=== PATIENT | male | born 1925 | race Caucasian/White ===

== ENCOUNTER 2016-11-27 06:23 | Inpatient (IN) | payer MEDICARE, BC ==
[2016-11-27] MEDS ORDERED: Metoprolol Tartrate 5 MG/5 ML SDV IVPUSH ONE (06:35)
[2016-11-27] MEDS ORDERED: Aspirin 81 MG Tab.Chew CHEW ONE (06:35)
[2016-11-27] MEDS ORDERED: Famotidine 20 MG/2 ML SDV IVPUSH ONE (06:35)
[2016-11-27] MEDS ORDERED: Ticagrelor 90 MG Tab PO ONE (06:35)
[2016-11-27] MEDS ORDERED: Nitroglycerin 0.4 MG Tab.SL SL STA ×2 (06:41→07:02)
[2016-11-27] MEDS: Sodium Chloride 0.9% 10 ML Syringe FLUSH PRN ×2 (06:50→08:20)
--- NOTE | 2016-11-27 06:56 | EDM.PDOC ---
ED HPI GENERAL MEDICAL PROBLEM - General Chief Complaint: Cardiovascular Problem Stated Complaint: chest pain Time Seen by Provider: 11/27/16 06:25 Source of Information: Reports: Patient, Custodial Records (Limited records from [facility]), Old Records ([facility] EMR. No paper hospital chart available.) History Limitations: Reports: No Limitations - History of Present Illness INITIAL COMMENTS - FREE TEXT/NARRATIVE: The patient was brought to the emergency room via transport vehicle from [facility] for evaluation of nonspecific 5/10 bilateral sharp chest pain/pressure with radiation to the right shoulder, right arm, and back region with symptoms starting at about 04:00 A.m. this morning. He was apparently given Tylenol at the [facility] with no other treatment prior to arrival. Note that the symptoms did awaken him from sleep. The patient denies any heart flutter, dizziness, orthostasis, orthopnea, diaphoresis, paresthesias , recent decreased exercise tolerance, or any other anginal-type symptoms, although his overall activity level is low. No recent history of abdominal pain , heartburn, nausea, diarrhea, melena, gross hematochezia, or any food intolerance, including fatty foods, etc.. The patient also denies any recent fever, cough, wheezing, dyspnea, etc.. No history of recent visual changes, diplopia, change in mental status, or other change in neurological status. Also note that the patient's blood pressure was elevated at the [facility] with a reading of 201/109 with mild headache and nonspecific "dopiness" at that time. Onset: Today, Sudden Onset Date: 11/27/16 Onset Time: 04:00 Duration: Improving Location: Reports: Chest, Back, Upper Extremity, Right, Radiates to (As above). Denies: Head, Face, Neck, Abdomen, Pelvis, Upper Extremity, Left Quality: Reports: Ache, Pressure (Tightness), Sharp Severity: Moderate Improves with: Reports: None Worsens with: Reports: None Context: Reports: Other (As above) Associated Symptoms: Reports: Cough. Denies: Confusion, Chest Pain, Diaphoresis , Fever/Chills, Headaches, Loss of Appetite, Malaise, Nausea/Vomiting, Seizure, Shortness of Breath, Syncope, Weakness Treatments DESCRIPTIVE CATALOG LIBRARIAN: Reports: Acetaminophen Bilateral Middle Chest Pain Score (Numeric/FACES): 5 - Related Data Allergies Allergy/AdvReac Type Severity Reaction Status Date / Time No Known Allergies Allergy Verified 11/27/16 06:38 Home Meds: Home Meds Acetaminophen with Codeine [Tylenol with Codeine #3 Tablet] 1 tab PO Q3HR PRN [History] Aspirin [Halfprin] 81 mg PO DAILY 03/14/15 [History] Furosemide [Lasix] 60 mg PO DAILY 03/14/15 [History] Ketotifen [Ketotifen 0.025% Ophth Soln] 2 drop .XX ASDIRECTED PRN 03/14/15 [ History] Loperamide HCl [Imodium A-D] 2 mg PO ONETIME PRN 03/14/15 [History] Metoprolol Tartrate 50 mg PO BID 03/14/15 [History] Miconazole Nitrate [Anti-Fungal Cream] 1 ml TP ASDIRECTED PRN 03/14/15 [History] Multivitamin [Multi-Vitamin Daily] 1 tab PO DAILY 03/14/15 [History] Naproxen Sodium 220 mg PO BID 03/14/15 [History] Naproxen Sodium 220 mg PO DAILY PRN 03/14/15 [History] Potassium Chloride [Klor-Con M20] 20 meq PO DAILY 03/14/15 [History] Simvastatin [Zocor] 40 mg PO BEDTIME 03/14/15 [History] Triamcinolone Acetonide [Triamcinolone Acetonide 0.5%] 1 ml TOP ASDIRECTED PRN 03/14/15 [History] predniSONE [Prednisone] 5 mg PO DAILY 03/14/15 [History] Albuterol/Ipratropium [DuoNeb 3.0-0.5 MG/3 ML] 3 ml NEB Q4HRRT PRN #90 neb 03/20 [Rx] Acetaminophen [Tylenol Arthritis Pain] 650 mg PO BID 11/27/16 [History] Acetaminophen [Tylenol Extra Strength] 500 mg PO BID PRN 11/27/16 [History] Albuterol/Ipratropium [DuoNeb 3.0-0.5 MG/3 ML] 3 ml NEB BID 11/27/16 [History] Capsaicin 1 applic TOP QID PRN 11/27/16 [History] Dextran 70/Hypromellose [Artificial Tears] 1 drop EYEBOTH ASDIRECTED PRN [History] Gabapentin [Neurontin] 300 mg PO BEDTIME 11/27/16 [History] Hydrocortisone [Hydrocortisone 1% Crm] 1 applic TOP QID PRN 11/27/16 [History] Past Medical History HEENT History: Reports: Allergic Rhinitis, Cataract, Hard of Hearing, Impaired Vision, Other (See Below). 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 Denies: Afib, Aneurysm, Arrhythmia, Blood Clots/VTE/DVT, Heart Murmur, Pacemaker, Syncope Other Cardiovascular History: History of OH at age 88 requiring CABG as below, bilateral carotid occlusive disease with surgeries as below Respiratory History: Reports: Bronchitis, Recurrent, COPD, Intubation, Previous. Denies: Asthma, Intubation, Difficult, PE, Pneumothorax, Sleep Apnea Gastrointestinal History: Reports: Chronic Constipation, Chronic Diarrhea, Diverticulosis, GERD, GI Bleed, PUD, Other (See Below). Denies: Bowel Obstruction, Celiac Disease, Cholelithiasis, Colon Polyp, Fecal Incontinence, Gastritis, Hepatitis, Inflammatory Bowel Disease, Irritable Bowel Syndrome, Pancreatitis Other Gastrointestinal History: Upper GI bleed secondary to peptic ulcer disease in the 1980s requiring surgery as below, Mild dysphagia Genitourinary History: Reports: BPH, Retention, Urinary, Urinary Incontinence. Denies: Acute Renal Failure, Chronic Renal Insuffiency, Dialysis, Renal Calculus , STD, UTI, Recurrent Musculoskeletal History: Reports: Arthritis, Back Pain, Chronic, Neck Pain, Chronic, Osteoarthritis, Osteoporosis, RA, Other (See Below). 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 Denies: Alzheimers Disease, Brain Injury, Cerebral Aneurysms, CVA, Headaches, Chronic, Head Trauma, Migraines, MS, Parkinson's, Seizure, TIA Other Neuro History: Possible head concussion in his 30s Psychiatric History: Reports: Anxiety, Depression. Denies: Abuse, Victim of, ADD, ADHD, Addiction, Alzheimers Disease, Dementia, Psych Hospitalization(s), PTSD, Suicide Attempt Endocrine/Metabolic History: Reports: Diabetes, Type II, Multinodular Thyroid, Osteoporosis, Other (See Below). Denies: Hyperthyroidism, Hypothyroidism, IDDM Other Endocrine/Metabolic History: AODM currently treated with diet Hematologic History: Reports: Blood Transfusion(s), Other (See Below). Denies: Anemia, B12 Deficiency, Iron Deficiency Other Hematologic History: Blood transfusion of 2 units packed red blood cells in secondary to peptic ulcer disease as above Immunologic History: Reports: None. Denies: AIDS, HIV, SLE Oncologic (Cancer) History: Reports: Prostate, Other (See Below). Denies: Basal Cell Carcinoma, Hodgkin's Lymphoma, Leukemia, Lymphoma, Malignant Melanoma , Metastatic, Non-Hodgkin's Lymphoma, Squamous Cell Carcinoma, Thyroid Other Oncologic History: Prostate cancer with history of cryotherapy in his late 70s Dermatologic History: Reports: Cellulitis, Chronic Cellulitis, Decubitus Ulcer, Other (See Below). Denies: Eczema, Psoriasis, Venous Stasis Dermatitis Other Dermatologic History: Cutaneous Candidiasis, recurrent diabetic ulcers, recurrent cellulitis - Infectious Disease History Infectious Disease History: Reports: Chicken Pox, Measles, MRSA (Right ankle), Mumps. Denies: C-Difficile, Meningitis, Mononucleosis, Pertussis (Whooping Cough), Rheumatic Fever, Rubella, Scarlet Fever, Shingles, VRE - Past Surgical History Head Surgeries/Procedures: Reports: None HEENT Surgical History: Reports: Cataract Surgery, Eye Surgery, Oral Surgery, Other (See Below). Denies: Adenoidectomy, Laser Surgery, LASIK, Myringotomy w Tube(s), Naso-Sinus Surgery, Tonsillectomy Other HEENT Surgeries/Procedures: bilateral cataract surgery in about 2013, multiple teeth extractions Cardiovascular Surgical History: Reports: Carotid Endarterectomy, Coronary Artery Bypass, Vascular Surgery, Other (See Below). Denies: AAA Repair, Aneurysm, Cardiac Ablation, Coronary Artery Stent, Pacer, Percutaneous Transluminal Angioplasty, Varicose Other Cardiovascular Surgeries/Procedures: Bilateral carotid endarterectomy in about 2010, four-vessel CABG at age 88, right femoral artery bypass/stent placement in about 2010 Respiratory Surgical History: Reports: None. Denies: Lung Biopsies, Thoracentesis GI Surgical History: Reports: Appendectomy, Colonoscopy, Hernia, Inguinal, Other (See Below). Denies: Cholecystectomy, EGD, Hernia Repair/Other, Polypectomy Other GI Surgeries/Procedures: Right inguinal hernia repair in about 2001, appendectomy at about age 17, possible distant colonoscopy Male Surgical History: Reports: Circumcision, Prostate Biopsy, Other (See Below). Denies: Vasectomy Other Male Surgeries/Procedures: Circumcision as an , cryotherapy of prostate cancer as below Endocrine Surgical History: Reports: None. Denies: Thyroid Biopsy Neurological Surgical History: Denies: C-Spine, Discectomy, Laminectomy, Lumbar Spine, Sacral Spine, Vertebroplasty Musculoskeletal Surgical History: Reports: Joint Replacement, Knee Replacement, Shoulder Replacement, Shoulder Surgery, Other (See Below). Denies: Amputation, Arthroscopic Knee, Arthroscopic Procedure, Carpal Tunnel, Ganglion Cyst, Hip Replacement, ORIF Other Musculoskeletal Surgeries/Procedures:: bilateral total knee arthroplasty with right TKA in about 2011 with left TKA in about 2012, right shoulder replacement in 2013 Oncologic Surgical History: Reports: None Dermatological Surgical History: Reports: None - Past Imaging History Past Imaging History: Reports: Angiography (Heart catheterization at age 88), Carotid US (Last carotid artery Doppler studies on 10/17/14), CAT Scan (CT of the abdomen and pelvis on 03/15/15), Swallow Study (03/16/15), Ultrasound (Last ultrasound of thyroid gland on 10/30/16 with previous evaluations on 08/23/15 and 10/13/13) Social & Family History - Family History HEENT: Reports: None. Denies: Glaucoma, Macular Degeneration, Retinal Detachment Cardiac: Reports: CAD, Heart Failure, Other (See Below). Denies: Afib, Aneurysm , Arrhythmia, Blood Clots/VTE/DVT, High Cholesterol, Hypertension, OH, PVD/COD, Syncope Other Cardiac Family History: Father with fatal CHF at age 75, brother with history of 5 vessel CABG at age 75, brother with CABG 2 at an unknown age Respiratory: Reports: None. Denies: Asthma, COPD, PE, Pneumothorax, Sleep Apnea GI: Reports: Cholelithiasis, Other (See Below). Denies: Celiac Disease, GERD, GI bleed, Inflammatory Bowel Disease, Irritable Bowel Syndrome, PUD Other GI Family History: Mother with cholelithiasis : Reports: None. Denies: Dialysis, Renal Calculus, Renal Disease/ Insufficiency OBGYN: Reports: None. Denies: Endometriosis, Recurrent Spontaneous Musculoskeletal: Reports: None. Denies: Gout, RA, SLE Neurological: Reports: CVA, Parkinson's, Other (See Below). Denies: Alzheimers Disease, Cerebral Aneurysms, Dementia, Migraines, MS, Seizure, TIA Other Neurological Family History: Mother with Parkinson's disease, father with CVA in his 70s Psychiatric: Reports: None. Denies: Abuse, Victim of, ADD, ADHD, Anxiety, Depression, Psych Hospitalization(s), PTSD, Suicide Attempt Endocrine/Metabolic: Reports: None. Denies: Diabetes, Type I, Diabetes, type II , Hypothyroidism, IDDM Hematologic: Reports: None. Denies: Anemia Immunologic: Reports: None. Denies: AIDS, HIV, SLE Dermatologic: Reports: None. Denies: Eczema, Psoriasis Oncologic: Reports: None. Denies: Colon, Hodgkin's Lymphoma, Leukemia, Lymphoma - Tobacco Use Smoking Status *Q: Former Smoker Tobacco Use Within Last Twelve Months: No Years of Tobacco use: 37 Packs/Tins Daily: 1 (Smoked between ages 20 and 57 with additional cigar use) Used Tobacco, but Quit: Yes Month Tobacco Last Used: 1984 Smoking Cessation Information Provided To Patient: No Second Hand Smoke Exposure: No Second Hand Smoke Education Provided: No - Caffeine Use Caffeine Use: Reports: Coffee (One cup per day). Denies: Energy Drinks, Soda, Tea - Alcohol Use Alcohol Use History: Yes Days Per Week of Alcohol Use: 0 (No previous DWIs, problems with alcohol abuse, etc.) Number of Drinks Per Day: 0 (No alcohol use since age 89) Total Drinks Per Week: 0 Alcohol Use in Last Twelve Months: No - Recreational Drug Use Recreational Drug Use: No Drug Use in Last 12 Months: No Recreational Drug Type: Denies: Amphetamines (Speed), Ativan, Cocaine, Heroin, Inhalants (Glues, Solvents, Aerosols), LSD (Acid), Marijuana/Hashish, Methamphetamine, Morphine - Living Situation & Occupation Living situation: Reports: Extended Care Facility ([facility] in [place], basic side admitted 09/10/14) 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 Denies: Fever, Chills, Malaise, Weakness , Fatigue, Night Sweats, Diaphoresis, Decreased Appetite, Weight Loss, Weight Gain HEENT: Reports: Glasses, Hearing Loss (Stable chronic). Denies: Dental Pain, Ear Discharge, Ear Pain, Eye Pain, Rhinitis, Sinus Problem, Throat Pain, Throat Swelling, Vertigo Respiratory: Reports: No Symptoms. Denies: Shortness of Breath, Wheezing, Pleuritic Chest Pain, Cough, Sputum Cardiovascular: Reports: Chest Pain, Blood Pressure Problem, Edema (Dependent). Denies: Claudication, Dyspnea on Exertion, Lightheadedness, Orthopnea, Palpitations, PND, Syncope Endocrine: Reports: No Symptoms. Denies: Fatigue GI/Abdominal: Denies: Abdominal Pain, Anorexia, Black Stool, Bloody Stool, Constipation, Diarrhea, Decreased Appetite, Difficulty Swallowing, Distension, Flatus, Hematemesis, Hematochezia, Melena, Mucous in Stool, Nausea, Stool Incontinence, Vomiting : Reports: Incontinence (Stable). Denies: Discharge, Dysuria, Flank Pain, Frequency, Hematuria, Pain, Urgency, Urinary Retention Musculoskeletal: Reports: Shoulder Pain (Right), Arm Pain (Right). Denies: Neck Pain, Back Pain Skin: Reports: Erythema, Wound (Right lateral malleolus). Denies: Diaphoresis, Bruising, Pruritis Neurological: Reports: Headache, Difficulty Walking (Uses cane). Denies: Confusion, Dizziness, Numbness, Paresthesia, Seizure, Syncope, Tingling, Trouble Speaking, Weakness, Change in Speech Psychiatric: Reports: No Symptoms. Denies: Agitation, Anxiety, Confusion, Depression, Hallucinations, Homicidal Ideation, Suicidal Ideation Hematologic/Lymphatic: Reports: No Symptoms Immunologic: Reports: No Symptoms ED EXAM, GENERAL - Physical Exam Exam: See Below Exam Limited By: No Limitations General Appearance: Alert, WD/WN, No Apparent Distress Eye Exam: Bilateral Eye: EOMI, Normal Inspection (No nystagmus), Periorbital Changes Ears: Normal External Exam, Normal Canal, Normal TMs, Hearing Loss (Moderate bilateral presbycusis with patient only wearing his right hearing aid) Nose: Normal Inspection, Normal Mucosa, No Blood Throat/Mouth: Normal Lips, Normal Teeth (Complete upper dentures and partial lowers), Normal Gums, Normal Oropharynx, Normal Voice, No Airway Compromise. No : Dysphagia, Perioral Cyanosis Head: Atraumatic, Normocephalic. No: Facial Swelling, Facial Tenderness, Sinus Tenderness Neck: Supple, Non-Tender, Full Range of Motion, Carotid Bruit (Mild bilateral carotid bruits versus transmitted heart sounds). No: Lymphadenopathy (L), Thyromegaly (Despite history as above) Respiratory/Chest: No Respiratory Distress, No Accessory Muscle Use, Chest Non- Tender, Rales (Mild bilateral basilar rales). No: Rhonchi, Wheezing, Pleural Rub, Retractions Cardiovascular: Normal Peripheral Pulses, Regular Rate, Rhythm, No Gallop, No JVD, No Murmur, No Rub, Systolic Murmur (Mild 1/6 CAPO of the aortic valve). No : No Edema (Dependent edema as below), Diastolic Murmur, Gallop/S3, Gallop/S4, Extra Beats (No extrasystoles at time of exam), Friction Rub Peripheral Pulses: 2+: Radial (L), Radial (R), Dorsalis Pedis (L), Dorsalis Pedis (R) GI/Abdominal: Normal Bowel Sounds, Soft, Non-Tender, No Organomegaly, No Distention, No Abnormal Bruit, No Mass, Pelvis Stable. No: Guarding (Male) Exam: Deferred Rectal (Males) Exam: Deferred Back Exam: Normal Inspection, Full Range of Motion. No: CVA Tenderness (L), CVA Tenderness (R), Muscle Spasm Extremities: Non-Tender, Normal Capillary Refill, Pedal Edema (+1 bilateral pedal/pretibial edema), Limited Range of Motion (Right shoulder secondary to previous surgery), Redness (As below), Other (1 cm grade 2 diabetic/pressure ulcer with eschar noted over the right lateral malleolus, dressing in place with no discharge, 4 cm area surrounding +1 erythema with no lymphangitis). No : Monet's Sign Neurological: Alert, Oriented, CN II-XII Intact, Normal Cognition, Normal Gait, Normal Reflexes (Negative Babinski's), No Motor/Sensory Deficits Psychiatric: Normal Affect, Normal Mood Skin Exam: Erythema (As above), Wound/Incision (As above). No: Diaphoretic, Ecchymosis Lymphatic: No Adenopathy EKG INTERPRETATION EKG Date: 11/27/16 Time: 06:20 Rhythm: NSR Rate (Beats/Min): 71 [place]: Normal (Left cardiac) P-Wave: Present (Mild diffuse biphasic P waves with extreme poor R-wave progression in the anterior leads) QRS: Normal (QRS interval of 0.09 seconds) ST-T: Normal QT: Normal IL/PQ Interval: 0.22 seconds representing a first degree AV block Comparison: NA - No Prior EKG EKG Interpretation Comments: 1. No acute ischemic changes 2. First-degree AV block Course - Vital Signs Last Recorded V/S: Last Vital Signs Temp 36.5 C 11/27/16 06:32 Pulse 66 11/27/16 08:26 Resp 19 11/27/16 08:26 BP 107/60 11/27/16 08:26 Pulse Ox 100 11/27/16 08:26 Vital Signs - 24 hr 11/27/16 11/27/16 11/27/16 06:29 06:32 06:35 Temperature [ 36.5 C Temporal] Pulse, Peripheral Pulse, 70 Peripheral [ Right Pulse Oximetry] Respiratory 17 Rate Blood Pressure Blood Pressure 219/101 H [Right Upper Arm] O2 Sat by Pulse 100 Oximetry O2 Sat by Pulse 100 100 Oximetry [ Nasal Cannula] 11/27/16 11/27/16 11/27/16 06:37 06:48 06:49 Temperature [ Temporal] Pulse, 74 Peripheral Pulse, 74 Peripheral [ Right Pulse Oximetry] Respiratory 18 Rate Blood Pressure 215/93 H 215/93 H Blood Pressure 215/93 H [Right Upper Arm] O2 Sat by Pulse 99 Oximetry O2 Sat by Pulse Oximetry [ Nasal Cannula] 11/27/16 11/27/16 11/27/16 06:55 07:02 07:03 Temperature [ Temporal] Pulse, Peripheral Pulse, 71 73 Peripheral [ Right Pulse Oximetry] Respiratory 20 Rate Blood Pressure 205/109 H Blood Pressure 205/109 H 205/109 H [Right Upper Arm] O2 Sat by Pulse 100 Oximetry O2 Sat by Pulse Oximetry [ Nasal Cannula] 11/27/16 11/27/16 11/27/16 07:10 07:20 07:22 Temperature [ Temporal] Pulse, Peripheral Pulse, 73 72 71 Peripheral [ Right Pulse Oximetry] Respiratory 21 H 20 20 Rate Blood Pressure Blood Pressure 168/101 H 168/101 H 123/75 [Right Upper Arm] O2 Sat by Pulse 100 100 99 Oximetry O2 Sat by Pulse Oximetry [ Nasal Cannula] 11/27/16 11/27/16 11/27/16 07:40 07:55 08:15 Temperature [ Temporal] Pulse, Peripheral Pulse, 67 71 70 Peripheral [ Right Pulse Oximetry] Respiratory 15 15 18 Rate Blood Pressure 192/86 H Blood Pressure 148/85 H 185/97 H 192/86 H [Right Upper Arm] O2 Sat by Pulse 94 L 100 100 Oximetry O2 Sat by Pulse Oximetry [ Nasal Cannula] 11/27/16 08:26 Temperature [ Temporal] Pulse, Peripheral Pulse, 66 Peripheral [ Right Pulse Oximetry] Respiratory 19 Rate Blood Pressure Blood Pressure 107/60 [Right Upper Arm] O2 Sat by Pulse 100 Oximetry O2 Sat by Pulse Oximetry [ Nasal Cannula] - Orders/Labs/Meds Orders: Active Orders 24 hr Category Date Time Status Cardiac Monitoring [RC] . DIRECTED Care 11/27/16 06:35 Active EKG Documentation Completion [RC] ASDIRECTED Care 11/27/16 06:35 Active Oxygen Therapy, ED [RC] CONTINUOUS Care 11/27/16 06:35 Active Peripheral IV Care [RC] . DIRECTED Care 11/27/16 06:35 Active Pulse Oximetry [RC] CONTINUOUS Care 11/27/16 06:35 Active Up With Assistance [RC] PFP Care 11/27/16 06:35 Active Vital Signs [RC] PFP Care 11/27/16 06:35 Active Nothing per Oral Now Diet [DIET] Diet 11/27/16 Breakfast Active Chest 1V Frontal [CR] Stat Exams 11/27/16 06:35 Ordered CULTURE WOUND + SMEAR [RM] Stat Lab 11/27/16 07:19 Uncollected Nitroglycerin [Nitrostat] Med 11/27/16 06:41 Stat 0.4 mg SL ONETIME STA Nitroglycerin [Nitrostat] Med 11/27/16 07:02 Stat 0.4 mg SL ONETIME STA Sodium Chloride 0.9% [Saline Flush] Med 11/27/16 06:35 Active 10 ml FLUSH ASDIRECTED PRN Obtain Past Medical Record [OM.PC] Urgent Oth 11/27/16 06:35 Active Peripheral IV Insertion Adult [OM.PC] Stat Oth 11/27/16 06:35 Ordered Resuscitation Status Stat Resus Stat 11/27/16 06:35 Ordered EKG 12 Lead [EK] Stat Ther 11/27/16 06:20 Ordered Medication Orders Isosorbide Mononitrate (Imdur) 30 mg PO DAILY SINA Last Admin: 11/27/16 08:15 Dose: 30 mg Nitroglycerin (Nitrostat) 0.4 mg SL ONETIME STA Stop: 11/28/16 06:42 Last Admin: 11/27/16 06:49 Dose: 0.4 mg Nitroglycerin (Nitrostat) 0.4 mg SL ONETIME STA Stop: 11/28/16 07:03 Last Admin: 11/27/16 07:03 Dose: 0.4 mg Sodium Chloride (Saline Flush) 10 ml FLUSH ASDIRECTED PRN PRN Reason: Keep Vein Open Last Admin: 11/27/16 06:50 Dose: 10 ml Labs: Laboratory Tests 11/27/16 11/27/16 11/27/16 Range/Units 06:30 06:30 06:30 WBC 7.0 (4.0-10.2) K/uL RBC 4.68 (4.33-5.41) M/uL Hgb 14.4 (13.1-16.8) g/dL Hct 43.6 (39.0-49.0) % MCV 93.2 (84.0-98.0) fL MCH 30.8 (28.2-33.3) pg MCHC 33.0 (31.7-36.0) g/dL RDW 12.5 (11.2-14.1) % Plt Count 187 (150-350) K/uL Neut % (Auto) 59.6 (45.0-80.0) % Lymph % (Auto) 27.5 (10.0-50.0) % [place] % (Auto) 8.0 (2.0-14.0) % Eos % (Auto) 3.9 (0.0-5.0) % Baso % (Auto) 1.0 (0.0-2.0) % Neut # (Auto) 4.16 (1.40-7.00) K/uL Lymph # (Auto) 1.92 (0.50-3.50) K/uL [place] # (Auto) 0.56 (0.00-1.00) K/uL Eos # (Auto) 0.27 (0.00-0.50) K/uL Baso # (Auto) 0.07 (0.00-0.20) K/uL PT 10.9 (9.8-11.7) SEC INR 1.0 APTT 24.8 (23.5-30.0) SEC D-Dimer, Quantitative 638 H (0-400) ng/mL Sodium (136-145) mmol/L Potassium (3.5-5.1) mmol/L Chloride (98-107) mmol/L Carbon Dioxide (21.0-32.0) mmol/L BUN (7-18) mg/dL Creatinine (0.51-1.17) mg/dL Est Cr Clr Drug Dosing Estimated GFR (MDRD) mL/min Glucose (74-106) mg/dL Lactic Acid (0.4-2.0) mmol/L Uric Acid (2.6-7.2) mg/dL Calcium (8.5-10.1) mg/dL Magnesium (1.8-2.4) mg/dL Total Bilirubin (0.2-1.0) mg/dL AST (15-37) U/L ALT (12-78) U/L Alkaline Phosphatase (46-116) IU/L Creatine Kinase (26-308) U/L Creatine Kinase Index (0.0-2.5) % CK-MB (CK-2) (0.00-3.60) ng/mL Troponin I (0.000-0.056) ng/mL Eko-V-Hnkoitvrboh Pept (0-125) pg/mL Total Protein (6.4-8.2) g/dL Albumin (3.4-5.0) g/dL TSH, Ultra Sensitive (0.358-3.740) mIU/mL 11/27/16 11/27/16 Range/Units 06:30 06:30 WBC (4.0-10.2) K/uL RBC (4.33-5.41) M/uL Hgb (13.1-16.8) g/dL Hct (39.0-49.0) % MCV (84.0-98.0) fL MCH (28.2-33.3) pg MCHC (31.7-36.0) g/dL RDW (11.2-14.1) % Plt Count (150-350) K/uL Neut % (Auto) (45.0-80.0) % Lymph % (Auto) (10.0-50.0) % [place] % (Auto) (2.0-14.0) % Eos % (Auto) (0.0-5.0) % Baso % (Auto) (0.0-2.0) % Neut # (Auto) (1.40-7.00) K/uL Lymph # (Auto) (0.50-3.50) K/uL [place] # (Auto) (0.00-1.00) K/uL Eos # (Auto) (0.00-0.50) K/uL Baso # (Auto) (0.00-0.20) K/uL PT (9.8-11.7) SEC INR APTT (23.5-30.0) SEC D-Dimer, Quantitative (0-400) ng/mL Sodium 140 (136-145) mmol/L Potassium 4.2 (3.5-5.1) mmol/L Chloride 102 (98-107) mmol/L Carbon Dioxide 31.2 (21.0-32.0) mmol/L BUN 26 H (7-18) mg/dL Creatinine 1.24 H (0.51-1.17) mg/dL Est Cr Clr Drug Dosing TNP Estimated GFR (MDRD) 55 mL/min Glucose 127 H (74-106) mg/dL Lactic Acid 0.5 (0.4-2.0) mmol/L Uric Acid 7.3 H (2.6-7.2) mg/dL Calcium 8.9 (8.5-10.1) mg/dL Magnesium 2.1 (1.8-2.4) mg/dL Total Bilirubin 0.5 (0.2-1.0) mg/dL AST 34 (15-37) U/L ALT 27 (12-78) U/L Alkaline Phosphatase 45 L (46-116) IU/L Creatine Kinase 60 (26-308) U/L Creatine Kinase Index 3.5 H (0.0-2.5) % CK-MB (CK-2) 2.10 (0.00-3.60) ng/mL Troponin I 0.021 (0.000-0.056) ng/mL Nho-H-Ubnzmclexrh Pept 1124 H (0-125) pg/mL Total Protein 7.0 (6.4-8.2) g/dL Albumin 3.7 (3.4-5.0) g/dL TSH, Ultra Sensitive 1.357 (0.358-3.740) mIU/mL Meds: Medications Generic Name Dose Route Start Last Admin Trade Name Freq PRN Reason Stop Dose Admin Isosorbide Mononitrate 30 mg 11/27/16 08:00 11/27/16 08:15 Imdur PO 30 mg DAILY SINA Administration Nitroglycerin 0.4 mg 11/27/16 06:41 11/27/16 06:49 Nitrostat SL 11/28/16 06:42 0.4 mg ONETIME STA Administration Nitroglycerin 0.4 mg 11/27/16 07:02 11/27/16 07:03 Nitrostat SL 11/28/16 07:03 0.4 mg ONETIME STA Administration Sodium Chloride 10 ml 11/27/16 06:35 11/27/16 08:20 Saline Flush FLUSH 10 ml ASDIRECTED PRN Administration Keep Vein Open Discontinued Medications Generic Name Dose Route Start Last Admin Trade Name Freq PRN Reason Stop Dose Admin Aspirin 324 mg 11/27/16 06:35 11/27/16 06:48 Aspirin CHEW 11/27/16 06:36 324 mg ONETIME ONE Administration Famotidine 40 mg 11/27/16 06:35 11/27/16 06:48 Pepcid IVPUSH 11/27/16 06:36 40 mg ONETIME ONE Administration Furosemide 60 mg 11/27/16 07:02 11/27/16 07:05 Lasix IVPUSH 11/27/16 07:03 60 mg NOW ONE Administration Labetalol HCl 10 mg 11/27/16 07:11 11/27/16 07:14 Normodyne IVPUSH 11/27/16 07:12 10 mg ONETIME ONE Administration Protocol Labetalol HCl 10 mg 11/27/16 07:59 11/27/16 08:18 Normodyne IVPUSH 11/27/16 08:00 10 mg ONETIME ONE Administration Protocol Metoprolol Tartrate 2.5 mg 11/27/16 06:35 11/27/16 06:48 Lopressor IVPUSH 11/27/16 06:36 2.5 mg ONETIME ONE Administration Ticagrelor 180 mg 11/27/16 06:35 11/27/16 06:48 Brilinta PO 11/27/16 06:36 180 mg ONETIME ONE Administration - Radiology Interpretation Free Text/Narrative:: manager monitoring shows overall normal sinus rhythm with average heart rate in the 70s with occasional PVCs noted but no other significant arrhythmia Chest x-ray, portable, shows severe cardiomegaly with moderate CHF and COPD changes, however no pulmonary infiltrates, etc. Note status post medial sternotomy and right shoulder arthroplasty. Inna nye also noted Departure - Departure Time of Disposition: 08:30 Disposition: Admitted As Inpatient 68 Condition: Fair Clinical Impression: CHF (congestive heart failure), Coronary artery disease, Hypertension, D-dimer , elevated, Need for comfort care, Peptic reflux disease, Osteoarthritis, COPD ( chronic obstructive pulmonary disease), Mixed anxiety depressive disorder, Chest pain, PVCs (premature ventricular contractions), First degree AV block, Diabetes mellitus, Renal insufficiency - Problem List & Annotations (1) Chest pain SNOMED Code(s): 96852934 Code(s): R07.9 - CHEST PAIN, UNSPECIFIED Status: Acute Priority: High Current Visit: Yes Onset Date: 11/27/16 Annotation/Comment:: Chest pain protocol initiated in the emergency room. Telephone consultation at 07:45 a.m. this morning with Dr. Flanagan, hospitalist at the [facility] in [place], with no bed available in that facility. Various therapeutic options were given to the patient, who does not wish to be transferred to [place], including no further cardiology consultation, workup, procedures, etc. Note comfort care/no code status, which was confirmed with the patient today. Aggressive IV Lopressor, IV labetalol, IV Lasix, sublingual nitroglycerin etc. therapy as above was needed to control the patient's blood pressure and also as cardiac prophylaxis. Prognosis guarded with significantly elevated BNP and moderate CHF by chest x- ray. No echocardiogram or further cardiac workup secondary to his comfort care status as above. Initiate lisinopril, which would be beneficial both for his hypertension, diabetes, and CHF Qualifiers: Chest pain type: chest pain due to myocardial ischemia Ischemic chest pain type: unstable angina pectoris Qualified Code(s): I20.0 - Unstable angina (2) Hypertension SNOMED Code(s): 85643185 Code(s): I10 - ESSENTIAL (PRIMARY) HYPERTENSION Status: Acute Priority: High Current Visit: Yes Annotation/Comment:: Borderline hypertensive crisis on admission somewhat refractory to therapy as above. Continue medication adjustments during this hospitalization. Patient seems to respond better to labetalol with this therapy to be initiated on admission with additional Imdur as above Qualifiers: Hypertension type: essential hypertension Qualified Code(s): I10 - Essential (primary) hypertension (3) Coronary artery disease SNOMED Code(s): 55755402 Code(s): I25.10 - ATHSCL HEART DISEASE OF [place] CORONARY ARTERY W/O ANG PCTRS Status: Chronic Priority: High Current Visit: Yes Annotation/ Comment:: Note status post CABG as above Qualifiers: Coronary Disease-Associated Artery/Lesion type: bypass graft, autologous vein Associated angina: with unstable angina Qualified Code(s): I25.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 IV Lasix given in the emergency room Qualifiers: Congestive heart failure type: unspecified congestive heart failure type Congestive heart failure chronicity: unspecified congestive heart failure chronicity Qualified Code(s): I50.9 - Heart failure, unspecified (6) COPD (chronic obstructive pulmonary disease) SNOMED Code(s): 47510933 Code(s): J44.9 - CHRONIC OBSTRUCTIVE PULMONARY DISEASE, UNSPECIFIED Status : Chronic Priority: Medium Current Visit: Yes Annotation/Comment:: COPD by chest x-ray with no recent fever or bronchitic type symptoms Qualifiers: COPD type: emphysema Emphysema type: panlobular Qualified Code(s): J43.1 - Panlobular emphysema (7) D-dimer, elevated SNOMED Code(s): 057062995 Code(s): R79.89 - OTHER SPECIFIED ABNORMAL FINDINGS OF BLOOD CHEMISTRY Status: Acute Priority: High Current Visit: Yes Onset Date: 11/27/16 Annotation/Comment:: No clinical evidence of DVT or PE. CTA of the chest and venous Doppler studies of the lower extremities will be ordered shortly after admission. Delay of subcutaneous Lovenox for now secondary to labile blood pressures (8) Mixed anxiety depressive disorder SNOMED Code(s): 436095698 Code(s): F41.8 - OTHER SPECIFIED ANXIETY DISORDERS Status: Chronic Priority: Medium Current Visit: Yes Annotation/Comment:: Stable by history (9) Osteoarthritis SNOMED Code(s): 435959228 Code(s): M19.90 - UNSPECIFIED OSTEOARTHRITIS, UNSPECIFIED SITE Status: Chronic Priority: Medium Current Visit: Yes Annotation/Comment:: Stable by history Qualifiers: Osteoarthritis location: multiple joints Osteoarthritis type: primary Qualified Code(s): M15.0 - Primary generalized (osteo)arthritis (10) Peptic reflux disease SNOMED Code(s): 08323626 Code(s): K21.9 - GASTRO-ESOPHAGEAL REFLUX DISEASE WITHOUT ESOPHAGITIS Status: Chronic Priority: Medium Current Visit: Yes Annotation/Comment:: Stable by history with high-dose IV Pepcid given in the emergency room (11) Cellulitis, leg SNOMED Code(s): 065178579 Code(s): L03.119 - CELLULITIS OF UNSPECIFIED PART OF LIMB Status: Chronic Priority: Medium Current Visit: No Annotation/Comment:: Wound culture specimen obtained. Wound cleansed with exiting in the emergency room. 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 IV Lasix therapy with caution. Lisinopril as above. Glycosylated hemoglobin later today Qualifiers: Diabetes mellitus type: type 2 Diabetes mellitus complication status: with kidney complications Diabetes mellitus termite helper insulin use: without termite helper use Chronic kidney disease stage: stage 2 (mild) (13) First degree AV block SNOMED Code(s): 951492157 Code(s): I44.0 - ATRIOVENTRICULAR BLOCK, FIRST DEGREE Status: Acute Priority: Medium Current Visit: Yes Onset Date: 11/27/16 Annotation/ Comment:: Observe for now. Continue beta rosana therapy with caution (14) PVCs (premature ventricular contractions) SNOMED Code(s): 70445558 Code(s): I49.3 - VENTRICULAR PREMATURE DEPOLARIZATION Status: Acute Priority: High Current Visit: Yes Onset Date: 11/27/16 Annotation/Comment: : As above. Beta rosana therapy given in the emergency room (15) Renal insufficiency SNOMED Code(s): 225882470 Code(s): N28.9 - DISORDER OF KIDNEY AND URETER, UNSPECIFIED Status: Acute Priority: High Current Visit: Yes Onset Date: 11/27/16 Annotation/ Comment:: As above (16) Hyperlipidemia SNOMED Code(s): 99752711 Code(s): E78.5 - HYPERLIPIDEMIA, UNSPECIFIED Status: Chronic Priority: Medium Current Visit: Yes Annotation/Comment:: Lipid panel later today. Currently under therapy Qualifiers: Hyperlipidemia type: unspecified Qualified Code(s): E78.5 - Hyperlipidemia , unspecified - Problem List Review Problem List Initiated/Reviewed/Updated: Yes - My Orders Last 24 Hours: My Active Orders 11/27/16 06:20 EKG 12 Lead [EK] Stat 11/27/16 06:35 Cardiac Monitoring [RC] . DIRECTED EKG Documentation Completion [RC] ASDIRECTED Oxygen Therapy, ED [RC] CONTINUOUS Peripheral IV Care [RC] . DIRECTED Pulse Oximetry [RC] CONTINUOUS Up With Assistance [RC] PFP Vital Signs [RC] PFP Chest 1V Frontal [CR] Stat Sodium Chloride 0.9% [Saline Flush] 10 ml FLUSH ASDIRECTED PRN Obtain Past Medical Record [OM.PC] Urgent Peripheral IV Insertion Adult [OM.PC] Stat Resuscitation Status Stat 11/27/16 06:41 Nitroglycerin [Nitrostat] 0.4 mg SL ONETIME STA 11/27/16 07:02 Nitroglycerin [Nitrostat] 0.4 mg SL ONETIME STA 11/27/16 07:19 CULTURE WOUND + SMEAR [RM] Stat 11/27/16 Breakfast Nothing per Oral Now Diet [DIET] - Assessment/Plan Admission H&P: Please use this note as an admission H&P Last 24 Hours: My Active Orders 11/27/16 06:20 EKG 12 Lead [EK] Stat 11/27/16 06:35 Cardiac Monitoring [RC] . DIRECTED EKG Documentation Completion [RC] ASDIRECTED Oxygen Therapy, ED [RC] CONTINUOUS Peripheral IV Care [RC] . DIRECTED Pulse Oximetry [RC] CONTINUOUS Up With Assistance [RC] PFP Vital Signs [RC] PFP Chest 1V Frontal [CR] Stat Sodium Chloride 0.9% [Saline Flush] 10 ml FLUSH ASDIRECTED PRN Obtain Past Medical Record [OM.PC] Urgent Peripheral IV Insertion Adult [OM.PC] Stat Resuscitation Status Stat 11/27/16 06:41 Nitroglycerin [Nitrostat] 0.4 mg SL ONETIME STA 11/27/16 07:02 Nitroglycerin [Nitrostat] 0.4 mg SL ONETIME STA 11/27/16 07:19 CULTURE WOUND + SMEAR [RM] Stat 11/27/16 Breakfast Nothing per Oral Now Diet [DIET] Assessment:: As above Plan: As above. Extensive precautions were given to the patient, who is in agreement with the treatment plan. The patient will require about 3-4 days of inpatient/ acute care secondary to multiple health problems as above. René paul physician assumes care during today with [facility] to assume care tomorrow morning.
[2016-11-27] MEDS ORDERED: Furosemide 40 MG/4 ML VIAL IVPUSH ONE (07:02)
[2016-11-27] MEDS ORDERED: Labetalol 20 MG/4 ML Syringe IVPUSH ONE ×2 (07:11→07:59)
[2016-11-27 07:29] LABS: CHLORIDE,CL 102 mmol/L (98-107); SODIUM,NA 140 mmol/L (136-145)
[2016-11-27] MEDS ORDERED: Isosorbide Mononitrate 30 MG Tab.ER PO SCH (08:00)
[2016-11-27] MEDS ORDERED: CAPSAICIN TOP PRN (08:38)
[2016-11-27] MEDS ORDERED: Polyvinyl Alcohol 1.4% Ophth Soln 15 ML Bottle EYEBOTH PRN (08:38)
[2016-11-27] MEDS ORDERED: Temazepam 15 MG Cap PO PRN (08:40)
[2016-11-27] MEDS ORDERED: Sodium Chloride 0.9% 10 ML Syringe FLUSH PRN (08:40)
[2016-11-27] MEDS ORDERED: Lisinopril 10 MG Tab PO SCH (08:45)
[2016-11-27] MEDS ORDERED: Albuterol/Ipratropium 3.0-0.5 MG/3 ML Neb Soln NEB PRN (08:46)
[2016-11-27] MEDS ORDERED: Iopamidol 755 Mg/ML 100 ML Bottle IVPUSH ONE (09:00)
[2016-11-27] MEDS ORDERED: Albuterol 0.083% 2.5 MG/3 ML Neb Soln INH PRN (10:00)
[2016-11-27] MEDS ORDERED: Acetaminophen 325 MG Tab PO PRN (10:00)
[2016-11-27] MEDS: Potassium Chloride 20 MEQ Tab.ER PO SCH ×2 (10:32→12:14)
[2016-11-27] MEDS ORDERED: Furosemide 40 MG/4 ML VIAL IVPUSH SCH (12:00)
[2016-11-27] MEDS ORDERED: Albuterol/Ipratropium 3.0-0.5 MG/3 ML Neb Soln NEB SCH (14:00)
--- NOTE | 2016-11-27 14:32 | PCM.DCSUM1 ---
Discharge Summary - Discharge Data Discharge Date: 11/27/16 Discharge Disposition: DC/Tfer to Acute Hospital 02 Condition: Good - Discharge Diagnosis/Problem(s) (1) CHF (congestive heart failure) SNOMED Code(s): 29769538 ICD Code: I50.9 - HEART FAILURE, UNSPECIFIED Status: Acute Priority: High Current Visit: Yes Onset Date: 11/27/16 Problem Details: As above. IV Lasix given in the emergency room Qualifiers: Congestive heart failure type: unspecified congestive heart failure type Congestive heart failure chronicity: unspecified congestive heart failure chronicity Qualified Code(s): I50.9 - Heart failure, unspecified (2) Chest pain SNOMED Code(s): 02316623 ICD Code: R07.9 - CHEST PAIN, UNSPECIFIED Status: Acute Priority: High Current Visit: Yes Onset Date: 11/27/16 Problem Details: Chest pain protocol initiated in the emergency room. Telephone consultation at 07:45 a.m. this morning with Dr. Flanagan, hospitalist at the [facility] in [place], with no bed available in that facility. Various therapeutic options were given to the patient, who does not wish to be transferred to [place], including no further cardiology consultation, workup, procedures, etc. Note comfort care/no code status, which was confirmed with the patient today. Aggressive IV Lopressor, IV labetalol, IV Lasix, sublingual nitroglycerin etc. therapy as above was needed to control the patient's blood pressure and also as cardiac prophylaxis. Prognosis guarded with significantly elevated BNP and moderate CHF by chest x- ray. No echocardiogram or further cardiac workup secondary to his comfort care status as above. Initiate lisinopril, which would be beneficial both for his hypertension, diabetes, and CHF Qualifiers: Chest pain type: chest pain due to myocardial ischemia Ischemic chest pain type: unstable angina pectoris Qualified Code(s): I20.0 - Unstable angina (3) D-dimer, elevated SNOMED Code(s): 980920341 ICD Code: R79.89 - OTHER SPECIFIED ABNORMAL FINDINGS OF BLOOD CHEMISTRY Status: Acute Priority: High Current Visit: Yes Onset Date: 11/27/16 Problem Details: No clinical evidence of DVT or PE. CTA of the chest and venous Doppler studies of the lower extremities negative for DVT/PE. Delay of subcutaneous Lovenox for now secondary to labile blood pressures (4) First degree AV block SNOMED Code(s): 825568291 ICD Code: I44.0 - ATRIOVENTRICULAR BLOCK, FIRST DEGREE Status: Acute Priority: Medium Current Visit: Yes Onset Date: 11/27/16 Problem Details: Observe for now. Continue beta rosana therapy with caution (5) Hypertension SNOMED Code(s): 19663132 ICD Code: I10 - ESSENTIAL (PRIMARY) HYPERTENSION Status: Acute Priority: High Current Visit: Yes Problem Details: Borderline hypertensive crisis on admission somewhat refractory to therapy as above. Continue medication adjustments during this hospitalization. Patient seems to respond better to labetalol with this therapy to be initiated on admission with additional Imdur as above Qualifiers: Hypertension type: essential hypertension Qualified Code(s): I10 - Essential (primary) hypertension (6) PVCs (premature ventricular contractions) SNOMED Code(s): 34922976 ICD Code: I49.3 - VENTRICULAR PREMATURE DEPOLARIZATION Status: Acute Priority: High Current Visit: Yes Onset Date: 11/27/16 Problem Details: As above. Beta rosana therapy given in the emergency room (7) Renal insufficiency SNOMED Code(s): 936582943 ICD Code: N28.9 - DISORDER OF KIDNEY AND URETER, UNSPECIFIED Status: Acute Priority: High Current Visit: Yes Onset Date: 11/27/16 Problem Details : As above (8) COPD (chronic obstructive pulmonary disease) SNOMED Code(s): 92699681 ICD Code: J44.9 - CHRONIC OBSTRUCTIVE PULMONARY DISEASE, UNSPECIFIED Status : Chronic Priority: Medium Current Visit: Yes Problem Details: COPD by chest x-ray with no recent fever or bronchitic type symptoms Qualifiers: COPD type: emphysema Emphysema type: panlobular Qualified Code(s): J43.1 - Panlobular emphysema (9) Coronary artery disease SNOMED Code(s): 86008851 ICD Code: I25.10 - ATHSCL HEART DISEASE OF [place] CORONARY ARTERY W/O ANG PCTRS Status: Chronic Priority: High Current Visit: Yes Problem Details : Note status post CABG as above Qualifiers: Coronary Disease-Associated Artery/Lesion type: bypass graft, autologous vein Associated angina: with unstable angina Qualified Code(s): I25.710 - 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 IV Lasix therapy with caution. Lisinopril as above. 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 SNOMED Code(s): 431416920 ICD Code: F41.8 - OTHER SPECIFIED ANXIETY DISORDERS Status: Chronic Priority: Medium Current Visit: Yes Problem Details: Stable by history (13) Need for comfort care SNOMED Code(s): 102886874 ICD Code: [id number] - Status: Chronic Priority: Medium Current Visit: Yes Problem Details: As above with comfort care verified with the patient today (14) Osteoarthritis SNOMED Code(s): 949540204 ICD Code: M19.90 - UNSPECIFIED OSTEOARTHRITIS, UNSPECIFIED SITE Status: Chronic Priority: Medium Current Visit: Yes Problem Details: Stable by history Qualifiers: Osteoarthritis location: multiple joints Osteoarthritis type: primary Qualified Code(s): M15.0 - Primary generalized (osteo)arthritis (15) Peptic reflux disease SNOMED Code(s): 46459634 ICD Code: K21.9 - GASTRO-ESOPHAGEAL REFLUX DISEASE WITHOUT ESOPHAGITIS Status: Chronic Priority: Medium Current Visit: Yes Problem Details: Stable by history with high-dose IV Pepcid given in the emergency room (16) Cellulitis, leg SNOMED Code(s): 495715967 ICD Code: L03.119 - CELLULITIS OF UNSPECIFIED PART OF LIMB Status: Chronic Priority: Medium Current Visit: No Problem Details: Wound culture specimen obtained. Wound cleansed with exiting in the emergency room. Apparently been followed by physicians at [facility] with previous history of recent MRSA Qualifiers: Laterality: left Qualified Code(s): L03.116 - Cellulitis of left lower limb (17) Urinary retention SNOMED Code(s): 433378614 ICD Code: R33.9 - RETENTION OF URINE, UNSPECIFIED Status: Acute Priority : High Current Visit: Yes Onset Date: ~11/27/16 Problem Details: Unable to place Edwards/inflate balloon. Straight cath performed. 1100cc retained urine drained. Bloody urine noted immediately afterwards s/p catheter attempts - Patient Summary/Data Hospital Course: Patient's BP improved after admission. Chest pain resolved. Initial Troponin and CKMB negative. Patient received IV lasix. Edwards ordered. Patient noted to have over one liter of retained urine via bladder scan. Nursing staff unable to place Edwards, having difficulty passing the Edwards as well as being unable to inflate balloon. Were able to drain approx 1100 cc urine however. Urine passed after cath attempt frankly bloody. It was felt that patient would benefit from Urology consult and intervention given the significant amount of retained urine as well as inability to place Edwards. Call placed to [facility] in [place]. Patient accepted by , hospitalist. Plan is to have Urology consult once patient has been transferred to their facility. - Discharge Plan Home Medications: Home Meds Acetaminophen with Codeine [Tylenol with Codeine #3 Tablet] 1 tab PO Q3HR PRN [History] Aspirin [Halfprin] 81 mg PO DAILY 03/14/15 [History] Furosemide [Lasix] 60 mg PO DAILY 03/14/15 [History] Ketotifen [Ketotifen 0.025% Ophth Soln] 2 drop EYEBOTH ASDIRECTED PRN 03/14/15 [ History] Loperamide HCl [Imodium A-D] 2 mg PO ONETIME PRN 03/14/15 [History] Metoprolol Tartrate 50 mg PO BID 03/14/15 [History] Miconazole Nitrate [Anti-Fungal Cream] 1 ml TP ASDIRECTED PRN 03/14/15 [History] Multivitamin [Multi-Vitamin Daily] 1 tab PO DAILY 03/14/15 [History] Naproxen Sodium 220 mg PO BID 03/14/15 [History] Naproxen Sodium 220 mg PO DAILY PRN 03/14/15 [History] Potassium Chloride [Klor-Con M20] 20 meq PO DAILY 03/14/15 [History] Simvastatin [Zocor] 40 mg PO BEDTIME 03/14/15 [History] Triamcinolone Acetonide [Triamcinolone Acetonide 0.5%] 1 ml TOP ASDIRECTED PRN 03/14/15 [History] predniSONE [Prednisone] 5 mg PO DAILY 03/14/15 [History] Albuterol/Ipratropium [DuoNeb 3.0-0.5 MG/3 ML] 3 ml NEB Q4HRRT PRN #90 neb 03/20 [Rx] Acetaminophen [Tylenol Arthritis Pain] 650 mg PO BID 11/27/16 [History] Acetaminophen [Tylenol Extra Strength] 500 mg PO BID PRN 11/27/16 [History] Albuterol/Ipratropium [DuoNeb 3.0-0.5 MG/3 ML] 3 ml NEB BID 11/27/16 [History] Capsaicin 1 applic TOP QID PRN 11/27/16 [History] Dextran 70/Hypromellose [Artificial Tears] 1 drop EYEBOTH ASDIRECTED PRN [History] Gabapentin [Neurontin] 300 mg PO BEDTIME 11/27/16 [History] Hydrocortisone [Hydrocortisone 1% Crm] 1 applic TOP QID PRN 11/27/16 [History] Forms: ED Department Discharge Referrals: Sheets-Yari Bonds MD [Primary Care Provider] - - Discharge Summary/Plan Comment DC Time >30 min.: No - Patient Data Vitals - Most Recent: Last Vital Signs Temp 36.6 C 11/27/16 10:30 Pulse 67 11/27/16 10:30 Resp 16 11/27/16 10:30 BP 129/70 11/27/16 10:32 Pulse Ox 100 11/27/16 10:30 Weight - Most Recent: 83.461 kg I&O - Last 24 hours: Intake & Output 11/26/16 11/27/16 11/27/16 22:59 06:59 14:59 Output Total 1300 Balance -1300 Lab Results - Last 24 hrs: Laboratory Results - last 24 hr 11/27/16 11/27/16 Range/Units 10:57 12:00 Creatine Kinase 55 (26-308) U/L Creatine Kinase Index 3.5 H (0.0-2.5) % CK-MB (CK-2) 1.90 (0.00-3.60) ng/mL Troponin I 0.032 (0.000-0.056) ng/mL Triglycerides 216 H (30-150) mg/dL Cholesterol 146 (100-200) mg/dL LDL Cholesterol, Calc 56 (0-100) mg/dL HDL Cholesterol 47 (40-60) mg/dL Specimen Type Urincath Urine Color Yellow Urine Appearance Clear Urine pH 7.0 (5.0-9.0) Ur Specific [place] 1.015 (1.005-1.030) Urine Protein Negative (NEGATIVE) mg/dL Urine Glucose (UA) Negative (NEGATIVE) mg/dL Urine Ketones Negative (NEGATIVE) mg/dL Urine Occult Blood Trace-intact H (NEGATIVE) Urine Nitrite Negative (NEGATIVE) Urine Bilirubin Negative (NEGATIVE) Urine Urobilinogen 0.2 (0.2-1.0) E.U./dL Ur Leukocyte Esterase Negative (NEGATIVE) Urine RBC 0-5 /HPF Urine WBC 0-5 /HPF Ur Epithelial Cells Occasional /LPF Urine Bacteria Occasional (NONE TO FEW) /HPF Med Orders - Current: Current Medications Acetaminophen (Tylenol) 650 mg PO Q4H PRN PRN Reason: Pain Albuterol (Proventil Neb Soln) 2.5 mg INH Q2H PRN PRN Reason: SHORTNESS OF BREATH Albuterol/Ipratropium (Duoneb 3.0-0.5 Mg/3 Ml) 3 ml NEB Q4HRRT PRN PRN Reason: Dyspnea Albuterol/Ipratropium (Duoneb 3.0-0.5 Mg/3 Ml) 3 ml NEB Q6HRRT [facility] Artificial Tears (Liquitears 1.4% Ophth Soln) 1 ml EYEBOTH ASDIRECTED PRN PRN Reason: Dry Eyes Aspirin (Halfprin) 81 mg PO DAILY [facility] Budesonide (Pulmicort) 0.5 mg NEB BIDRT [facility] Gabapentin (Neurontin) 300 mg PO BEDTIME [facility] Isosorbide Mononitrate (Imdur) 30 mg PO DAILY [facility] Last Admin: 11/27/16 08:15 Dose: 30 mg Labetalol HCl (Normodyne) 100 mg PO Q12HR [facility] Lisinopril (Prinivil) 10 mg PO DAILY [facility] Last Admin: 11/27/16 10:32 Dose: 10 mg Nitroglycerin (Nitrostat) 0.4 mg SL ONETIME STA Stop: 11/28/16 06:42 Last Admin: 11/27/16 06:49 Dose: 0.4 mg Nitroglycerin (Nitrostat) 0.4 mg SL ONETIME STA Stop: 11/28/16 07:03 Last Admin: 11/27/16 07:03 Dose: 0.4 mg Capsaicin [Capsaicin (]) 1 applic TOP QID PRN PRN Reason: Pain Prednisone (Prednisone) 5 mg PO DAILY [facility] Simvastatin (Zocor) 40 mg PO BEDTIME [facility] Sodium Chloride (Saline Flush) 10 ml FLUSH ASDIRECTED PRN PRN Reason: Keep Vein Open Last Admin: 11/27/16 08:20 Dose: 10 ml Sodium Chloride (Saline Flush) 10 ml FLUSH Q12HR [facility] Temazepam (Restoril) 15 mg PO BEDTIME PRN PRN Reason: Insomnia Discontinued Medications Aspirin (Aspirin) 324 mg CHEW ONETIME ONE Stop: 11/27/16 06:36 Last Admin: 11/27/16 06:48 Dose: 324 mg Famotidine (Pepcid) 40 mg IVPUSH ONETIME ONE Stop: 11/27/16 06:36 Last Admin: 11/27/16 06:48 Dose: 40 mg Furosemide (Lasix) 60 mg IVPUSH NOW ONE Stop: 11/27/16 07:03 Last Admin: 11/27/16 07:05 Dose: 60 mg Furosemide (Lasix) 40 mg IVPUSH Q8H [facility] Last Admin: 11/27/16 12:15 Dose: Not Given Iopamidol (Isovue-370 (76%)) 100 ml IVPUSH ONETIME ONE Stop: 11/27/16 09:01 Last Admin: 11/27/16 09:35 Dose: 100 ml Labetalol HCl (Normodyne) 10 mg IVPUSH ONETIME ONE PRN Reason: Protocol Stop: 11/27/16 07:12 Last Admin: 11/27/16 07:14 Dose: 10 mg Labetalol HCl (Normodyne) 10 mg IVPUSH ONETIME ONE PRN Reason: Protocol Stop: 11/27/16 08:00 Last Admin: 11/27/16 08:18 Dose: 10 mg Labetalol HCl (Normodyne) 100 mg PO BID [facility] Metoprolol Tartrate (Lopressor) 2.5 mg IVPUSH ONETIME ONE Stop: 11/27/16 06:36 Last Admin: 11/27/16 06:48 Dose: 2.5 mg Potassium Chloride (Klor-Con M20) 20 meq PO TID [facility] Last Admin: 11/27/16 12:14 Dose: Not Given Sodium Chloride (Saline Flush) 10 ml FLUSH Q12HR PRN PRN Reason: Keep Vein Open Ticagrelor (Brilinta) 180 mg PO ONETIME ONE Stop: 11/27/16 06:36 Last Admin: 11/27/16 06:48 Dose: 180 mg *Q Meaningful Use (DIS) - VTE *Q VTE Criteria *Q: - Stroke *Q Stroke Criteria *Q: - AMI *Q AMI Criteria *Q:
[2016-11-27 14:39] VITALS: BP 96/60
[2016-11-27] MEDS ORDERED: Labetalol 100 MG Tab PO SCH ×2 (18:00→20:00)
[2016-11-27] MEDS ORDERED: Budesonide 0.5 MG/2 ML Neb Susp NEB SCH (20:00)
[2016-11-27] MEDS ORDERED: Gabapentin 300 MG Cap PO SCH (20:00)
[2016-11-27] MEDS ORDERED: Sodium Chloride 0.9% 10 ML Syringe FLUSH SCH (20:00)
[2016-11-27] MEDS ORDERED: Simvastatin 20 MG Tab PO SCH (20:00)
[2016-11-28] MEDS ORDERED: predniSONE 5 MG Tab PO SCH (08:00)
[2016-11-28] MEDS ORDERED: Aspirin 81 MG Tab.EC PO SCH (08:00)
== END 2016-11-27 15:35 | DRG 292 ==
LOC: LL.ED 06:23 → UNDOADMIN 07:48 → LL.MS 07:48 → UNDODISIN 15:35
PROVIDERS: ADMIT Family Medicine; ATTEND Family Medicine
DX: I11.0 Hypertensive heart disease with heart failure (principal); L03.116 Cellulitis of left lower limb; I25.110 Atherosclerotic heart disease of native coronary artery with unstable angina pectoris; I50.9 Heart failure, unspecified; Z51.5 Encounter for palliative care; I44.0 Atrioventricular block, first degree; I49.3 Ventricular premature depolarization; N28.9 Disorder of kidney and ureter, unspecified; J43.1 Panlobular emphysema; Z95.1 Presence of aortocoronary bypass graft; E11.622 Type 2 diabetes mellitus with other skin ulcer; E11.21 Type 2 diabetes mellitus with diabetic nephropathy; E78.5 Hyperlipidemia, unspecified; F41.8 Other specified anxiety disorders; M15.0 Primary generalized (osteo)arthritis; K21.9 Gastro-esophageal reflux disease without esophagitis; R33.9 Retention of urine, unspecified; Z79.82 Long term (current) use of aspirin; Z79.52 Long term (current) use of systemic steroids; Z79.899 Other long term (current) drug therapy; Z87.891 Personal history of nicotine dependence
CPT/HCPCS: 36415; 51798; 71010; 71275; 80053; 80061; 81001; 82550; 82553; 83036; 83605; 83735; 83880; 84443; 84484; 84550; 85025; 85379; 85610; 85730; 86140; 87070; 87077; 87186; 87205; 93005; 93970; 94664; 96374; 96375; 96376; 99285; A9270-GY; J1940; J3490; J7050; Q9967; S0028

== ENCOUNTER 2016-12-18 02:05 | Emergency (ER) | payer MEDICARE, BC ==
[2016-12-18] MEDS ORDERED: Ticagrelor 90 MG Tab PO ONE (02:18)
[2016-12-18] MEDS ORDERED: Famotidine 20 MG/2 ML SDV IVPUSH ONE (02:18)
--- NOTE | 2016-12-18 02:18 | EDM.PDOC ---
ED HPI GENERAL MEDICAL PROBLEM - General Chief Complaint: General Stated Complaint: right shoulder pain, HTN Time Seen by Provider: 12/18/16 02:15 Source of Information: Reports: Patient, [facility] Records (Limited), Old Records ([facility] [place] EMR. No paper hospital chart available.) - History of Present Illness INITIAL COMMENTS - FREE TEXT/NARRATIVE: The patient was brought to the emergency room via transport vehicle from [facility] in [place] for evaluation of hypertension with blood pressure of 227/117 prior to transfer to this facility. The patient has been having some initial left-sided nonspecific shoulder discomfort with subsequent radiation to the right shoulder with symptoms starting at about 23:00 hours this past evening. The patient had not yet fallen asleep. No treatment was given in that facility with no known history of medication noncompliance. The patient denies any chest pain/pressure, heart flutter, dizziness, orthostasis, orthopnea, diaphoresis, paresthesias, recent decreased exercise tolerance, or any other anginal-type symptoms. No recent history of abdominal pain, heartburn , nausea, diarrhea, melena, gross hematochezia, or any food intolerance, including fatty foods, etc.. The patient also denies any recent fever, cough, wheezing, dyspnea, etc.. The patient rated at his initial shoulder discomfort at 2/10. No history of recent headaches, visual changes, diplopia, change in mental status, or other change in neurological status. Onset: Today Onset Date: 12/17/16 Onset Time: 23:00 Duration: Intermittent Location: Reports: Upper Extremity, Left, Upper Extremity, Right. Denies: Head , Face, Neck, Chest, Abdomen, Back, Pelvis, Radiates to Quality: Reports: Ache, Same as Previous Episode Severity: Mild Improves with: Reports: None Worsens with: Reports: None Context: Reports: Other (As above) Associated Symptoms: Denies: Confusion, Chest Pain, Cough, Diaphoresis, Fever/ Chills, Headaches, Loss of Appetite, Malaise, Nausea/Vomiting, Seizure, Shortness of Breath, Syncope, Weakness Right Shoulder Pain Score (Numeric/FACES): 2 - Related Data Allergies Allergy/AdvReac Type Severity Reaction Status Date / Time No Known Allergies Allergy Verified 12/18/16 02:24 Home Meds: Home Meds Acetaminophen with Codeine [Tylenol with Codeine #3 Tablet] 1 tab PO Q3HR PRN [History] Aspirin [Halfprin] 81 mg PO DAILY 03/14/15 [History] Furosemide [Lasix] 60 mg PO DAILY 03/14/15 [History] Ketotifen [Ketotifen 0.025% Ophth Soln] 2 drop EYEBOTH ASDIRECTED PRN 03/14/15 [ History] Loperamide HCl [Imodium A-D] 2 mg PO ASDIRECTED PRN 03/14/15 [History] Metoprolol Tartrate 50 mg PO 03/14/15 [History] Multivitamin [Multi-Vitamin Daily] 1 tab PO DAILY 03/14/15 [History] Naproxen Sodium 220 mg PO DAILY PRN 03/14/15 [History] Potassium Chloride [Klor-Con M20] 20 meq PO DAILY 03/14/15 [History] Simvastatin [Zocor] 40 mg PO BEDTIME 03/14/15 [History] predniSONE [Prednisone] 5 mg PO DAILY 03/14/15 [History] Acetaminophen [Tylenol Arthritis Pain] 650 mg PO 11/27/16 [History] Albuterol/Ipratropium [DuoNeb 3.0-0.5 MG/3 ML] 3 ml NEB 11/27/16 [History] Dextran 70/Hypromellose [Artificial Tears] 1 drop EYEBOTH ASDIRECTED PRN [History] Gabapentin [Neurontin] 300 mg PO BEDTIME 11/27/16 [History] Famotidine [Pepcid] 20 mg PO BEDTIME #30 tablet 12/18/16 [Rx] Isosorbide Mononitrate [Isosorbide Mononitrate ER] 60 mg PO DAILY #30 tab.sr.24h 12/18/16 [Rx] Lisinopril 10 mg PO BEDTIME #10 tablet 12/18/16 [Rx] Phenylephrine HCl [Sudogest PE] 10 mg PO Q4HR PRN MDD 6 12/18/16 [History] Past Medical History HEENT History: Reports: Allergic Rhinitis, Cataract, Hard of Hearing, Impaired Vision, Other (See Below). 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 Denies: Asthma, Intubation, Difficult, PE, Pneumothorax, Pulmonary Fibrosis, Sleep Apnea Gastrointestinal History: Reports: Chronic Constipation, Chronic Diarrhea, Diverticulosis, GERD, GI Bleed, PUD, Other (See Below). Denies: Bowel Obstruction, Celiac Disease, Cholelithiasis, Colon Polyp, Fecal Incontinence, Gastritis, Hepatitis, Inflammatory Bowel Disease, Irritable Bowel Syndrome, Pancreatitis Other Gastrointestinal History: Upper GI bleed secondary to peptic ulcer disease in the 1980s requiring surgery as below, Mild dysphagia Genitourinary History: Reports: BPH, Retention, Urinary, Urinary Incontinence, Other (See Below). Denies: Acute Renal Failure, Chronic Renal Insuffiency, Dialysis, Renal Calculus, STD, UTI, Recurrent Other Genitourinary History: Current Edwards catheter therapy Musculoskeletal History: Reports: Arthritis, Back Pain, Chronic, Neck Pain, Chronic, Osteoarthritis, Osteoporosis, RA, Other (See Below). 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 Denies: Alzheimers Disease, Brain Injury, Cerebral Aneurysms, CVA, Headaches, Chronic, Head Trauma, Migraines, MS, Parkinson's, Seizure, TIA Other Neuro History: Possible head concussion in his 30s Psychiatric History: Reports: Anxiety, Depression. Denies: Abuse, Victim of, ADD, ADHD, Addiction, Alzheimers Disease, Dementia, Psych Hospitalization(s), PTSD, Suicide Attempt, Suicidal Ideation Endocrine/Metabolic History: Reports: Diabetes, Type II, Multinodular Thyroid, Osteoporosis, Other (See Below). Denies: Hyperthyroidism, Hypothyroidism, IDDM Other Endocrine/Metabolic History: AODM currently treated with diet, thyroid nodules with right thyroid nodule by CT scan on 11/27/16 Hematologic History: Reports: Blood Transfusion(s), Other (See Below). Denies: Anemia, B12 Deficiency, Iron Deficiency Other Hematologic History: Blood transfusion of 2 units packed red blood cells in secondary to peptic ulcer disease as above Immunologic History: Reports: None. Denies: AIDS, HIV, SLE Oncologic (Cancer) History: Reports: Prostate, Other (See Below). Denies: Basal Cell Carcinoma, Hodgkin's Lymphoma, Leukemia, Lymphoma, Malignant Melanoma , Metastatic, Non-Hodgkin's Lymphoma, Squamous Cell Carcinoma, Thyroid Other Oncologic History: Prostate cancer with history of cryotherapy in his late 70s Dermatologic History: Reports: Cellulitis, Chronic Cellulitis, Decubitus Ulcer, Other (See Below). Denies: Eczema, Psoriasis, Venous Stasis Dermatitis Other Dermatologic History: Cutaneous Candidiasis, recurrent diabetic ulcers, recurrent cellulitis - Infectious Disease History Infectious Disease History: Reports: Chicken Pox, Measles, MRSA (Right ankle), Mumps. Denies: C-Difficile, Meningitis, Mononucleosis, Pertussis (Whooping Cough), Rheumatic Fever, Rubella, Scarlet Fever, Shingles, VRE - Past Surgical History Head Surgeries/Procedures: Reports: None HEENT Surgical History: Reports: Cataract Surgery, Eye Surgery, Oral Surgery, Other (See Below). Denies: Adenoidectomy, Laser Surgery, LASIK, Myringotomy w Tube(s), Naso-Sinus Surgery, Tonsillectomy Other HEENT Surgeries/Procedures: bilateral cataract surgery in about 2013, multiple teeth extractions with complete upper dentures and partial lowers Cardiovascular Surgical History: Reports: Carotid Endarterectomy, Coronary Artery Bypass, Vascular Surgery, Other (See Below). Denies: AAA Repair, Aneurysm, Cardiac Ablation, Coronary Artery Stent, Pacer, Percutaneous Transluminal Angioplasty, Varicose Other Cardiovascular Surgeries/Procedures: Bilateral carotid endarterectomy in about 2010, four-vessel CABG at age 88, right femoral artery bypass/stent placement in about 2010 Respiratory Surgical History: Reports: None. Denies: Lung Biopsies, Thoracentesis GI Surgical History: Reports: Appendectomy, Colonoscopy, Hernia, Inguinal, Other (See Below). Denies: Cholecystectomy, EGD, Hernia Repair/Other, Polypectomy Other GI Surgeries/Procedures: Right inguinal hernia repair in about 2001, appendectomy at about age 17, possible distant colonoscopy Male Surgical History: Reports: Circumcision, Prostate Biopsy, Other (See Below). Denies: Vasectomy Other Male Surgeries/Procedures: Circumcision as an infant, cryotherapy of prostate cancer as below Endocrine Surgical History: Reports: None. Denies: Thyroid Biopsy Neurological Surgical History: Reports: None. Denies: C-Spine, Discectomy, Laminectomy, Lumbar Spine, Spinal Fusion, Vertebroplasty Musculoskeletal Surgical History: Reports: Joint Replacement, Knee Replacement, Shoulder Replacement, Shoulder Surgery, Other (See Below). Denies: Amputation, Arthroscopic Knee, Arthroscopic Procedure, Carpal Tunnel, Ganglion Cyst, Hip Replacement, ORIF Other Musculoskeletal Surgeries/Procedures:: bilateral total knee arthroplasty with right TKA in about 2011 with left TKA in about 2012, right shoulder replacement in 2013 Oncologic Surgical History: Reports: None Dermatological Surgical History: Reports: None - Past Imaging History Past Imaging History: Reports: Angiography (Heart catheterization at age 88), Carotid US (Last carotid artery Doppler studies on 10/17/14), CAT Scan (CT of the chest on 11/27/16, CT of the abdomen and pelvis on 03/15/15), Swallow Study ( 03/16/15), Ultrasound (Last ultrasound of thyroid gland on 10/30/16 with previous evaluations on 08/23/15 and 10/13/13), Venous Doppler (11/27/16) Social & Family History - Family History HEENT: Reports: None. Denies: Glaucoma, Macular Degeneration, Retinal Detachment Cardiac: Reports: CAD, Heart Failure, Other (See Below). Denies: Afib, Aneurysm , Arrhythmia, Blood Clots/VTE/DVT, High Cholesterol, Hypertension, ND, PVD/COD, Syncope Other Cardiac Family History: Father with fatal CHF at age 75, brother with history of 5 vessel CABG at age 75, brother with CABG 2 at an unknown age Respiratory: Reports: None. Denies: Asthma, COPD, PE, Pneumothorax, Sleep Apnea GI: Reports: Cholelithiasis, Other (See Below). Denies: Celiac Disease, GERD, GI bleed, Inflammatory Bowel Disease, Irritable Bowel Syndrome, PUD Other GI Family History: Mother with cholelithiasis : Reports: None. Denies: Dialysis, Renal Calculus, Renal Disease/ Insufficiency OBGYN: Reports: None. Denies: Endometriosis, Recurrent Spontaneous Musculoskeletal: Reports: None. Denies: Gout, RA, SLE Neurological: Reports: CVA, Parkinson's, Other (See Below). Denies: Alzheimers Disease, Cerebral Aneurysms, Dementia, Migraines, MS, Seizure, TIA Other Neurological Family History: Mother with Parkinson's disease, father with CVA in his 70s Psychiatric: Reports: None. Denies: Abuse, Victim of, ADD, ADHD, Anxiety, Depression, Psych Hospitalization(s), PTSD, Suicide Attempt Endocrine/Metabolic: Reports: None. Denies: Diabetes, Type I, Diabetes, type II , Hypothyroidism, IDDM Hematologic: Reports: None. Denies: Anemia Immunologic: Reports: None. Denies: AIDS, HIV, SLE Dermatologic: Reports: None. Denies: Eczema, Psoriasis Oncologic: Reports: None. Denies: Colon, Hodgkin's Lymphoma, Leukemia, Lymphoma - Tobacco Use Smoking Status *Q: Former Smoker Years of Tobacco use: 37 Packs/Tins Daily: 1 (Smoked between ages 20 and 57 with additional cigar use) Used Tobacco, but Quit: Yes Month Tobacco Last Used: 1984 Second Hand Smoke Exposure: No - Caffeine Use Caffeine Use: Reports: Coffee (One cup per day). Denies: Energy Drinks, Soda, Tea - Alcohol Use Alcohol Use History: No Days Per Week of Alcohol Use: 0 (No previous DWIs, problems with alcohol abuse, etc.) Number of Drinks Per Day: 0 (No alcohol use since age 89) Total Drinks Per Week: 0 Alcohol Use in Last Twelve Months: No - Recreational Drug Use Recreational Drug Use: No Drug Use in Last 12 Months: No Recreational Drug Type: Denies: Amphetamines (Speed), Cocaine, Heroin, Inhalants (Glues, Solvents, Aerosols), LSD (Acid), Marijuana/Hashish, Methamphetamine, Morphine - Living Situation & Occupation Living situation: Reports: Extended Care Facility ([facility] in [place], basic side admitted 09/10/14) Occupation: Retired ([employer] worker, 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 ED EXAM, GENERAL - Physical Exam Exam: See Below Exam Limited By: No Limitations General Appearance: Alert, WD/WN, No Apparent Distress Eye Exam: Bilateral Eye: EOMI, Normal Fundi, Normal Inspection (No nystagmus), Periorbital Changes Ears: Normal External Exam, Hearing Loss (Moderate bilateral presbycusis despite bilateral hearing aide therapy) Nose: Normal Inspection, Normal Mucosa, No Blood Throat/Mouth: Normal Lips, Normal Gums, Normal Oropharynx, Normal Voice, No Airway Compromise. No: Normal Teeth (Complete dentures uppers and partial dentures lowers), Dysphagia, Perioral Cyanosis Head: Atraumatic, Normocephalic. No: Facial Swelling, Facial Tenderness, Sinus Tenderness Neck: Supple, Carotid Bruit (1/6 bilateral carotid bruits). No: Non-Tender, Full Range of Motion, Lymphadenopathy (L), Lymphadenopathy (R), Thyromegaly Respiratory/Chest: No Respiratory Distress, No Accessory Muscle Use, Chest Non- Tender, Rales (Mild bilateral basilar rales). No: Pleural Rub, Retractions Cardiovascular: Normal Peripheral Pulses, Regular Rate, Rhythm, No Edema, No Gallop, No JVD, No Murmur, No Rub. No: Gallop/S3, Gallop/S4, Friction Rub Peripheral Pulses: 2+: Radial (L), Radial (R), Dorsalis Pedis (L), Dorsalis Pedis (R) GI/Abdominal: Normal Bowel Sounds, Soft, Non-Tender, No Organomegaly, No Distention, No Abnormal Bruit, No Mass, Pelvis Stable, Other (Obese, multiple areas of ecchymosis in abdominal region likely secondary to subcutaneous injections during recent hospitalization in November in [facility]) . No: Guarding (Male) Exam: Deferred Rectal (Males) Exam: Deferred Back Exam: Normal Inspection, Full Range of Motion. No: CVA Tenderness (L), CVA Tenderness (R), Muscle Spasm Extremities: Normal Inspection, Normal Range of Motion, Non-Tender, No Pedal Edema, Normal Capillary Refill, Other (Right Edwards leg bag) Neurological: Alert, Oriented, CN II-XII Intact, Normal Cognition, Normal Gait, Normal Reflexes (Negative Babinski's), No Motor/Sensory Deficits Psychiatric: Normal Affect, Normal Mood Skin Exam: Warm, Dry, Intact, Normal Color, No Rash, Ecchymosis (Abdominal as above). No: Diaphoretic, Wound/Incision Lymphatic: No Adenopathy EKG INTERPRETATION EKG Date: 12/18/16 Time: 02:30 Rhythm: NSR (With new PAC) Rate (Beats/Min): 80 [place]: Normal (Left axis) P-Wave: Present (Mild diffuse biphasic P waves with extreme poor R-wave progression in the anterior leads) QRS: Normal (QRS interval of 0.[address] changes) ST-T: Normal QT: Normal IA/PQ Interval: 0.24 seconds with mild progression of previous first degree AV block with previous IA interval 0.22 seconds Comparison: Change From Previous EKG (As above with last EKG on 11/27/16) EKG Interpretation Comments: 1. No acute ischemic changes 2. New PAC 3. First-degree AV block Course - Vital Signs Last Recorded V/S: Last Vital Signs Temp 36.3 C 12/18/16 02:15 Pulse 76 12/18/16 03:37 Resp 23 H 12/18/16 03:37 BP 154/76 H 12/18/16 03:37 Pulse Ox 100 12/18/16 03:37 Vital Signs - 24 hr 12/18/16 12/18/16 12/18/16 02:15 02:21 02:33 Temperature [ 36.3 C Temporal] Pulse, 79 79 79 Peripheral [ Right Pulse Oximetry] Respiratory 16 14 18 Rate Blood Pressure Blood Pressure 203/91 H 175/89 H [Left Upper Arm ] Blood Pressure 220/97 H [Right Upper Arm] O2 Sat by Pulse 95 100 100 Oximetry 12/18/16 12/18/16 12/18/16 02:36 02:46 02:50 Temperature [ Temporal] Pulse, 76 Peripheral [ Right Pulse Oximetry] Respiratory 14 Rate Blood Pressure 202/100 H Blood Pressure 200/90 H 202/100 H [Left Upper Arm ] Blood Pressure [Right Upper Arm] O2 Sat by Pulse 100 Oximetry 12/18/16 12/18/16 12/18/16 02:51 02:56 03:08 Temperature [ Temporal] Pulse, 81 82 81 Peripheral [ Right Pulse Oximetry] Respiratory 21 H 20 19 Rate Blood Pressure Blood Pressure 199/96 H 194/105 H 152/111 H [Left Upper Arm ] Blood Pressure [Right Upper Arm] O2 Sat by Pulse 100 100 99 Oximetry 12/18/16 12/18/16 12/18/16 03:12 03:22 03:28 Temperature [ Temporal] Pulse, 75 78 Peripheral [ Right Pulse Oximetry] Respiratory 20 19 Rate Blood Pressure 142/76 H Blood Pressure 176/93 H 142/76 H [Left Upper Arm ] Blood Pressure [Right Upper Arm] O2 Sat by Pulse 100 100 Oximetry 12/18/16 03:37 Temperature [ Temporal] Pulse, 76 Peripheral [ Right Pulse Oximetry] Respiratory 23 H Rate Blood Pressure Blood Pressure [Left Upper Arm ] Blood Pressure 154/76 H [Right Upper Arm] O2 Sat by Pulse 100 Oximetry - Orders/Labs/Meds Orders: Active Orders 24 hr Category Date Time Status Cardiac Monitoring [RC] . DIRECTED Care 12/18/16 02:19 Active EKG Documentation Completion [RC] ASDIRECTED Care 12/18/16 02:19 Active Oxygen Therapy, ED [RC] CONTINUOUS Care 12/18/16 02:26 Active Peripheral IV Care [RC] . DIRECTED Care 12/18/16 02:19 Active Pulse Oximetry [RC] CONTINUOUS Care 12/18/16 02:19 Active Up With Assistance [RC] PFP Care 12/18/16 02:19 Active Vital Signs [RC] PFP Care 12/18/16 02:19 Active Chest 1V Frontal [CR] Stat Exams 12/18/16 02:19 Taken Obtain Past Medical Record [OM.PC] Urgent Oth 12/18/16 02:19 Active Peripheral IV Insertion Adult [OM.PC] Stat Oth 12/18/16 02:19 Ordered Resuscitation Status Stat Resus Stat 12/18/16 02:18 Ordered Labs: Laboratory Tests 12/18/16 12/18/16 12/18/16 Range/Units 02:10 02:10 02:10 WBC 7.6 (4.0-10.2) K/uL RBC 4.56 (4.33-5.41) M/uL Hgb 14.0 (13.1-16.8) g/dL Hct 42.3 (39.0-49.0) % MCV 92.8 (84.0-98.0) fL MCH 30.7 (28.2-33.3) pg MCHC 33.1 (31.7-36.0) g/dL RDW 12.2 (11.2-14.1) % Plt Count 257 (150-350) K/uL Neut % (Auto) 63.5 (45.0-80.0) % Lymph % (Auto) 24.5 (10.0-50.0) % [place] % (Auto) 8.4 (2.0-14.0) % Eos % (Auto) 2.7 (0.0-5.0) % Baso % (Auto) 0.9 (0.0-2.0) % Neut # (Auto) 4.85 (1.40-7.00) K/uL Lymph # (Auto) 1.87 (0.50-3.50) K/uL [place] # (Auto) 0.64 (0.00-1.00) K/uL Eos # (Auto) 0.21 (0.00-0.50) K/uL Baso # (Auto) 0.07 (0.00-0.20) K/uL PT 10.6 (9.8-11.7) SEC INR 1.0 APTT 25.6 (23.5-30.0) SEC D-Dimer, Quantitative 851 H (0-400) ng/mL Sodium (136-145) mmol/L Potassium (3.5-5.1) mmol/L Chloride (98-107) mmol/L Carbon Dioxide (21.0-32.0) mmol/L BUN (7-18) mg/dL Creatinine (0.51-1.17) mg/dL Est Cr Clr Drug Dosing mL/min Estimated GFR (MDRD) mL/min Glucose (74-106) mg/dL Lactic Acid (0.4-2.0) mmol/L Uric Acid (2.6-7.2) mg/dL Calcium (8.5-10.1) mg/dL Magnesium (1.8-2.4) mg/dL Total Bilirubin (0.2-1.0) mg/dL AST (15-37) U/L ALT (12-78) U/L Alkaline Phosphatase (46-116) IU/L Creatine Kinase (26-308) U/L Creatine Kinase Index (0.0-2.5) % CK-MB (CK-2) (0.00-3.60) ng/mL Troponin I (0.000-0.056) ng/mL NT-Pro-B Natriuret Pep (0-125) pg/mL Total Protein (6.4-8.2) g/dL Albumin (3.4-5.0) g/dL TSH, Ultra Sensitive (0.358-3.740) mIU/mL 12/18/16 12/18/16 Range/Units 02:10 02:10 WBC (4.0-10.2) K/uL RBC (4.33-5.41) M/uL Hgb (13.1-16.8) g/dL Hct (39.0-49.0) % MCV (84.0-98.0) fL MCH (28.2-33.3) pg MCHC (31.7-36.0) g/dL RDW (11.2-14.1) % Plt Count (150-350) K/uL Neut % (Auto) (45.0-80.0) % Lymph % (Auto) (10.0-50.0) % [place] % (Auto) (2.0-14.0) % Eos % (Auto) (0.0-5.0) % Baso % (Auto) (0.0-2.0) % Neut # (Auto) (1.40-7.00) K/uL Lymph # (Auto) (0.50-3.50) K/uL [place] # (Auto) (0.00-1.00) K/uL Eos # (Auto) (0.00-0.50) K/uL Baso # (Auto) (0.00-0.20) K/uL PT (9.8-11.7) SEC INR APTT (23.5-30.0) SEC D-Dimer, Quantitative (0-400) ng/mL Sodium 135 L (136-145) mmol/L Potassium 3.9 (3.5-5.1) mmol/L Chloride 98 (98-107) mmol/L Carbon Dioxide 29.5 (21.0-32.0) mmol/L BUN 24 H (7-18) mg/dL Creatinine 1.11 (0.51-1.17) mg/dL Est Cr Clr Drug Dosing 38.03 mL/min Estimated GFR (MDRD) > 60 mL/min Glucose 130 H (74-106) mg/dL Lactic Acid 0.7 (0.4-2.0) mmol/L Uric Acid 6.7 (2.6-7.2) mg/dL Calcium 9.3 (8.5-10.1) mg/dL Magnesium 2.0 (1.8-2.4) mg/dL Total Bilirubin 0.4 (0.2-1.0) mg/dL AST 39 H (15-37) U/L ALT 32 (12-78) U/L Alkaline Phosphatase 59 (46-116) IU/L Creatine Kinase 45 (26-308) U/L Creatine Kinase Index 3.6 H (0.0-2.5) % CK-MB (CK-2) 1.60 (0.00-3.60) ng/mL Troponin I 0.008 (0.000-0.056) ng/mL NT-Pro-B Natriuret Pep 922 H (0-125) pg/mL Total Protein 7.5 (6.4-8.2) g/dL Albumin 3.6 (3.4-5.0) g/dL TSH, Ultra Sensitive 0.957 (0.358-3.740) mIU/mL Meds: Medications Discontinued Medications Generic Name Dose Route Start Last Admin Trade Name Freq PRN Reason Stop Dose Admin Famotidine 40 mg 12/18/16 02:18 12/18/16 02:26 Pepcid IVPUSH 12/18/16 02:19 40 mg ONETIME ONE Administration Furosemide 60 mg 12/18/16 02:59 12/18/16 03:02 Lasix IVPUSH 12/18/16 03:00 60 mg NOW ONE Administration Labetalol HCl 10 mg 12/18/16 02:23 12/18/16 02:26 Normodyne IVPUSH 12/18/16 02:24 10 mg ONETIME ONE Administration Protocol Labetalol HCl 10 mg 12/18/16 02:57 12/18/16 03:02 Normodyne IVPUSH 12/18/16 02:58 10 mg ONETIME ONE Administration Protocol Lisinopril 10 mg 12/18/16 03:24 12/18/16 03:28 Prinivil PO 12/18/16 03:25 10 mg ONETIME ONE Administration Nitroglycerin 0.4 mg 12/18/16 02:47 12/18/16 02:50 Nitrostat SL 12/19/16 02:48 0.4 mg ONETIME STA Administration Potassium Chloride 20 meq 12/18/16 03:26 12/18/16 03:28 Klor-Con M20 PO 12/18/16 03:27 20 meq ONETIME ONE Administration Sodium Chloride 10 ml 12/18/16 02:18 12/18/16 03:02 Saline Flush FLUSH 10 ml ASDIRECTED PRN Administration Keep Vein Open Ticagrelor 180 mg 12/18/16 02:18 12/18/16 02:31 Brilinta PO 12/18/16 02:19 Not Given ONETIME ONE - Radiology Interpretation Free Text/Narrative:: supervisor parking 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 Pulmonary infiltrates not noted however difficult to assess secondary to his CHF. Mildly elevated right hemidiaphragm. Status post median sternotomy with multiple surgical clips noted Departure - Departure Time of Disposition: 04:00 Disposition: Home, Self-Care 01 Clinical Impression: D-dimer, elevated, Peptic reflux disease, PAC (premature atrial contraction) CHF (congestive heart failure) Qualifiers: Congestive heart failure type: unspecified congestive heart failure type Congestive heart failure chronicity: unspecified congestive heart failure chronicity Qualified Code(s): I50.9 - Heart failure, unspecified Hypertension Qualifiers: Hypertension type: essential hypertension Qualified Code(s): I10 - Essential ( primary) hypertension COPD (chronic obstructive pulmonary disease) Qualifiers: COPD type: emphysema Emphysema type: panlobular Qualified Code(s): J43.1 - Panlobular emphysema Coronary artery disease Qualifiers: Coronary Disease-Associated Artery/Lesion type: bypass graft, autologous vein Associated angina: with unstable angina Qualified Code(s): I25.710 - 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 Follow up with your regular provider in 7 days for reevaluation with recommended repeat chest x-ray, CBC, comprehensive metabolic panel, BNP, troponin I, CK, and CK-MB 2. Vital signs including blood pressure and pulses on an every shift basis for the next 48 hours with primary care provider to be updated at that time concerning patient's symptoms, recent medication changes, including increased Imdur, new Pepcid, and new lisinopril, and vital signs as above. 3. Daily weights with results to be given to primary care provider at 48 hour update as above 4. Recommend manual blood pressure checks secondary to patient's history of peripheral vascular disease - Problem List & Annotations (1) Hypertension SNOMED Code(s): 13677506 Code(s): I10 - ESSENTIAL (PRIMARY) HYPERTENSION Status: Acute Priority: High Annotation/Comment:: Borderline hypertensive crisis on admission somewhat refractory to therapy as above. He was somewhat refractory to labetalol therapy with additional sublingual nitroglycerin tablet given for blood pressure control. No chest pain or anginal type symptoms. Additional IV Lasix and oral lisinopril given as below. Continue medication adjustments as needed with close follow-up by his regular provider. Patient is already on Lopressor, however seemed to respond better to labetalol during recent hospitalization Qualifiers: Hypertension type: essential hypertension Qualified Code(s): I10 - Essential (primary) hypertension (2) CHF (congestive heart failure) SNOMED Code(s): 42323040 Code(s): I50.9 - HEART FAILURE, UNSPECIFIED Status: Acute Priority: High Onset Date: 11/27/16 Annotation/Comment:: Moderate CHF by chest x-ray with persistent BNP elevation and mild secondary change in his troponin I. IV Lasix given in the emergency room with additional oral Lasix scheduled at the retirement later today. Patient was also given potassium chloride in our facility with potassium chloride at the retirement later today. Secondary to his CHF and hypertension additional lisinopril therapy was initiated in the emergency room. Close follow-up by regular provider as per discharge instructions Qualifiers: Congestive heart failure type: unspecified congestive heart failure type Congestive heart failure chronicity: unspecified congestive heart failure chronicity Qualified Code(s): I50.9 - Heart failure, unspecified (3) D-dimer, elevated SNOMED Code(s): 931269488 Code(s): R79.89 - OTHER SPECIFIED ABNORMAL FINDINGS OF BLOOD CHEMISTRY Status: Acute Priority: High Onset Date: 11/27/16 Annotation/Comment:: Chronic d-dimer elevation secondary to graft occlusion as above with CTA of the chest and venous Doppler studies conducted on 11/27/16. There is no clinical evidence of acute DVT or PE (4) PAC (premature atrial contraction) SNOMED Code(s): 677605050 Code(s): I49.1 - ATRIAL PREMATURE DEPOLARIZATION Status: Acute Priority: Medium Onset Date: 12/18/16 Annotation/Comment:: Newly diagnosed today with previously diagnosed first-degree AV block and PVCs in our facility on 11/27/16. Patient is nonsymptomatic (5) COPD (chronic obstructive pulmonary disease) SNOMED Code(s): 86865232 Code(s): J44.9 - CHRONIC OBSTRUCTIVE PULMONARY DISEASE, UNSPECIFIED Status : Chronic Priority: Medium Annotation/Comment:: COPD by chest x-ray with no recent fever or bronchitic type symptoms Qualifiers: COPD type: emphysema Emphysema type: panlobular Qualified Code(s): J43.1 - Panlobular emphysema (6) Coronary artery disease SNOMED Code(s): 44502457 Code(s): I25.10 - ATHSCL HEART DISEASE OF [place] CORONARY ARTERY W/O ANG PCTRS Status: Chronic Priority: High Annotation/Comment:: Note status post CABG as above. No EKG changes or true anginal type symptoms. Artifactually elevated CK index secondary to low CK baseline. Imdur increased for blood pressure control as per discharge instructions Qualifiers: Coronary Disease-Associated Artery/Lesion type: bypass graft, autologous vein Associated angina: with unstable angina Qualified Code(s): I25.710 - 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 (7) Peptic reflux disease SNOMED Code(s): 68513963 Code(s): K21.9 - GASTRO-ESOPHAGEAL REFLUX DISEASE WITHOUT ESOPHAGITIS Status: Chronic Priority: Medium Annotation/Comment:: Stable by history with immediate resolution of patient's symptoms with high-dose IV Pepcid given in the emergency room. Initiate oral Pepcid therapy at that time, which is also beneficial secondary to his chronic steroid therapy (8) PVCs (premature ventricular contractions) SNOMED Code(s): 13678699 Code(s): I49.3 - VENTRICULAR PREMATURE DEPOLARIZATION Status: Chronic Priority: High Onset Date: 11/27/16 Annotation/Comment:: As above. - Problem List Review Problem List Initiated/Reviewed/Updated: Yes - My Orders Last 24 Hours: My Active Orders 12/18/16 02:18 Resuscitation Status Stat 12/18/16 02:19 Cardiac Monitoring [RC] . DIRECTED EKG Documentation Completion [RC] ASDIRECTED Peripheral IV Care [RC] . DIRECTED Pulse Oximetry [RC] CONTINUOUS Up With Assistance [RC] PFP Vital Signs [RC] PFP Chest 1V Frontal [CR] Stat Obtain Past Medical Record [OM.PC] Urgent Peripheral IV Insertion Adult [OM.PC] Stat 12/18/16 02:26 Oxygen Therapy, ED [RC] CONTINUOUS - Assessment/Plan Last 24 Hours: My Active Orders 12/18/16 02:18 Resuscitation Status Stat 12/18/16 02:19 Cardiac Monitoring [RC] . DIRECTED EKG Documentation Completion [RC] ASDIRECTED Peripheral IV Care [RC] . DIRECTED Pulse Oximetry [RC] CONTINUOUS Up With Assistance [RC] PFP Vital Signs [RC] PFP Chest 1V Frontal [CR] Stat Obtain Past Medical Record [OM.PC] Urgent Peripheral IV Insertion Adult [OM.PC] Stat 12/18/16 02:26 Oxygen Therapy, ED [RC] CONTINUOUS Assessment:: As above Plan: As above. Extensive precautions were given to the patient, who is in agreement with the treatment plan. See Patient Instructions for further treatment and plan.
[2016-12-18] MEDS ORDERED: Labetalol 20 MG/4 ML Syringe IVPUSH ONE ×2 (02:23→02:57)
[2016-12-18] MEDS: Sodium Chloride 0.9% 10 ML Syringe FLUSH PRN ×2 (02:27→03:02)
[2016-12-18] MEDS ORDERED: Nitroglycerin 0.4 MG Tab.SL SL STA (02:47)
[2016-12-18 02:49] LABS: CHLORIDE,CL 98 mmol/L (98-107); SODIUM,NA 135 mmol/L (136-145)
[2016-12-18] MEDS ORDERED: Furosemide 40 MG/4 ML VIAL IVPUSH ONE (02:59)
[2016-12-18] MEDS ORDERED: Lisinopril 10 MG Tab PO ONE (03:24)
[2016-12-18] MEDS ORDERED: Potassium Chloride 20 MEQ Tab.ER PO ONE (03:26)
[2016-12-18 03:41] VITALS: BP 154/76
== END 2016-12-18 04:00 | disposition home or self-care (01) ==
LOC: LL.ED 02:05
DX: I11.0 Hypertensive heart disease with heart failure (principal); I50.9 Heart failure, unspecified; I49.1 Atrial premature depolarization; K21.9 Gastro-esophageal reflux disease without esophagitis; R79.1 Abnormal coagulation profile; J43.1 Panlobular emphysema; I25.710 Atherosclerosis of autologous vein coronary artery bypass graft(s) with unstable angina pectoris; E78.00 Pure hypercholesterolemia, unspecified; I52 Other heart disorders in diseases classified elsewhere; M19.90 Unspecified osteoarthritis, unspecified site; E11.42 Type 2 diabetes mellitus with diabetic polyneuropathy; M81.0 Age-related osteoporosis without current pathological fracture; Z85.46 Personal history of malignant neoplasm of prostate; Z98.49 Cataract extraction status, unspecified eye; Z95.1 Presence of aortocoronary bypass graft; Z90.49 Acquired absence of other specified parts of digestive tract; Z98.890 Other specified postprocedural states; Z96.651 Presence of right artificial knee joint; Z96.611 Presence of right artificial shoulder joint; Z87.891 Personal history of nicotine dependence; Z79.82 Long term (current) use of aspirin; Z79.899 Other long term (current) drug therapy
CPT/HCPCS: 36415; 71010; 80053; 82550; 82553; 83605; 83735; 83880; 84443; 84484; 84550; 85025; 85379; 85610; 85730; 93005; 96374; 96375; 96376; 99284; A9270; J1940; J7050; S0028

== ENCOUNTER 2017-05-26 11:29 | Inpatient (IN) | payer MEDICARE, BC ==
--- NOTE | 2017-05-26 13:39 | PCM.HP ---
H&P History of Present Illness - General Date of Service: 05/26/17 Admit Problem/Dx: Admission Diagnosis/Problem Admission Diagnosis/Problem Pneumonia Source of Information: Patient, Penitent[facility] Records History Limitations: Reports: No Limitations - History of Present Illness Onset of Symptoms: Reports: Gradual Duration of Symptoms: Reports: Day(s): Location: Reports: Chest, Abdomen, Generalized (weakness and fatigue) Improves with: Reports: Rest Worsens with: Reports: Movement Associated Symptoms: Reports: Cough, Malaise, Shortness of Breath, Weakness - Related Data Allergies/Adverse Reactions: Allergies Allergy/AdvReac Type Severity Reaction Status Date / Time No Known Allergies Allergy Verified 12/18/16 02:24 Home Medications: Home Meds Acetaminophen with Codeine [Tylenol with Codeine #3 Tablet] 1 tab PO Q3HR PRN [History] Aspirin [Halfprin] 81 mg PO DAILY 03/14/15 [History] Furosemide [Lasix] 60 mg PO DAILY 03/14/15 [History] Ketotifen [Ketotifen 0.025% Ophth Soln] 2 drop EYEBOTH ASDIRECTED PRN 03/14/15 [ History] Loperamide HCl [Imodium A-D] 2 mg PO ASDIRECTED PRN 03/14/15 [History] Metoprolol Tartrate 50 mg PO 03/14/15 [History] Multivitamin [Multi-Vitamin Daily] 1 tab PO DAILY 03/14/15 [History] Naproxen Sodium 220 mg PO DAILY PRN 03/14/15 [History] Potassium Chloride [Klor-Con M20] 20 meq PO DAILY 03/14/15 [History] Simvastatin [Zocor] 40 mg PO BEDTIME 03/14/15 [History] predniSONE [Prednisone] 5 mg PO DAILY 03/14/15 [History] Acetaminophen [Tylenol Arthritis Pain] 650 mg PO 11/27/16 [History] Albuterol/Ipratropium [DuoNeb 3.0-0.5 MG/3 ML] 3 ml NEB 11/27/16 [History] Dextran 70/Hypromellose [Artificial Tears] 1 drop EYEBOTH ASDIRECTED PRN [History] Gabapentin [Neurontin] 300 mg PO BEDTIME 11/27/16 [History] Famotidine [Pepcid] 20 mg PO BEDTIME #30 tablet 12/18/16 [Rx] Isosorbide Mononitrate [Isosorbide Mononitrate ER] 60 mg PO DAILY #30 tab.sr.24h 12/18/16 [Rx] Lisinopril 10 mg PO BEDTIME #10 tablet 12/18/16 [Rx] Phenylephrine HCl [Sudogest PE] 10 mg PO Q4HR PRN MDD 6 12/18/16 [History] Past Medical History HEENT History: Reports: Allergic Rhinitis, Cataract, Hard of Hearing, Impaired Vision, Other (See Below). Denies: Glaucoma, Macular Degeneration Other HEENT History: Dry eye syndrome, Chronic oral pain, bilateral presbycusis with bilateral hearing aide therapy, the patient wears glasses Cardiovascular History: Reports: Arrhythmia, Bypass, CAD, Cardiomyopathy, Heart Failure, Heart Murmur, High Cholesterol, Hypertension, VA, Pulmonary Hypertension, PVD, Other (See Below). 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 Denies: Asthma, Intubation, Difficult, PE, Pneumothorax, Pulmonary Fibrosis, Sleep Apnea Gastrointestinal History: Reports: Chronic Constipation, Chronic Diarrhea, Diverticulosis, GERD, GI Bleed, PUD, Other (See Below). Denies: Bowel Obstruction, Celiac Disease, Cholelithiasis, Colon Polyp, Fecal Incontinence, Gastritis, Hepatitis, Inflammatory Bowel Disease, Irritable Bowel Syndrome, Pancreatitis Other Gastrointestinal History: Upper GI bleed secondary to peptic ulcer disease in the 1980s requiring surgery as below, Mild dysphagia Genitourinary History: Reports: BPH, Retention, Urinary, Urinary Incontinence, Other (See Below). Denies: Acute Renal Failure, Chronic Renal Insuffiency, Dialysis, Renal Calculus, STD, UTI, Recurrent Other Genitourinary History: Current Edwards catheter therapy Musculoskeletal History: Reports: Arthritis, Back Pain, Chronic, Neck Pain, Chronic, Osteoarthritis, Osteoporosis, RA, Other (See Below). 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 Denies: Alzheimers Disease, Brain Injury, Cerebral Aneurysms, CVA, Headaches, Chronic, Head Trauma, Migraines, MS, Parkinson's, Seizure, TIA Other Neuro History: Possible head concussion in his 30s Psychiatric History: Reports: Anxiety, Depression. Denies: Abuse, Victim of, ADD, ADHD, Addiction, Alzheimers Disease, Dementia, Psych Hospitalization(s), PTSD, Suicide Attempt, Suicidal Ideation Endocrine/Metabolic History: Reports: Diabetes, Type II, Multinodular Thyroid, Osteoporosis, Other (See Below). Denies: Hyperthyroidism, Hypothyroidism, IDDM Other Endocrine/Metabolic History: AODM currently treated with diet, thyroid nodules with right thyroid nodule by CT scan on 11/27/16 Hematologic History: Reports: Blood Transfusion(s), Other (See Below). Denies: Anemia, B12 Deficiency, Iron Deficiency Other Hematologic History: Blood transfusion of 2 units packed red blood cells in secondary to peptic ulcer disease as above Immunologic History: Reports: None. Denies: AIDS, HIV, SLE Oncologic (Cancer) History: Reports: Prostate, Other (See Below). Denies: Basal Cell Carcinoma, Hodgkin's Lymphoma, Leukemia, Lymphoma, Malignant Melanoma , Metastatic, Non-Hodgkin's Lymphoma, Squamous Cell Carcinoma, Thyroid Other Oncologic History: Prostate cancer with history of cryotherapy in his late 70s Dermatologic History: Reports: Cellulitis, Chronic Cellulitis, Decubitus Ulcer, Other (See Below). Denies: Eczema, Psoriasis, Venous Stasis Dermatitis Other Dermatologic History: Cutaneous Candidiasis, recurrent diabetic ulcers, recurrent cellulitis - Infectious Disease History Infectious Disease History: Reports: Chicken Pox, Measles, MRSA (Right ankle), Mumps. Denies: C-Difficile, Meningitis, Mononucleosis, Pertussis (Whooping Cough), Rheumatic Fever, Rubella, Scarlet Fever, Shingles, VRE - Past Surgical History Head Surgeries/Procedures: Reports: None HEENT Surgical History: Reports: Cataract Surgery, Eye Surgery, Oral Surgery, Other (See Below). Denies: Adenoidectomy, Laser Surgery, LASIK, Myringotomy w Tube(s), Naso-Sinus Surgery, Tonsillectomy Other HEENT Surgeries/Procedures: bilateral cataract surgery in about 2013, multiple teeth extractions with complete upper dentures and partial lowers Cardiovascular Surgical History: Reports: Carotid Endarterectomy, Coronary Artery Bypass, Vascular Surgery, Other (See Below). Denies: AAA Repair, Aneurysm, Cardiac Ablation, Coronary Artery Stent, Pacer, Percutaneous Transluminal Angioplasty, Varicose Other Cardiovascular Surgeries/Procedures: Bilateral carotid endarterectomy in about 2010, four-vessel CABG at age 88, right femoral artery bypass/stent placement in about 2010 Respiratory Surgical History: Reports: None. Denies: Lung Biopsies, Thoracentesis GI Surgical History: Reports: Appendectomy, Colonoscopy, Hernia, Inguinal, Other (See Below). Denies: Cholecystectomy, EGD, Hernia Repair/Other, Polypectomy Other GI Surgeries/Procedures: Right inguinal hernia repair in about 2001, appendectomy at about age 17, possible distant colonoscopy Male Surgical History: Reports: Circumcision, Prostate Biopsy, Other (See Below). Denies: Vasectomy Other Male Surgeries/Procedures: Circumcision as an infant, cryotherapy of prostate cancer as below Endocrine Surgical History: Reports: None. Denies: Thyroid Biopsy Neurological Surgical History: Reports: None. Denies: C-Spine, Discectomy, Laminectomy, Lumbar Spine, Spinal Fusion, Vertebroplasty Musculoskeletal Surgical History: Reports: Joint Replacement, Knee Replacement, Shoulder Replacement, Shoulder Surgery, Other (See Below). Denies: Amputation, Arthroscopic Knee, Arthroscopic Procedure, Carpal Tunnel, Ganglion Cyst, Hip Replacement, ORIF Other Musculoskeletal Surgeries/Procedures:: bilateral total knee arthroplasty with right TKA in about 2011 with left TKA in about 2012, right shoulder replacement in 2013 Oncologic Surgical History: Reports: None Dermatological Surgical History: Reports: None - Past Imaging History Past Imaging History: Reports: Angiography (Heart catheterization at age 88), Carotid US (Last carotid artery Doppler studies on 10/17/14), CAT Scan (CT of the chest on 11/27/16, CT of the abdomen and pelvis on 03/15/15), Swallow Study ( 03/16/15), Ultrasound (Last ultrasound of thyroid gland on 10/30/16 with previous evaluations on 08/23/15 and 10/13/13), Venous Doppler (11/27/16) Social & Family History - Family History HEENT: Reports: None. Denies: Glaucoma, Macular Degeneration, Retinal Detachment Cardiac: Reports: CAD, Heart Failure, Other (See Below). Denies: Afib, Aneurysm , Arrhythmia, Blood Clots/VTE/DVT, High Cholesterol, Hypertension, VA, PVD/COD, Syncope Other Cardiac Family History: Father with fatal CHF at age 75, brother with history of 5 vessel CABG at age 75, brother with CABG 2 at an unknown age Respiratory: Reports: None. Denies: Asthma, COPD, PE, Pneumothorax, Sleep Apnea GI: Reports: Cholelithiasis, Other (See Below). Denies: Celiac Disease, GERD, GI bleed, Inflammatory Bowel Disease, Irritable Bowel Syndrome, PUD Other GI Family History: Mother with cholelithiasis : Reports: None. Denies: Dialysis, Renal Calculus, Renal Disease/ Insufficiency OBGYN: Reports: None. Denies: Endometriosis, Recurrent Spontaneous Musculoskeletal: Reports: None. Denies: Gout, RA, SLE Neurological: Reports: CVA, Parkinson's, Other (See Below). Denies: Alzheimers Disease, Cerebral Aneurysms, Dementia, Migraines, MS, Seizure, TIA Other Neurological Family History: Mother with Parkinson's disease, father with CVA in his 70s Psychiatric: Reports: None. Denies: Abuse, Victim of, ADD, ADHD, Anxiety, Depression, Psych Hospitalization(s), PTSD, Suicide Attempt Endocrine/Metabolic: Reports: None. Denies: Diabetes, Type I, Diabetes, type II , Hypothyroidism, IDDM Hematologic: Reports: None. Denies: Anemia Immunologic: Reports: None. Denies: AIDS, HIV, SLE Dermatologic: Reports: None. Denies: Eczema, Psoriasis Oncologic: Reports: None. Denies: Colon, Hodgkin's Lymphoma, Leukemia, Lymphoma - Tobacco Use Smoking Status *Q: Former Smoker Years of Tobacco use: 37 Packs/Tins Daily: 1 (Smoked between ages 20 and 57 with additional cigar use) Used Tobacco, but Quit: Yes Month Tobacco Last Used: 1984 Second Hand Smoke Exposure: No - Caffeine Use Caffeine Use: Reports: Coffee (One cup per day). 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) H&P Review of Systems - Review of Systems: Review Of Systems: See Below General: Reports: Malaise, Weakness, Fatigue, Decreased Appetite HEENT: Reports: Headaches (yesterday, not now) Pulmonary: Reports: Shortness of Breath, Cough Cardiovascular: Reports: Dyspnea on Exertion Gastrointestinal: Reports: Decreased Appetite, Nausea, Vomiting (emesis times 2 three days ago, no emesis since but some nausea) Genitourinary: Reports: Other (chronic indwelling catheter, worries about this) Musculoskeletal: Reports: No Symptoms Skin: Reports: No Symptoms Psychiatric: Reports: Anxiety (worried about health) Neurological: Reports: No Symptoms Hematologic/Lymphatic: Reports: No Symptoms Immunologic: Reports: No Symptoms Exam - Exam Exam: See Below - Vital Signs Weight: 158 lb - Exam Quality Assessment: Urinary Catheter General: Alert, Oriented, 4 HEENT: Mucosa Moist & [place], TMs Clear, Glasses Neck: Supple, Trachea Midline Lungs: Decreased Breath Sounds Cardiovascular: Regular Rate, Regular Rhythm GI/Abdominal Exam: Normal Bowel Sounds, Soft, Non-Tender (Male) Exam: Other (indwelling urinary catheter) Rectal (Males) Exam: Deferred Back Exam: Normal Inspection Extremities: Pedal Edema Skin: Warm, Dry, Intact Neuro Extensive - Mental Status: Alert, Oriented x3 Psychiatric: Alert, Anxious *Q Meaningful Use (ADM) - VTE *Q VTE Criteria *Q: - Stroke *Q Stroke Criteria *Q: - AMI *Q AMI Criteria *Q: - Problem List (1) Pneumonia SNOMED Code(s): 211011816 ICD Code: J18.9 - PNEUMONIA, UNSPECIFIED ORGANISM Status: Acute Priority : High Current Visit: No Qualifiers: Pneumonia type: due to unspecified organism Laterality: unspecified laterality Problem List Initiated/Reviewed/Updated: Yes Orders Last 24hrs: Active Orders 24 hr Category Date Time Status Patient Status [ADT] Routine ADT 05/26/17 12:57 Active Antiembolic Devices [RC] PER UNIT ROUTINE Care 05/26/17 13:02 Active Blood Glucose Check, Bedside [RC] BIDMEALS Care 05/26/17 12:57 Active Height and Weight [RC] DAILY Care 05/26/17 12:57 Active Intake and Output [RC] QSHIFT Care 05/26/17 12:59 Active May Shower [RC] ASDIRECTED Care 05/26/17 12:57 Active Oxygen Therapy [RC] PRN Care 05/26/17 12:57 Active Pulse Oximetry [RC] PRN Care 05/26/17 13:00 Active Up With Assistance [RC] ASDIRECTED Care 05/26/17 12:57 Active Urinary Catheter Assessment [RC] ASDIRECTED Care 05/26/17 12:57 Active VTE/DVT Education [RC] PER UNIT ROUTINE Care 05/26/17 12:57 Active Vital Signs [RC] Q4H Care 05/26/17 12:57 Active Consult to Case Management [CONS] Routine Cons 05/26/17 12:57 Active OT Evaluation and Treatment [CONS] Routine Cons 05/26/17 12:57 Active PT Evaluation and Treatment [CONS] Routine Cons 05/26/17 12:57 Active [place] [employer] Diet [DIET] Diet 05/26/17 Lunch Active Mechanical Soft Diet [DIET] Diet 05/26/17 Dinner Active Chest 2V [CR] Routine Exams 05/26/17 11:45 Taken C-REACTIVE PROTEIN [CHEM] AM Lab 05/27/17 05:11 Ordered C-REACTIVE PROTEIN [CHEM] AM Lab 05/28/17 05:11 Ordered C-REACTIVE PROTEIN [CHEM] AM Lab 05/29/17 05:11 Ordered CBC WITH AUTO DIFF [HEME] AM Lab 05/27/17 05:11 Ordered CBC WITH AUTO DIFF [HEME] AM Lab 05/28/17 05:11 Ordered CBC WITH AUTO DIFF [HEME] AM Lab 05/29/17 05:11 Ordered COMPREHENSIVE METABOLIC PN,CMP [CHEM] AM Lab 05/27/17 05:11 Ordered COMPREHENSIVE METABOLIC PN,CMP [CHEM] AM Lab 05/28/17 05:11 Ordered COMPREHENSIVE METABOLIC PN,CMP [CHEM] AM Lab 05/29/17 05:11 Ordered CULTURE BLOOD [BC] Stat Lab 05/26/17 13:18 Received CULTURE BLOOD [BC] Stat Lab 05/26/17 13:23 Received PRO B-TYPE NATRIUR PEPT,BNPPRO [CHEM] DAILY Lab 05/27/17 05:11 Ordered PRO B-TYPE NATRIUR PEPT,BNPPRO [CHEM] DAILY Lab 05/28/17 05:11 Ordered PRO B-TYPE NATRIUR PEPT,BNPPRO [CHEM] DAILY Lab 05/29/17 05:11 Ordered Azithromycin [Zithromax] 500 mg Med 05/26/17 13:15 Ordered Sodium Chloride 0.9% [Normal Saline] 250 ml IV Q24H Sodium Chloride 0.9% [Saline Flush] Med 05/26/17 12:57 Ordered 10 ml FLUSH ASDIRECTED PRN cefTAZidime [Fortaz] Med 05/26/17 16:00 Ordered 1 gm IVPUSH Q8HR methylPREDNISolone Sod Succ [Solu-MEDROL] Med 05/26/17 13:15 Ordered 20 mg IVPUSH Q12H metroNIDAZOLE/Normal Saline [Flagyl 500 MG in NS 100 ML Med 05/26/17 13:15 Ordered ] 500 mg Premix Bag 1 bag IV Q8H Antiembolic Hose [OM.PC] Per Unit Routine Oth 05/26/17 13:01 Ordered Blood Culture x2 Reflex Set [OM.PC] Stat Oth 05/26/17 12:57 Ordered Saline Lock Insert [OM.PC] Routine Oth 05/26/17 12:57 Ordered Resuscitation Status Routine Resus Stat 05/26/17 12:57 Ordered Medication Orders Ceftazidime (Fortaz) 1 gm IVPUSH Q8HR SINA Azithromycin 500 mg/ Sodium (Chloride) 250 mls @ 250 mls/hr IV Q24H SINA Metronidazole 500 mg/ Premix 100 mls @ 100 mls/hr IV Q8H SINA Methylprednisolone Sodium Succinate (Solu-Medrol) 20 mg IVPUSH Q12H SINA Sodium Chloride (Saline Flush) 10 ml FLUSH ASDIRECTED PRN PRN Reason: Keep Vein Open Assessment/Plan Comment:: 05-26-17 Andrez Schmidt PA-C Admitting for IP therapy, from the [facility] Basic Unit. O2 sats 84-93% in the clinic, and respirations up to 28 breaths/min. Increased dyspnea with ambulation. Denied any CP. Says just so tired, weak, fatigued, no appetite, some nausea. Not able to take last doses of po antibiotic d/t nausea. Blood sugars have been reading High over the weekend. Patient very thirsty. Some headache last night. Consulted Dr. Burden at the time of admit.
[2017-05-26] MEDS: metroNIDAZOLE/Normal Saline 500 MG in Premix Bag 1 BAG IV SCH ×2 (14:10→21:03)
[2017-05-26] MEDS: methylPREDNISolone Sodium Succinate 40 MG/1 ML SDV IVPUSH SCH (14:11)
[2017-05-26] MEDS: cefTAZidime 1 GM Vial IVPUSH SCH ×2 (14:11→21:02)
[2017-05-26] MEDS: Sodium Chloride 0.9% 10 ML Syringe FLUSH PRN ×3 (14:11→21:05)
[2017-05-26] MEDS: Azithromycin 500 MG in Sodium Chloride 0.9% 250 ML IV SCH (15:17)
[2017-05-26] MEDS ORDERED: Polyvinyl Alcohol 1.4% Ophth Soln 15 ML Bottle EYEBOTH PRN (15:17)
[2017-05-26] MEDS ORDERED: Albuterol/Ipratropium 3.0-0.5 MG/3 ML Neb Soln NEB PRN (15:17)
[2017-05-26] MEDS ORDERED: LORazepam 0.5 MG Tab PO PRN (15:17)
[2017-05-26] MEDS: Albuterol/Ipratropium 3.0-0.5 MG/3 ML Neb Soln NEB SCH ×2 (17:01→20:44)
[2017-05-26] MEDS ORDERED: Insulin Regular, Human 100 Units/ML 3 ML Vial SUBCUT SCH (19:30)
[2017-05-26] MEDS: Acetaminophen 650 MG Tab.ER PO SCH (20:44)
[2017-05-26] MEDS: Lisinopril 5 MG Tab PO SCH (20:45)
[2017-05-26] MEDS: Gabapentin 300 MG Cap PO SCH (20:45)
[2017-05-26] MEDS: Tamsulosin 0.4 MG Cap.ER PO SCH (20:47)
[2017-05-26] MEDS: Finasteride 5 MG Tab PO SCH (20:47)
[2017-05-26] MEDS: Famotidine 20 MG Tab PO SCH (20:47)
[2017-05-26] MEDS: Metoprolol Tartrate 50 MG Tab PO SCH (20:48)
[2017-05-26] MEDS ORDERED: Menthol/Methyl Salicylate 85 GM Tube TOP PRN (21:39)
[2017-05-27] MEDS ORDERED: Insulin Regular, Human 100 Units/ML 3 ML Vial SUBCUT ONE (00:01)
[2017-05-27] MEDS: methylPREDNISolone Sodium Succinate 40 MG/1 ML SDV IVPUSH SCH ×3 (02:15→20:24)
[2017-05-27] MEDS: Sodium Chloride 0.9% 10 ML Syringe FLUSH PRN ×5 (02:15→21:59)
[2017-05-27] MEDS: cefTAZidime 1 GM Vial IVPUSH SCH ×3 (06:00→21:59)
[2017-05-27] MEDS: metroNIDAZOLE/Normal Saline 500 MG in Premix Bag 1 BAG IV SCH ×3 (06:00→21:58)
[2017-05-27 07:35] LABS: CHLORIDE,CL 99 mmol/L (98-107); SODIUM,NA 136 mmol/L (136-145)
[2017-05-27] MEDS ORDERED: Aspirin 81 MG Tab.EC PO SCH (08:00)
[2017-05-27] MEDS: Acetaminophen 650 MG Tab.ER PO SCH ×2 (08:03→20:24)
[2017-05-27] MEDS: Metoprolol Tartrate 50 MG Tab PO SCH ×2 (08:04→20:25)
[2017-05-27] MEDS: Isosorbide Mononitrate 60 MG Tab.ER PO SCH (08:04)
[2017-05-27] MEDS: Furosemide 40 MG/4 ML VIAL IVPUSH SCH (08:05)
[2017-05-27] MEDS: Albuterol/Ipratropium 3.0-0.5 MG/3 ML Neb Soln NEB SCH ×4 (08:05→20:24)
[2017-05-27] MEDS: Azithromycin 500 MG in Sodium Chloride 0.9% 250 ML IV SCH (15:27)
--- NOTE | 2017-05-27 16:57 | PCM.PN ---
- General Info Date of Service: 05/27/17 Admission Dx/Problem (Free Text): Admission Diagnosis/Problem Admission Diagnosis/Problem Pneumonia Functional Status: Reports: Pain Controlled - Review of Systems General: Reports: Weakness HEENT: Reports: No Symptoms Pulmonary: Reports: Shortness of Breath, Cough Cardiovascular: Reports: No Symptoms Gastrointestinal: Reports: No Symptoms Genitourinary: Reports: No Symptoms Musculoskeletal: Reports: No Symptoms Skin: Reports: No Symptoms Neurological: Reports: No Symptoms Psychiatric: Reports: No Symptoms - Patient Data Vitals - Most Recent: Last Vital Signs Temp 97.5 F 05/27/17 16:00 Pulse 88 05/27/17 16:00 Resp 18 05/27/17 16:00 BP 127/69 05/27/17 16:00 Pulse Ox 99 05/27/17 16:00 Weight - Most Recent: 160 lb 0.008 oz I&O - Last 24 Hours: Intake & Output 05/27/17 05/27/17 05/27/17 06:59 14:59 22:59 Intake Total 100 700 Output Total 550 500 Balance -450 200 Lab Results Last 24 Hours: Laboratory Results - last 24 hr 05/26/17 05/26/17 05/26/17 Range/Units 18:27 18:30 18:50 WBC (4.0-10.2) K/uL RBC (4.33-5.41) M/uL Hgb (13.1-16.8) g/dL Hct (39.0-49.0) % MCV (84.0-98.0) fL MCH (28.2-33.3) pg MCHC (31.7-36.0) g/dL RDW (11.2-14.1) % Plt Count (150-350) K/uL Neut % (Auto) (45.0-80.0) % Lymph % (Auto) (10.0-50.0) % [place] % (Auto) (2.0-14.0) % Eos % (Auto) (0.0-5.0) % Baso % (Auto) (0.0-2.0) % Neut # (Auto) (1.40-7.00) K/uL Lymph # (Auto) (0.50-3.50) K/uL [place] # (Auto) (0.00-1.00) K/uL Eos # (Auto) (0.00-0.50) K/uL Baso # (Auto) (0.00-0.20) K/uL Sodium (136-145) mmol/L Potassium (3.5-5.1) mmol/L Chloride (98-107) mmol/L Carbon Dioxide (21.0-32.0) mmol/L BUN (7-18) mg/dL Creatinine (0.51-1.17) mg/dL Est Cr Clr Drug Dosing mL/min Estimated GFR (MDRD) mL/min Glucose 555 H* (74-106) mg/dL POC Glucose > 500 H* > 500 H* (65-110) mg/dl Calcium (8.5-10.1) mg/dL Total Bilirubin (0.2-1.0) mg/dL AST (15-37) U/L ALT (12-78) U/L Alkaline Phosphatase (46-116) IU/L C-Reactive Protein (<=0.9) mg/dL NT-Pro-B Natriuret Pep (0-125) pg/mL Total Protein (6.4-8.2) g/dL Albumin (3.4-5.0) g/dL 05/26/17 05/27/17 05/27/17 Range/Units 23:54 06:50 06:50 WBC 10.2 (4.0-10.2) K/uL RBC 4.28 L (4.33-5.41) M/uL Hgb 12.4 L D (13.1-16.8) g/dL Hct 37.3 L (39.0-49.0) % MCV 87.1 D (84.0-98.0) fL MCH 29.0 (28.2-33.3) pg MCHC 33.2 (31.7-36.0) g/dL RDW 13.2 (11.2-14.1) % Plt Count 254 (150-350) K/uL Neut % (Auto) 90.9 H (45.0-80.0) % Lymph % (Auto) 5.5 L (10.0-50.0) % [place] % (Auto) 3.5 (2.0-14.0) % Eos % (Auto) 0.0 (0.0-5.0) % Baso % (Auto) 0.1 (0.0-2.0) % Neut # (Auto) 9.29 H (1.40-7.00) K/uL Lymph # (Auto) 0.56 (0.50-3.50) K/uL [place] # (Auto) 0.36 (0.00-1.00) K/uL Eos # (Auto) 0.00 (0.00-0.50) K/uL Baso # (Auto) 0.01 (0.00-0.20) K/uL Sodium 136 (136-145) mmol/L Potassium 4.3 (3.5-5.1) mmol/L Chloride 99 (98-107) mmol/L Carbon Dioxide 27.7 (21.0-32.0) mmol/L BUN 30 H (7-18) mg/dL Creatinine 0.92 (0.51-1.17) mg/dL Est Cr Clr Drug Dosing 49.12 mL/min Estimated GFR (MDRD) > 60 mL/min Glucose 254 H* (74-106) mg/dL POC Glucose 384 H* (65-110) mg/dl Calcium 9.5 (8.5-10.1) mg/dL Total Bilirubin 0.4 (0.2-1.0) mg/dL AST 22 (15-37) U/L ALT 24 (12-78) U/L Alkaline Phosphatase 69 (46-116) IU/L C-Reactive Protein 8.0 H (<=0.9) mg/dL NT-Pro-B Natriuret Pep 1542 H (0-125) pg/mL Total Protein 7.2 (6.4-8.2) g/dL Albumin 2.6 L (3.4-5.0) g/dL 05/27/17 05/27/17 Range/Units 07:04 16:26 WBC (4.0-10.2) K/uL RBC (4.33-5.41) M/uL Hgb (13.1-16.8) g/dL Hct (39.0-49.0) % MCV (84.0-98.0) fL MCH (28.2-33.3) pg MCHC (31.7-36.0) g/dL RDW (11.2-14.1) % Plt Count (150-350) K/uL Neut % (Auto) (45.0-80.0) % Lymph % (Auto) (10.0-50.0) % [place] % (Auto) (2.0-14.0) % Eos % (Auto) (0.0-5.0) % Baso % (Auto) (0.0-2.0) % Neut # (Auto) (1.40-7.00) K/uL Lymph # (Auto) (0.50-3.50) K/uL [place] # (Auto) (0.00-1.00) K/uL Eos # (Auto) (0.00-0.50) K/uL Baso # (Auto) (0.00-0.20) K/uL Sodium (136-145) mmol/L Potassium (3.5-5.1) mmol/L Chloride (98-107) mmol/L Carbon Dioxide (21.0-32.0) mmol/L BUN (7-18) mg/dL Creatinine (0.51-1.17) mg/dL Est Cr Clr Drug Dosing mL/min Estimated GFR (MDRD) mL/min Glucose (74-106) mg/dL POC Glucose 238 H > 500 H* (65-110) mg/dl Calcium (8.5-10.1) mg/dL Total Bilirubin (0.2-1.0) mg/dL AST (15-37) U/L ALT (12-78) U/L Alkaline Phosphatase (46-116) IU/L C-Reactive Protein (<=0.9) mg/dL NT-Pro-B Natriuret Pep (0-125) pg/mL Total Protein (6.4-8.2) g/dL Albumin (3.4-5.0) g/dL [place] Results Last 24 Hours: Microbiology 05/26/17 13:23 Aerobic Blood Culture - Preliminary Blood - Venous - Lab Draw NO GROWTH AFTER 1 DAY Anaerobic Blood Culture - Preliminary NO GROWTH AFTER 1 DAY 05/26/17 13:18 Aerobic Blood Culture - Preliminary Blood - Venous NO GROWTH AFTER 1 DAY Anaerobic Blood Culture - Preliminary NO GROWTH AFTER 1 DAY Med Orders - Current: Current Medications Acetaminophen (Tylenol Arthritis Pain) 650 mg PO BID@0800,2000 [facility] Last Admin: 05/27/17 08:03 Dose: 650 mg Albuterol/Ipratropium (Duoneb 3.0-0.5 Mg/3 Ml) 3 ml NEB ASDIRECTED PRN PRN Reason: sob Albuterol/Ipratropium (Duoneb 3.0-0.5 Mg/3 Ml) 3 ml NEB QID [facility] Last Admin: 05/27/17 15:27 Dose: 3 ml Artificial Tears (Liquitears 1.4% Ophth Soln) 1 ml EYEBOTH ASDIRECTED PRN PRN Reason: Dry Eyes Benzonatate (Tessalon Perles) 200 mg PO BID [facility] Ceftazidime (Fortaz) 1 gm IVPUSH Q8H [facility] Last Admin: 05/27/17 13:47 Dose: 1 gm Famotidine (Pepcid) 20 mg PO BEDTIME [facility] Last Admin: 05/26/17 20:47 Dose: 20 mg Finasteride (Proscar) 5 mg PO BEDTIME [facility] Last Admin: 05/26/17 20:47 Dose: 5 mg Furosemide (Lasix) 80 mg IVPUSH DAILY [facility] Last Admin: 05/27/17 08:05 Dose: 80 mg Gabapentin (Neurontin) 300 mg PO BEDTIME [facility] Last Admin: 05/26/17 20:45 Dose: 300 mg Guaifenesin/Dextromethorphan (Mucinex Dm Er 600-30 Mg) 1 tab PO BID [facility] Azithromycin 500 mg/ Sodium (Chloride) 250 mls @ 250 mls/hr IV Q24H [facility] Last Admin: 05/27/17 15:27 Dose: 250 mls/hr Metronidazole 500 mg/ Premix 100 mls @ 100 mls/hr IV Q8H [facility] Last Admin: 05/27/17 13:47 Dose: 100 mls/hr Insulin Aspart (Novolog) 20 unit SUBCUT ONETIME ONE PRN Reason: Protocol Stop: 05/27/17 17:01 Insulin Human NPH (Humulin N) 20 unit SUBCUT Q12HR [facility] Isosorbide Mononitrate (Imdur) 60 mg PO DAILY [facility] Last Admin: 05/27/17 08:04 Dose: 60 mg Lisinopril (Prinivil) 2.5 mg PO BEDTIME [facility] Last Admin: 05/26/17 20:45 Dose: 2.5 mg Lorazepam (Ativan) 0.5 mg PO BID PRN PRN Reason: Anxiety Methyl Salicylate (Icy Hot Cream) 0 gm TOP ASDIRECTED PRN PRN Reason: Muscle aches Last Admin: 05/26/17 21:45 Dose: 1 applic Methylprednisolone Sodium Succinate (Solu-Medrol) 20 mg IVPUSH Q12HR [facility] Metoprolol Tartrate (Lopressor) 50 mg PO BID@ [facility] Last Admin: 05/27/17 08:04 Dose: 50 mg Sodium Chloride (Saline Flush) 10 ml FLUSH ASDIRECTED PRN PRN Reason: Keep Vein Open Last Admin: 05/27/17 13:48 Dose: 10 ml Tamsulosin HCl (Flomax) 0.8 mg PO DAILY@1999 [facility] Last Admin: 05/26/17 20:47 Dose: 0.8 mg Discontinued Medications Aspirin (Halfprin) 81 mg PO DAILY [facility] Last Admin: 05/27/17 08:04 Dose: 81 mg Insulin Human Regular (Humulin R) 10 unit SUBCUT BIDAC [facility] Stop: 05/26/17 23:59 Last Admin: 05/26/17 20:57 Dose: 10 units Insulin Human Regular (Humulin R) 10 unit SUBCUT ONETIME ONE PRN Reason: Protocol Stop: 05/27/17 00:02 Last Admin: 05/27/17 00:44 Dose: 10 units Methylprednisolone Sodium Succinate (Solu-Medrol) 20 mg IVPUSH Q12H [facility] Last Admin: 05/27/17 13:46 Dose: 20 mg - Exam Quality Assessment: Supplemental Oxygen General: Alert, Cooperative, Mild Distress HEENT: Mucous Membr. Moist/[place] Neck: Trachea Midline, No JVD Lungs: Normal Respiratory Effort, Decreased Breath Sounds, Rhonchi, Other ( congested cough) Cardiovascular: Regular Rate, Regular Rhythm GI/Abdominal Exam: Soft, Non-Tender, No Distention (Male) Exam: Deferred Back Exam: Normal Inspection Extremities: Non-Tender Skin: Warm, Dry, Intact Neurological: No New Focal Deficit Psy/Mental Status: Alert, Normal Affect, Normal Mood - Problem List & Annotations (1) Pneumonia SNOMED Code(s): 432582718 Code(s): J18.9 - PNEUMONIA, UNSPECIFIED ORGANISM Status: Acute Priority: High Current Visit: No Qualifiers: Pneumonia type: due to unspecified organism Laterality: unspecified laterality (2) Renal insufficiency SNOMED Code(s): 327357598 Code(s): N28.9 - DISORDER OF KIDNEY AND URETER, UNSPECIFIED Status: Acute Priority: High Current Visit: No Onset Date: 11/27/16 Annotation/Comment :: As above (3) Silent aspiration SNOMED Code(s): 155425897 Code(s): T17.900A - UNSP FB IN RESP TRACT, PART UNSP CAUSING ASPHYX, INIT Status: Acute Priority: High Current Visit: No Onset Date: 03/16/15 Annotation/Comment:: Underwent video swallow with SUPERVISING NURSE today (4) COPD (chronic obstructive pulmonary disease) SNOMED Code(s): 27514584 Code(s): J44.9 - CHRONIC OBSTRUCTIVE PULMONARY DISEASE, UNSPECIFIED Status : Chronic Priority: Medium Current Visit: No Qualifiers: COPD type: emphysema Emphysema type: panlobular Qualified Code(s): J43.1 - Panlobular emphysema Annotation/Comment:: COPD by chest x-ray with no recent fever or bronchitic type symptoms (5) Coronary artery disease SNOMED Code(s): 27498302 Code(s): I25.10 - ATHSCL HEART DISEASE OF [place] CORONARY ARTERY W/O ANG PCTRS Status: Chronic Priority: High Current Visit: No Qualifiers: Coronary Disease-Associated Artery/Lesion type: bypass graft, autologous vein Associated angina: with unstable angina Qualified Code(s): I25.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 No EKG changes or true anginal type symptoms. Artifactually elevated CK index secondary to low CK baseline. 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 IV Lasix therapy with caution. Lisinopril as above. Glycosylated hemoglobin later today (7) Hyperlipidemia SNOMED Code(s): 15124699 Code(s): E78.5 - HYPERLIPIDEMIA, UNSPECIFIED Status: Chronic Priority: Medium Current Visit: No Qualifiers: Hyperlipidemia type: unspecified Qualified Code(s): E78.5 - Hyperlipidemia , unspecified Annotation/Comment:: Lipid panel later today. Currently under therapy (8) Mixed anxiety depressive disorder SNOMED Code(s): 780196845 Code(s): F41.8 - OTHER SPECIFIED ANXIETY DISORDERS Status: Chronic Priority: Medium Current Visit: No Annotation/Comment:: Stable by history (9) Need for comfort care SNOMED Code(s): 129964956 Code(s): NMK5636 - Status: Chronic Priority: Medium Current Visit: No Annotation/Comment:: As above with comfort care verified with the patient today (10) Osteoarthritis SNOMED Code(s): 866344227 Code(s): M19.90 - UNSPECIFIED OSTEOARTHRITIS, UNSPECIFIED SITE Status: Chronic Priority: Medium Current Visit: No Qualifiers: Osteoarthritis location: multiple joints Osteoarthritis type: primary Qualified Code(s): M15.0 - Primary generalized (osteo)arthritis Annotation/Comment:: Stable by history (11) PVCs (premature ventricular contractions) SNOMED Code(s): 14568027 Code(s): I49.3 - VENTRICULAR PREMATURE DEPOLARIZATION Status: Chronic Priority: High Current Visit: No Onset Date: 11/27/16 Annotation/Comment: : As above. (12) Peptic reflux disease SNOMED Code(s): 91606950 Code(s): K21.9 - GASTRO-ESOPHAGEAL REFLUX DISEASE WITHOUT ESOPHAGITIS Status: Chronic Priority: Medium Current Visit: No Annotation/Comment:: Stable by history with immediate resolution of patient's symptoms with high- dose IV Pepcid given in the emergency room. Initiate oral Pepcid therapy at that time, which is also beneficial secondary to his chronic steroid therapy (13) Prostate neoplasm SNOMED Code(s): 880411143 Code(s): D49.5 - NEOPLASM OF UNSP BEHAVIOR OF OTHER GENITOURIN * DO NOT USE * Status: Chronic Priority: Medium Current Visit: No - Problem List Review Problem List Initiated/Reviewed/Updated: Yes - My Orders Last 24 Hours: My Active Orders 05/26/17 21:39 Menthol/Methyl Salicylate [Icy Hot Cream] 0 gm TOP ASDIRECTED PRN 05/27/17 17:00 Insulin Aspart [NovoLOG] 20 unit SUBCUT ONETIME ONE 05/27/17 18:00 Benzonatate [Tessalon Perles] 200 mg PO BID Dextromethorphan/guaiFENesin [Mucinex DM ER 600-30 MG] 1 tab PO BID 05/27/17 20:00 Nph, Human Insulin Isophane [HumuLIN N] 20 unit SUBCUT Q12HR methylPREDNISolone Sod Succ [Solu-MEDROL] 20 mg IVPUSH Q12HR - Plan Plan:: 05-26-17 Andrez Schmidt PA-C Admitting for IP therapy, from the [facility] Basic [facility]. O2 sats 84-93% in the clinic, and respirations up to 28 breaths/min. Increased dyspnea with ambulation. Denied any CP. Says just so tired, weak, fatigued, no appetite, some nausea. Not able to take last doses of po antibiotic d/t nausea. Blood sugars have been reading High over the weekend. Patient very thirsty. Some headache last night. Consulted Dr. Burden at the time of admit. 05/27/17 Jenise Bonds MD Still with congested cough. Continue IV antibiotics. Blood sugar quite high. Insulin ordered.
[2017-05-27] MEDS ORDERED: Insulin Aspart 100 Units/ML 3 ML Pen SUBCUT ONE (17:00)
[2017-05-27] MEDS: Dextromethorphan/guaiFENesin 600-30 MG Tab.ER PO SCH (18:06)
[2017-05-27] MEDS: Benzonatate 100 MG Cap PO SCH (18:06)
[2017-05-27] MEDS ORDERED: Insulin Isophane NPH, Human 100 Units/ML 3 ML Pen SUBCUT SCH (20:00)
[2017-05-27] MEDS: Finasteride 5 MG Tab PO SCH (20:24)
[2017-05-27] MEDS: Famotidine 20 MG Tab PO SCH (20:24)
[2017-05-27] MEDS: Gabapentin 300 MG Cap PO SCH (20:25)
[2017-05-27] MEDS: Lisinopril 5 MG Tab PO SCH (20:26)
[2017-05-27] MEDS: Tamsulosin 0.4 MG Cap.ER PO SCH (20:26)
[2017-05-27] MEDS ORDERED: Insulin Regular, Human 100 Units/ML 3 ML Vial IV ONE (21:10)
[2017-05-27] MEDS: Insulin Isophane NPH, Human 100 Units/ML 3 ML Pen SUBCUT SCH (21:58)
--- NOTE | 2017-05-28 04:47 | PCM.SN ---
- Free Text/Narrative Note: Patient is still having problems with significant hyperglycemia, including blood sugars greater than 500 yesterday, which were verified by venous blood draws. Patient was given one 10 mg IV dose of human regular insulin with increase of his previous insulin therapy yesterday evening. Accu-Chek one hour after IV insulin was 227 with Accu-Chek of 283 at 3 AM this morning. Note initiation of NovoLog sliding scale later this morning with change of his previous BID sliding scale to 4 times a day regimen. Continue to observe his blood sugars closely secondary to his current infection and IV Solu-Medrol therapy. Phosphorus, lactic acid, and blood ketone levels also ordered for the a.m. in addition to previously ordered blood work. No clinical evidence of ketoacidosis at this time, however.
[2017-05-28] MEDS: cefTAZidime 1 GM Vial IVPUSH SCH ×3 (05:17→21:02)
[2017-05-28] MEDS: metroNIDAZOLE/Normal Saline 500 MG in Premix Bag 1 BAG IV SCH ×3 (05:17→21:02)
[2017-05-28] MEDS: Sodium Chloride 0.9% 10 ML Syringe FLUSH PRN ×7 (05:18→21:03)
[2017-05-28 07:36] LABS: CHLORIDE,CL 96 mmol/L (98-107); SODIUM,NA 133 mmol/L (136-145)
[2017-05-28] MEDS: Insulin Aspart 100 Units/ML 3 ML Pen SUBCUT SCH ×4 (07:57→21:16)
[2017-05-28] MEDS: Furosemide 40 MG/4 ML VIAL IVPUSH SCH (07:59)
[2017-05-28] MEDS: methylPREDNISolone Sodium Succinate 40 MG/1 ML SDV IVPUSH SCH ×2 (07:59→19:21)
[2017-05-28] MEDS: Benzonatate 100 MG Cap PO SCH ×2 (08:00→17:31)
[2017-05-28] MEDS: Acetaminophen 650 MG Tab.ER PO SCH ×2 (08:01→19:24)
[2017-05-28] MEDS: Dextromethorphan/guaiFENesin 600-30 MG Tab.ER PO SCH ×2 (08:01→17:30)
[2017-05-28] MEDS: Albuterol/Ipratropium 3.0-0.5 MG/3 ML Neb Soln NEB SCH ×4 (08:01→19:22)
[2017-05-28] MEDS: Insulin Isophane NPH, Human 100 Units/ML 3 ML Pen SUBCUT SCH (08:02)
[2017-05-28] MEDS: Metoprolol Tartrate 50 MG Tab PO SCH ×2 (08:04→19:22)
[2017-05-28] MEDS: Isosorbide Mononitrate 60 MG Tab.ER PO SCH (08:04)
[2017-05-28] MEDS: Azithromycin 500 MG in Sodium Chloride 0.9% 250 ML IV SCH (16:18)
[2017-05-28] MEDS: Tamsulosin 0.4 MG Cap.ER PO SCH (19:21)
[2017-05-28] MEDS: Lisinopril 5 MG Tab PO SCH (19:22)
[2017-05-28] MEDS: Famotidine 20 MG Tab PO SCH (19:22)
[2017-05-28] MEDS: Gabapentin 300 MG Cap PO SCH (19:24)
[2017-05-28] MEDS: Finasteride 5 MG Tab PO SCH (19:24)
[2017-05-28] MEDS ORDERED: Insulin Regular, Human 100 Units/ML 3 ML Vial IV ONE (19:36)
--- NOTE | 2017-05-28 19:46 | PCM.PN ---
- General Info Date of Service: 05/28/17 Admission Dx/Problem (Free Text): Admission Diagnosis/Problem Admission Diagnosis/Problem Pneumonia Functional Status: Reports: Other (still coughing) - Review of Systems General: Reports: No Symptoms HEENT: Reports: No Symptoms Pulmonary: Reports: Cough Cardiovascular: Reports: No Symptoms Gastrointestinal: Reports: No Symptoms Genitourinary: Reports: No Symptoms Musculoskeletal: Reports: No Symptoms Skin: Reports: No Symptoms Neurological: Reports: No Symptoms Psychiatric: Reports: No Symptoms - Patient Data Vitals - Most Recent: Last Vital Signs Temp 97.5 F 05/28/17 12:00 Pulse 89 05/28/17 19:22 Resp 16 05/28/17 12:00 BP 135/71 05/28/17 19:22 Pulse Ox 96 05/28/17 13:00 Weight - Most Recent: 164 lb 1.6 oz I&O - Last 24 Hours: Intake & Output 05/28/17 05/28/17 05/28/17 06:59 14:59 22:59 Intake Total 350 450 360 Output Total 375 300 400 Balance -25 150 -40 Lab Results Last 24 Hours: Laboratory Results - last 24 hr 05/27/17 05/27/17 05/27/17 Range/Units 20:03 20:15 23:02 WBC (4.0-10.2) K/uL RBC (4.33-5.41) M/uL Hgb (13.1-16.8) g/dL Hct (39.0-49.0) % MCV (84.0-98.0) fL MCH (28.2-33.3) pg MCHC (31.7-36.0) g/dL RDW (11.2-14.1) % Plt Count (150-350) K/uL Neut % (Auto) (45.0-80.0) % Lymph % (Auto) (10.0-50.0) % [place]anner % (Auto) (2.0-14.0) % Eos % (Auto) (0.0-5.0) % Baso % (Auto) (0.0-2.0) % Neut # (Auto) (1.40-7.00) K/uL Lymph # (Auto) (0.50-3.50) K/uL Banner # (Auto) (0.00-1.00) K/uL Eos # (Auto) (0.00-0.50) K/uL Baso # (Auto) (0.00-0.20) K/uL Sodium (136-145) mmol/L Potassium (3.5-5.1) mmol/L Chloride (98-107) mmol/L Carbon Dioxide (21.0-32.0) mmol/L BUN (7-18) mg/dL Creatinine (0.51-1.17) mg/dL Est Cr Clr Drug Dosing mL/min Estimated GFR (MDRD) mL/min Glucose 582 H* (74-106) mg/dL POC Glucose > 500 H* 227 H (65-110) mg/dl Lactic Acid (0.4-2.0) mmol/L Calcium (8.5-10.1) mg/dL Phosphorus (2.6-4.7) mg/dL Total Bilirubin (0.2-1.0) mg/dL AST (15-37) U/L ALT (12-78) U/L Alkaline Phosphatase (46-116) IU/L C-Reactive Protein (<=0.9) mg/dL NT-Pro-B Natriuret Pep (0-125) pg/mL Total Protein (6.4-8.2) g/dL Albumin (3.4-5.0) g/dL Ketones 05/28/17 05/28/17 05/28/17 Range/Units 03:46 07:00 07:00 WBC 15.7 H (4.0-10.2) K/uL RBC 4.28 L (4.33-5.41) M/uL Hgb 12.4 L (13.1-16.8) g/dL Hct 37.3 L (39.0-49.0) % MCV 87.1 (84.0-98.0) fL MCH 29.0 (28.2-33.3) pg MCHC 33.2 (31.7-36.0) g/dL RDW 13.4 (11.2-14.1) % Plt Count 260 (150-350) K/uL Neut % (Auto) 94.8 H (45.0-80.0) % Lymph % (Auto) 3.0 L (10.0-50.0) % Banner % (Auto) 2.1 (2.0-14.0) % Eos % (Auto) 0.0 (0.0-5.0) % Baso % (Auto) 0.1 (0.0-2.0) % Neut # (Auto) 14.90 H (1.40-7.00) K/uL Lymph # (Auto) 0.47 L (0.50-3.50) K/uL Banner # (Auto) 0.33 (0.00-1.00) K/uL Eos # (Auto) 0.00 (0.00-0.50) K/uL Baso # (Auto) 0.01 (0.00-0.20) K/uL Sodium 133 L (136-145) mmol/L Potassium 5.2 H (3.5-5.1) mmol/L Chloride 96 L (98-107) mmol/L Carbon Dioxide 26.5 (21.0-32.0) mmol/L BUN 42 H (7-18) mg/dL Creatinine 1.12 (0.51-1.17) mg/dL Est Cr Clr Drug Dosing 40.55 mL/min Estimated GFR (MDRD) > 60 mL/min Glucose 353 H* (74-106) mg/dL POC Glucose 283 H* (65-110) mg/dl Lactic Acid (0.4-2.0) mmol/L Calcium 9.6 (8.5-10.1) mg/dL Phosphorus 4.5 (2.6-4.7) mg/dL Total Bilirubin 0.4 (0.2-1.0) mg/dL AST 30 (15-37) U/L ALT 26 (12-78) U/L Alkaline Phosphatase 62 (46-116) IU/L C-Reactive Protein 4.3 H (<=0.9) mg/dL NT-Pro-B Natriuret Pep 898 H (0-125) pg/mL Total Protein 6.8 (6.4-8.2) g/dL Albumin 2.5 L (3.4-5.0) g/dL Ketones 05/28/17 05/28/17 05/28/17 Range/Units 07:00 07:00 11:22 WBC (4.0-10.2) K/uL RBC (4.33-5.41) M/uL Hgb (13.1-16.8) g/dL Hct (39.0-49.0) % MCV (84.0-98.0) fL MCH (28.2-33.3) pg MCHC (31.7-36.0) g/dL RDW (11.2-14.1) % Plt Count (150-350) K/uL Neut % (Auto) (45.0-80.0) % Lymph % (Auto) (10.0-50.0) % Banner % (Auto) (2.0-14.0) % Eos % (Auto) (0.0-5.0) % Baso % (Auto) (0.0-2.0) % Neut # (Auto) (1.40-7.00) K/uL Lymph # (Auto) (0.50-3.50) K/uL Banner # (Auto) (0.00-1.00) K/uL Eos # (Auto) (0.00-0.50) K/uL Baso # (Auto) (0.00-0.20) K/uL Sodium (136-145) mmol/L Potassium (3.5-5.1) mmol/L Chloride (98-107) mmol/L Carbon Dioxide (21.0-32.0) mmol/L BUN (7-18) mg/dL Creatinine (0.51-1.17) mg/dL Est Cr Clr Drug Dosing mL/min Estimated GFR (MDRD) mL/min Glucose (74-106) mg/dL POC Glucose 432 H* (65-110) mg/dl Lactic Acid 2.5 H (0.4-2.0) mmol/L Calcium (8.5-10.1) mg/dL Phosphorus (2.6-4.7) mg/dL Total Bilirubin (0.2-1.0) mg/dL AST (15-37) U/L ALT (12-78) U/L Alkaline Phosphatase (46-116) IU/L C-Reactive Protein (<=0.9) mg/dL NT-Pro-B Natriuret Pep (0-125) pg/mL Total Protein (6.4-8.2) g/dL Albumin (3.4-5.0) g/dL Ketones Negative 05/28/17 05/28/17 Range/Units 17:18 19:24 WBC (4.0-10.2) K/uL RBC (4.33-5.41) M/uL Hgb (13.1-16.8) g/dL Hct (39.0-49.0) % MCV (84.0-98.0) fL MCH (28.2-33.3) pg MCHC (31.7-36.0) g/dL RDW (11.2-14.1) % Plt Count (150-350) K/uL Neut % (Auto) (45.0-80.0) % Lymph % (Auto) (10.0-50.0) % Banner % (Auto) (2.0-14.0) % Eos % (Auto) (0.0-5.0) % Baso % (Auto) (0.0-2.0) % Neut # (Auto) (1.40-7.00) K/uL Lymph # (Auto) (0.50-3.50) K/uL Banner # (Auto) (0.00-1.00) K/uL Eos # (Auto) (0.00-0.50) K/uL Baso # (Auto) (0.00-0.20) K/uL Sodium (136-145) mmol/L Potassium (3.5-5.1) mmol/L Chloride (98-107) mmol/L Carbon Dioxide (21.0-32.0) mmol/L BUN (7-18) mg/dL Creatinine (0.51-1.17) mg/dL Est Cr Clr Drug Dosing mL/min Estimated GFR (MDRD) mL/min Glucose (74-106) mg/dL POC Glucose 342 H* 473 H* (65-110) mg/dl Lactic Acid (0.4-2.0) mmol/L Calcium (8.5-10.1) mg/dL Phosphorus (2.6-4.7) mg/dL Total Bilirubin (0.2-1.0) mg/dL AST (15-37) U/L ALT (12-78) U/L Alkaline Phosphatase (46-116) IU/L C-Reactive Protein (<=0.9) mg/dL NT-Pro-B Natriuret Pep (0-125) pg/mL Total Protein (6.4-8.2) g/dL Albumin (3.4-5.0) g/dL Ketones Roque Results Last 24 Hours: Microbiology 05/26/17 13:23 Aerobic Blood Culture - Preliminary Blood - Venous - Lab Draw NO GROWTH AFTER 2 DAYS Anaerobic Blood Culture - Preliminary NO GROWTH AFTER 2 DAYS 05/26/17 13:18 Aerobic Blood Culture - Preliminary Blood - Venous NO GROWTH AFTER 2 DAYS Anaerobic Blood Culture - Preliminary NO GROWTH AFTER 2 DAYS Med Orders - Current: Current Medications Acetaminophen (Tylenol Arthritis Pain) 650 mg PO BID@0800,2000 [facility] Last Admin: 05/28/17 19:24 Dose: 650 mg Albuterol/Ipratropium (Duoneb 3.0-0.5 Mg/3 Ml) 3 ml NEB ASDIRECTED PRN PRN Reason: sob Albuterol/Ipratropium (Duoneb 3.0-0.5 Mg/3 Ml) 3 ml NEB QID [facility] Last Admin: 05/28/17 19:22 Dose: 3 ml Artificial Tears (Liquitears 1.4% Ophth Soln) 1 ml EYEBOTH ASDIRECTED PRN PRN Reason: Dry Eyes Benzonatate (Tessalon Perles) 200 mg PO BID [facility] Last Admin: 05/28/17 17:31 Dose: 200 mg Ceftazidime (Fortaz) 1 gm IVPUSH Q8H [facility] Last Admin: 05/28/17 14:23 Dose: 1 gm Famotidine (Pepcid) 20 mg PO BEDTIME [facility] Last Admin: 05/28/17 19:22 Dose: 20 mg Finasteride (Proscar) 5 mg PO BEDTIME [facility] Last Admin: 05/28/17 19:24 Dose: 5 mg Furosemide (Lasix) 80 mg IVPUSH DAILY [facility] Last Admin: 05/28/17 07:59 Dose: 80 mg Gabapentin (Neurontin) 300 mg PO BEDTIME [facility] Last Admin: 05/28/17 19:24 Dose: 300 mg Guaifenesin/Dextromethorphan (Mucinex Dm Er 600-30 Mg) 1 tab PO BID [facility] Last Admin: 05/28/17 17:30 Dose: 1 tab Azithromycin 500 mg/ Sodium (Chloride) 250 mls @ 250 mls/hr IV Q24H [facility] Last Admin: 05/28/17 16:18 Dose: 250 mls/hr Metronidazole 500 mg/ Premix 100 mls @ 100 mls/hr IV Q8H [facility] Last Admin: 05/28/17 14:32 Dose: 100 mls/hr Insulin Aspart (Novolog) 0 unit SUBCUT ACBED [facility] PRN Reason: Protocol Last Admin: 05/28/17 17:30 Dose: 10 units Insulin Human NPH (Humulin N) 35 unit SUBCUT Q12HR [facility] Last Admin: 05/28/17 19:24 Dose: 35 unit Insulin Human Regular (Humulin R) 15 unit IV ONETIME ONE Stop: 05/28/17 19:37 Isosorbide Mononitrate (Imdur) 60 mg PO DAILY [facility] Last Admin: 05/28/17 08:04 Dose: Not Given Lisinopril (Prinivil) 2.5 mg PO BEDTIME [facility] Last Admin: 05/28/17 19:22 Dose: 2.5 mg Lorazepam (Ativan) 0.5 mg PO BID PRN PRN Reason: Anxiety Methyl Salicylate (Icy Hot Cream) 0 gm TOP ASDIRECTED PRN PRN Reason: Muscle aches Last Admin: 05/26/17 21:45 Dose: 1 applic Methylprednisolone Sodium Succinate (Solu-Medrol) 20 mg IVPUSH Q12HR [facility] Last Admin: 05/28/17 19:21 Dose: 20 mg Metoprolol Tartrate (Lopressor) 50 mg PO BID@0800,1999 [facility] Last Admin: 05/28/17 19:22 Dose: 50 mg Sodium Chloride (Saline Flush) 10 ml FLUSH ASDIRECTED PRN PRN Reason: Keep Vein Open Last Admin: 05/28/17 19:21 Dose: 10 ml Tamsulosin HCl (Flomax) 0.8 mg PO DAILY@1999 [facility] Last Admin: 05/28/17 19:21 Dose: 0.8 mg Discontinued Medications Aspirin (Halfprin) 81 mg PO DAILY [facility] Last Admin: 05/27/17 08:04 Dose: 81 mg Insulin Aspart (Novolog) 20 unit SUBCUT ONETIME ONE PRN Reason: Protocol Stop: 05/27/17 17:01 Last Admin: 05/27/17 18:05 Dose: 20 units Insulin Human NPH (Humulin N) 20 unit SUBCUT Q12HR [facility] Last Admin: 05/27/17 22:35 Dose: Not Given Insulin Human NPH (Humulin N) 26 unit SUBCUT Q12HR [facility] Last Admin: 05/28/17 08:02 Dose: 26 units Insulin Human Regular (Humulin R) 10 unit SUBCUT BIDAC [facility] Stop: 05/26/17 23:59 Last Admin: 05/26/17 20:57 Dose: 10 units Insulin Human Regular (Humulin R) 10 unit SUBCUT ONETIME ONE PRN Reason: Protocol Stop: 05/27/17 00:02 Last Admin: 05/27/17 00:44 Dose: 10 units Insulin Human Regular (Humulin R) 10 unit IV ONETIME ONE Stop: 05/27/17 21:11 Last Admin: 05/27/17 21:57 Dose: 10 units Methylprednisolone Sodium Succinate (Solu-Medrol) 20 mg IVPUSH Q12H [facility] Last Admin: 05/27/17 13:46 Dose: 20 mg - Exam General: Alert, Cooperative, No Acute Distress HEENT: Mucous Membr. Moist/[place] Neck: Trachea Midline, No JVD Lungs: Normal Respiratory Effort, Decreased Breath Sounds, Rhonchi Cardiovascular: Irregular Rhythm GI/Abdominal Exam: Soft, Non-Tender, No Distention (Male) Exam: Deferred Back Exam: Normal Inspection Extremities: Non-Tender Skin: Warm, Dry, Intact Neurological: No New Focal Deficit Psy/Mental Status: Alert, Normal Affect, Normal Mood - Problem List & Annotations (1) Pneumonia SNOMED Code(s): 108916520 Code(s): J18.9 - PNEUMONIA, UNSPECIFIED ORGANISM Status: Acute Priority: High Current Visit: No Qualifiers: Pneumonia type: due to unspecified organism Laterality: unspecified laterality (2) Renal insufficiency SNOMED Code(s): 856505633 Code(s): N28.9 - DISORDER OF KIDNEY AND URETER, UNSPECIFIED Status: Acute Priority: High Current Visit: No Onset Date: 11/27/16 Annotation/Comment :: As above (3) Silent aspiration SNOMED Code(s): 746276154 Code(s): T17.900A - UNSP FB IN RESP TRACT, PART UNSP CAUSING ASPHYX, INIT Status: Acute Priority: High Current Visit: No Onset Date: 03/16/15 Annotation/Comment:: Underwent video swallow with SENIOR QUALITY ASSURANCE ENGINEER today (4) COPD (chronic obstructive pulmonary disease) SNOMED Code(s): 10412462 Code(s): J44.9 - CHRONIC OBSTRUCTIVE PULMONARY DISEASE, UNSPECIFIED Status : Chronic Priority: Medium Current Visit: No Qualifiers: COPD type: emphysema Emphysema type: panlobular Qualified Code(s): J43.1 - Panlobular emphysema Annotation/Comment:: COPD by chest x-ray with no recent fever or bronchitic type symptoms (5) Coronary artery disease SNOMED Code(s): 57308212 Code(s): I25.10 - ATHSCL HEART DISEASE OF [place] CORONARY ARTERY W/O ANG PCTRS Status: Chronic Priority: High Current Visit: No Qualifiers: Coronary Disease-Associated Artery/Lesion type: bypass graft, autologous vein Associated angina: with unstable angina Qualified Code(s): I25.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 No EKG changes or true anginal type symptoms. Artifactually elevated CK index secondary to low CK baseline. 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 IV Lasix therapy with caution. Lisinopril as above. Glycosylated hemoglobin later today (7) Hyperlipidemia SNOMED Code(s): 36874072 Code(s): E78.5 - HYPERLIPIDEMIA, UNSPECIFIED Status: Chronic Priority: Medium Current Visit: No Qualifiers: Hyperlipidemia type: unspecified Qualified Code(s): E78.5 - Hyperlipidemia , unspecified Annotation/Comment:: Lipid panel later today. Currently under therapy (8) Mixed anxiety depressive disorder SNOMED Code(s): 253350170 Code(s): F41.8 - OTHER SPECIFIED ANXIETY DISORDERS Status: Chronic Priority: Medium Current Visit: No Annotation/Comment:: Stable by history (9) Need for comfort care SNOMED Code(s): 873117777 Code(s): QBV5068 - Status: Chronic Priority: Medium Current Visit: No Annotation/Comment:: As above with comfort care verified with the patient today (10) Osteoarthritis SNOMED Code(s): 869405729 Code(s): M19.90 - UNSPECIFIED OSTEOARTHRITIS, UNSPECIFIED SITE Status: Chronic Priority: Medium Current Visit: No Qualifiers: Osteoarthritis location: multiple joints Osteoarthritis type: primary Qualified Code(s): M15.0 - Primary generalized (osteo)arthritis Annotation/Comment:: Stable by history (11) PVCs (premature ventricular contractions) SNOMED Code(s): 14844700 Code(s): I49.3 - VENTRICULAR PREMATURE DEPOLARIZATION Status: Chronic Priority: High Current Visit: No Onset Date: 11/27/16 Annotation/Comment: : As above. (12) Peptic reflux disease SNOMED Code(s): 18504249 Code(s): K21.9 - GASTRO-ESOPHAGEAL REFLUX DISEASE WITHOUT ESOPHAGITIS Status: Chronic Priority: Medium Current Visit: No Annotation/Comment:: Stable by history with immediate resolution of patient's symptoms with high- dose IV Pepcid given in the emergency room. 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 O2 sats 84-93% in the clinic, and respirations up to 28 breaths/min. Increased dyspnea with ambulation. Denied any CP. Says just so tired, weak, fatigued, no appetite, some nausea. Not able to take last doses of po antibiotic d/t nausea. Blood sugars have been reading High over the weekend. Patient very thirsty. Some headache last night. Consulted Dr. Burden at the time of admit. 05/27/17 Jenise Bonds MD Still with congested cough. Continue IV antibiotics. Blood sugar quite high. Insulin ordered. 05/28/17 Jenise Bonds MD Says he feels a little bit better today. Still with cough. Continue IV antibiotics. Blood sugars still high but he feels fine. Continue to adjust insulin.
[2017-05-28] MEDS ORDERED: Insulin Isophane NPH, Human 100 Units/ML 3 ML Pen SUBCUT SCH (20:00)
[2017-05-28] MEDS ORDERED: Insulin Regular, Human 100 Units/ML 3 ML Vial SUBCUT ONE (20:00)
[2017-05-29] MEDS: cefTAZidime 1 GM Vial IVPUSH SCH ×3 (05:15→21:22)
[2017-05-29] MEDS: Sodium Chloride 0.9% 10 ML Syringe FLUSH PRN ×5 (05:15→21:23)
[2017-05-29] MEDS: metroNIDAZOLE/Normal Saline 500 MG in Premix Bag 1 BAG IV SCH ×3 (05:15→21:23)
[2017-05-29 07:31] LABS: O2 SATURATION VENOUS 48 %; PCO2 VENOUS 44 mmHG (41-51); PH,VENOUS 7.39 (7.31-7.41); PO2 VENOUS 26 mmHG
[2017-05-29 07:35] LABS: BASE EXCESS VENOUS 2 mmol/L ((-2)-3); BICARBONATE,VENOUS 27 mmol/L (23-28)
[2017-05-29 07:43] LABS: CHLORIDE,CL 100 mmol/L (98-107); SODIUM,NA 135 mmol/L (136-145)
[2017-05-29] MEDS: Albuterol/Ipratropium 3.0-0.5 MG/3 ML Neb Soln NEB SCH ×4 (07:47→20:17)
[2017-05-29] MEDS: Insulin Aspart 100 Units/ML 3 ML Pen SUBCUT SCH ×4 (07:47→20:20)
[2017-05-29] MEDS: Budesonide 0.5 MG/2 ML Neb Susp NEB SCH ×2 (07:47→20:17)
[2017-05-29] MEDS: Dextromethorphan/guaiFENesin 600-30 MG Tab.ER PO SCH ×2 (07:48→17:24)
[2017-05-29] MEDS: Acetaminophen 650 MG Tab.ER PO SCH ×2 (07:48→20:15)
[2017-05-29] MEDS: Arformoterol 15 MCG/2 ML Neb Soln NEB SCH ×2 (07:48→20:17)
[2017-05-29] MEDS: Isosorbide Mononitrate 60 MG Tab.ER PO SCH (07:48)
[2017-05-29] MEDS: Metoprolol Tartrate 50 MG Tab PO SCH ×2 (07:48→20:15)
[2017-05-29] MEDS: Benzonatate 100 MG Cap PO SCH ×2 (07:48→17:24)
[2017-05-29] MEDS: Furosemide 40 MG/4 ML VIAL IVPUSH SCH (07:48)
[2017-05-29] MEDS: Insulin Detemir 100 Units/ML 3 ML Pen SUBCUT SCH (07:55)
[2017-05-29] MEDS ORDERED: Azithromycin 250 MG Tab PO SCH (12:00)
--- NOTE | 2017-05-29 13:44 | PCM.PN ---
- General Info Date of Service: 05/29/17 Admission Dx/Problem (Free Text): Admission Diagnosis/Problem Admission Diagnosis/Problem Pneumonia Functional Status: Reports: Ambulating - Review of Systems General: Reports: Other (says much better than on admit) HEENT: Reports: No Symptoms Pulmonary: Reports: Shortness of Breath (with ambulation, but much better), Cough Cardiovascular: Reports: Dyspnea on Exertion Gastrointestinal: Reports: No Symptoms Genitourinary: Reports: Other (catheter, permanent indwelling) Musculoskeletal: Reports: No Symptoms Skin: Reports: No Symptoms Neurological: Reports: No Symptoms Psychiatric: Reports: No Symptoms - Patient Data Vitals - Most Recent: Last Vital Signs Temp 97.5 F 05/29/17 12:00 Pulse 87 05/29/17 12:00 Resp 17 05/29/17 12:00 BP 115/66 05/29/17 12:00 Pulse Ox 96 05/29/17 12:00 Weight - Most Recent: 166 lb 12.8 oz I&O - Last 24 Hours: Intake & Output 05/28/17 05/29/17 05/29/17 22:59 06:59 14:59 Intake Total 360 100 Output Total 1200 720 Balance -840 -620 Lab Results Last 24 Hours: Laboratory Results - last 24 hr 05/28/17 05/28/17 05/28/17 Range/Units 17:18 19:24 21:01 WBC (4.0-10.2) K/uL RBC (4.33-5.41) M/uL Hgb (13.1-16.8) g/dL Hct (39.0-49.0) % MCV (84.0-98.0) fL MCH (28.2-33.3) pg MCHC (31.7-36.0) g/dL RDW (11.2-14.1) % Plt Count (150-350) K/uL Neut % (Auto) (45.0-80.0) % Lymph % (Auto) (10.0-50.0) % [place] % (Auto) (2.0-14.0) % Eos % (Auto) (0.0-5.0) % Baso % (Auto) (0.0-2.0) % Neut # (Auto) (1.40-7.00) K/uL Lymph # (Auto) (0.50-3.50) K/uL [place] # (Auto) (0.00-1.00) K/uL Eos # (Auto) (0.00-0.50) K/uL Baso # (Auto) (0.00-0.20) K/uL VBG pH (7.31-7.41) VBG pCO2 (41-51) mmHG VBG pO2 mmHG VBG HCO3 (23-28) mmol/L VBG Total CO2 mmol/L VBG O2 Saturation % VBG Base Excess ((-2)-3) mmol/L O2 Delivery Device Sodium (136-145) mmol/L Potassium (3.5-5.1) mmol/L Chloride (98-107) mmol/L Carbon Dioxide (21.0-32.0) mmol/L BUN (7-18) mg/dL Creatinine (0.51-1.17) mg/dL Est Cr Clr Drug Dosing mL/min Estimated GFR (MDRD) mL/min Glucose (74-106) mg/dL POC Glucose 342 H* 473 H* 309 H* (65-110) mg/dl Calcium (8.5-10.1) mg/dL Total Bilirubin (0.2-1.0) mg/dL AST (15-37) U/L ALT (12-78) U/L Alkaline Phosphatase (46-116) IU/L C-Reactive Protein (<=0.9) mg/dL NT-Pro-B Natriuret Pep (0-125) pg/mL Total Protein (6.4-8.2) g/dL Albumin (3.4-5.0) g/dL 05/29/17 05/29/17 05/29/17 Range/Units 03:50 06:50 06:50 WBC 15.6 H (4.0-10.2) K/uL RBC 4.30 L (4.33-5.41) M/uL Hgb 12.5 L (13.1-16.8) g/dL Hct 37.0 L (39.0-49.0) % MCV 86.0 (84.0-98.0) fL MCH 29.1 (28.2-33.3) pg MCHC 33.8 (31.7-36.0) g/dL RDW 13.3 (11.2-14.1) % Plt Count 258 (150-350) K/uL Neut % (Auto) 92.4 H (45.0-80.0) % Lymph % (Auto) 3.5 L (10.0-50.0) % [place] % (Auto) 4.0 (2.0-14.0) % Eos % (Auto) 0.0 (0.0-5.0) % Baso % (Auto) 0.1 (0.0-2.0) % Neut # (Auto) 14.42 H (1.40-7.00) K/uL Lymph # (Auto) 0.55 (0.50-3.50) K/uL [place] # (Auto) 0.63 (0.00-1.00) K/uL Eos # (Auto) 0.00 (0.00-0.50) K/uL Baso # (Auto) 0.01 (0.00-0.20) K/uL VBG pH (7.31-7.41) VBG pCO2 (41-51) mmHG VBG pO2 mmHG VBG HCO3 (23-28) mmol/L VBG Total CO2 mmol/L VBG O2 Saturation % VBG Base Excess ((-2)-3) mmol/L O2 Delivery Device Sodium 135 L (136-145) mmol/L Potassium 4.5 (3.5-5.1) mmol/L Chloride 100 (98-107) mmol/L Carbon Dioxide 27.8 (21.0-32.0) mmol/L BUN 40 H (7-18) mg/dL Creatinine 1.00 (0.51-1.17) mg/dL Est Cr Clr Drug Dosing 45.42 mL/min Estimated GFR (MDRD) > 60 mL/min Glucose 133 H (74-106) mg/dL POC Glucose 108 (65-110) mg/dl Calcium 9.6 (8.5-10.1) mg/dL Total Bilirubin 0.4 (0.2-1.0) mg/dL AST 32 (15-37) U/L ALT 28 (12-78) U/L Alkaline Phosphatase 63 (46-116) IU/L C-Reactive Protein 2.4 H (<=0.9) mg/dL NT-Pro-B Natriuret Pep 1183 H (0-125) pg/mL Total Protein 6.6 (6.4-8.2) g/dL Albumin 2.4 L (3.4-5.0) g/dL 05/29/17 05/29/17 05/29/17 Range/Units 06:50 07:03 11:18 WBC (4.0-10.2) K/uL RBC (4.33-5.41) M/uL Hgb (13.1-16.8) g/dL Hct (39.0-49.0) % MCV (84.0-98.0) fL MCH (28.2-33.3) pg MCHC (31.7-36.0) g/dL RDW (11.2-14.1) % Plt Count (150-350) K/uL Neut % (Auto) (45.0-80.0) % Lymph % (Auto) (10.0-50.0) % [place] % (Auto) (2.0-14.0) % Eos % (Auto) (0.0-5.0) % Baso % (Auto) (0.0-2.0) % Neut # (Auto) (1.40-7.00) K/uL Lymph # (Auto) (0.50-3.50) K/uL [place] # (Auto) (0.00-1.00) K/uL Eos # (Auto) (0.00-0.50) K/uL Baso # (Auto) (0.00-0.20) K/uL VBG pH 7.39 (7.31-7.41) VBG pCO2 44 (41-51) mmHG VBG pO2 26 mmHG VBG HCO3 27 (23-28) mmol/L VBG Total CO2 28 mmol/L VBG O2 Saturation 48 % VBG Base Excess 2 ((-2)-3) mmol/L O2 Delivery Device Sodium (136-145) mmol/L Potassium (3.5-5.1) mmol/L Chloride (98-107) mmol/L Carbon Dioxide (21.0-32.0) mmol/L BUN (7-18) mg/dL Creatinine (0.51-1.17) mg/dL Est Cr Clr Drug Dosing mL/min Estimated GFR (MDRD) mL/min Glucose (74-106) mg/dL POC Glucose 121 H 288 H* (65-110) mg/dl Calcium (8.5-10.1) mg/dL Total Bilirubin (0.2-1.0) mg/dL AST (15-37) U/L ALT (12-78) U/L Alkaline Phosphatase (46-116) IU/L C-Reactive Protein (<=0.9) mg/dL NT-Pro-B Natriuret Pep (0-125) pg/mL Total Protein (6.4-8.2) g/dL Albumin (3.4-5.0) g/dL Roque Results Last 24 Hours: Microbiology 05/26/17 13:23 Aerobic Blood Culture - Preliminary Blood - Venous - Lab Draw NO GROWTH AFTER 3 DAYS Anaerobic Blood Culture - Preliminary NO GROWTH AFTER 3 DAYS 05/26/17 13:18 Aerobic Blood Culture - Preliminary Blood - Venous NO GROWTH AFTER 3 DAYS Anaerobic Blood Culture - Preliminary NO GROWTH AFTER 3 DAYS Med Orders - Current: Current Medications Acetaminophen (Tylenol Arthritis Pain) 650 mg PO BID@0800,2000 [facility] Last Admin: 05/29/17 07:48 Dose: 650 mg Albuterol/Ipratropium (Duoneb 3.0-0.5 Mg/3 Ml) 3 ml NEB ASDIRECTED PRN PRN Reason: sob Albuterol/Ipratropium (Duoneb 3.0-0.5 Mg/3 Ml) 3 ml NEB QID [facility] Last Admin: 05/29/17 12:02 Dose: 3 ml Arformoterol Tartrate (Brovana) 15 mcg NEB BIDRT [facility] Last Admin: 05/29/17 07:48 Dose: 15 mcg Artificial Tears (Liquitears 1.4% Ophth Soln) 1 ml EYEBOTH ASDIRECTED PRN PRN Reason: Dry Eyes Azithromycin (Zithromax) 500 mg PO DAILY@1200 [facility] Last Admin: 05/29/17 12:02 Dose: 500 mg Benzonatate (Tessalon Perles) 200 mg PO BID [facility] Last Admin: 05/29/17 07:48 Dose: 200 mg Budesonide (Pulmicort) 0.5 mg NEB BIDRT [facility] Last Admin: 05/29/17 07:47 Dose: 0.5 mg Ceftazidime (Fortaz) 1 gm IVPUSH Q8H [facility] Last Admin: 05/29/17 05:15 Dose: 1 gm Famotidine (Pepcid) 20 mg PO BEDTIME [facility] Last Admin: 05/28/17 19:22 Dose: 20 mg Finasteride (Proscar) 5 mg PO BEDTIME [facility] Last Admin: 05/28/17 19:24 Dose: 5 mg Furosemide (Lasix) 80 mg IVPUSH DAILY [facility] Last Admin: 05/29/17 07:48 Dose: 80 mg Gabapentin (Neurontin) 300 mg PO BEDTIME [facility] Last Admin: 05/28/17 19:24 Dose: 300 mg Guaifenesin/Dextromethorphan (Mucinex Dm Er 600-30 Mg) 1 tab PO BID [facility] Last Admin: 05/29/17 07:48 Dose: 1 tab Metronidazole 500 mg/ Premix 100 mls @ 100 mls/hr IV Q8H [facility] Last Admin: 05/29/17 05:15 Dose: 100 mls/hr Insulin Aspart (Novolog) 0 unit SUBCUT ACBED [facility] PRN Reason: Protocol Last Admin: 05/29/17 12:03 Dose: 8 units Insulin Detemir (Levemir) 40 unit SUBCUT DAILY [facility] Last Admin: 05/29/17 07:55 Dose: 40 units Isosorbide Mononitrate (Imdur) 60 mg PO DAILY [facility] Last Admin: 05/29/17 07:48 Dose: 60 mg Lorazepam (Ativan) 0.5 mg PO BID PRN PRN Reason: Anxiety Methyl Salicylate (Icy Hot Cream) 0 gm TOP ASDIRECTED PRN PRN Reason: Muscle aches Last Admin: 05/26/17 21:45 Dose: 1 applic Metoprolol Tartrate (Lopressor) 50 mg PO BID@ [facility] Last Admin: 05/29/17 07:48 Dose: 50 mg Sodium Chloride (Saline Flush) 10 ml FLUSH ASDIRECTED PRN PRN Reason: Keep Vein Open Last Admin: 05/29/17 07:51 Dose: 10 ml Tamsulosin HCl (Flomax) 0.8 mg PO DAILY@1999 [facility] Last Admin: 05/28/17 19:21 Dose: 0.8 mg Discontinued Medications Aspirin (Halfprin) 81 mg PO DAILY [facility] Last Admin: 05/27/17 08:04 Dose: 81 mg Azithromycin 500 mg/ Sodium (Chloride) 250 mls @ 250 mls/hr IV Q24H [facility] Last Admin: 05/28/17 16:18 Dose: 250 mls/hr Insulin Aspart (Novolog) 20 unit SUBCUT ONETIME ONE PRN Reason: Protocol Stop: 05/27/17 17:01 Last Admin: 05/27/17 18:05 Dose: 20 units Insulin Human NPH (Humulin N) 20 unit SUBCUT Q12HR [facility] Last Admin: 05/27/17 22:35 Dose: Not Given Insulin Human NPH (Humulin N) 26 unit SUBCUT Q12HR [facility] Last Admin: 05/28/17 08:02 Dose: 26 units Insulin Human NPH (Humulin N) 35 unit SUBCUT Q12HR [facility] Last Admin: 05/28/17 19:24 Dose: 35 unit Insulin Human Regular (Humulin R) 10 unit SUBCUT BIDAC [facility] Stop: 05/26/17 23:59 Last Admin: 05/26/17 20:57 Dose: 10 units Insulin Human Regular (Humulin R) 10 unit SUBCUT ONETIME ONE PRN Reason: Protocol Stop: 05/27/17 00:02 Last Admin: 05/27/17 00:44 Dose: 10 units Insulin Human Regular (Humulin R) 10 unit IV ONETIME ONE Stop: 05/27/17 21:11 Last Admin: 05/27/17 21:57 Dose: 10 units Insulin Human Regular (Humulin R) 15 unit SUBCUT ONETIME ONE Stop: 05/28/17 20:01 Last Admin: 05/28/17 21:15 Dose: 15 units Lisinopril (Prinivil) 2.5 mg PO BEDTIME [facility] Last Admin: 05/28/17 19:22 Dose: 2.5 mg Losartan Potassium (Cozaar) 25 mg PO BEDTIME [facility] Methylprednisolone Sodium Succinate (Solu-Medrol) 20 mg IVPUSH Q12H [facility] Last Admin: 05/27/17 13:46 Dose: 20 mg Methylprednisolone Sodium Succinate (Solu-Medrol) 20 mg IVPUSH Q12HR [facility] Last Admin: 05/28/17 19:21 Dose: 20 mg - Exam General: Alert, Oriented HEENT: Mucous Membr. Moist/[place] Neck: Supple, Trachea Midline Lungs: Decreased Breath Sounds, Rhonchi (very faint, almost clear after coughing ) Cardiovascular: Regular Rate, Regular Rhythm GI/Abdominal Exam: Normal Bowel Sounds, Soft, Non-Tender, No Distention (Male) Exam: Other (adame catheter patent, clear yellow urine) Back Exam: Normal Inspection Extremities: No Pedal Edema Skin: Warm, Dry, Intact Neurological: No New Focal Deficit Psy/Mental Status: Alert, Normal Affect, Normal Mood - Problem List & Annotations (1) Pneumonia SNOMED Code(s): 418416983 Code(s): J18.9 - PNEUMONIA, UNSPECIFIED ORGANISM Status: Acute Priority: High Current Visit: No Qualifiers: Pneumonia type: due to unspecified organism Laterality: unspecified laterality - Problem List Review Problem List Initiated/Reviewed/Updated: Yes - Plan Plan:: 05-26-17 Andrez Schmidt PA-C Admitting for IP therapy, from the [facility]. O2 sats 84-93% in the clinic, and respirations up to 28 breaths/min. Increased dyspnea with ambulation. Denied any CP. Says just so tired, weak, fatigued, no appetite, some nausea. Not able to take last doses of po antibiotic d/t nausea. Blood sugars have been reading High over the weekend. Patient very thirsty. Some headache last night. Consulted Dr. Burden at the time of admit. 05/27/17 Jenise Bonds MD Still with congested cough. Continue IV antibiotics. Blood sugar quite high. Insulin ordered. 05/28/17 Jenise Bonds MD Says he feels a little bit better today. Still with cough. Continue IV antibiotics. Blood sugars still high but he feels fine. Continue to adjust insulin. 05-29-17 Andrez Schmidt PA-C Thanks me for putting him in the hospital, says he feels so much better than he did on admit. Still some cough. Some SOB with ambulation, but says so much better - says worked with PT yesterday and was happy how well he did. Denies CP. Consulted with Dr. Burden, will consider discharge back to [facility] tomorrow. Need to continue acute care at least another day, will repeat labs in AM and exam tomorrow.
[2017-05-29] MEDS ORDERED: Losartan 50 MG Tab PO SCH (20:00)
[2017-05-29] MEDS: Finasteride 5 MG Tab PO SCH (20:15)
[2017-05-29] MEDS: Gabapentin 300 MG Cap PO SCH (20:15)
[2017-05-29] MEDS: Tamsulosin 0.4 MG Cap.ER PO SCH (20:16)
[2017-05-29] MEDS: Famotidine 20 MG Tab PO SCH (20:16)
[2017-05-30] MEDS: Sodium Chloride 0.9% 10 ML Syringe FLUSH PRN ×2 (05:45→05:46)
[2017-05-30] MEDS: cefTAZidime 1 GM Vial IVPUSH SCH (05:45)
[2017-05-30] MEDS: metroNIDAZOLE/Normal Saline 500 MG in Premix Bag 1 BAG IV SCH (05:45)
[2017-05-30] MEDS: Albuterol/Ipratropium 3.0-0.5 MG/3 ML Neb Soln NEB SCH (08:47)
[2017-05-30] MEDS: Insulin Aspart 100 Units/ML 3 ML Pen SUBCUT SCH (08:47)
[2017-05-30] MEDS: Arformoterol 15 MCG/2 ML Neb Soln NEB SCH (08:47)
[2017-05-30] MEDS: Dextromethorphan/guaiFENesin 600-30 MG Tab.ER PO SCH (08:52)
[2017-05-30] MEDS: Benzonatate 100 MG Cap PO SCH (08:53)
[2017-05-30] MEDS: Acetaminophen 650 MG Tab.ER PO SCH (08:54)
[2017-05-30] MEDS: Metoprolol Tartrate 50 MG Tab PO SCH (09:20)
[2017-05-30] MEDS: Furosemide 40 MG/4 ML VIAL IVPUSH SCH (09:20)
[2017-05-30] MEDS: Isosorbide Mononitrate 60 MG Tab.ER PO SCH (09:21)
[2017-05-30] MEDS: Budesonide 0.5 MG/2 ML Neb Susp NEB SCH (09:21)
[2017-05-30 09:22] VITALS: BP 115/69
[2017-05-30] MEDS: Insulin Detemir 100 Units/ML 3 ML Pen SUBCUT SCH (09:22)
[2017-05-30] MEDS ORDERED: Furosemide 40 MG/4 ML VIAL IVPUSH ONE (09:33)
--- NOTE | 2017-05-30 09:50 | PCM.PN ---
- General Info Date of Service: 05/30/17 Admission Dx/Problem (Free Text): Admission Diagnosis/Problem Admission Diagnosis/Problem Pneumonia Functional Status: Reports: Ambulating - Review of Systems General: Reports: No Symptoms, Other (says ready to go back to [facility]) HEENT: Reports: No Symptoms Pulmonary: Reports: Shortness of Breath (minimal, improved), Cough (minimal) Cardiovascular: Reports: Dyspnea on Exertion (but walking better, wants to walk more) Gastrointestinal: Reports: No Symptoms Genitourinary: Reports: No Symptoms, Other (indwelling catheter) Musculoskeletal: Reports: No Symptoms Skin: Reports: No Symptoms Neurological: Reports: Other (did tell nurse this morning that he was seeing some bugs - "probably from the medicine I've been getting" - none on my exam) Psychiatric: Reports: No Symptoms - Patient Data Vitals - Most Recent: Last Vital Signs Temp 98.5 F 05/30/17 08:00 Pulse 86 05/30/17 09:20 Resp 16 05/30/17 08:00 BP 115/69 05/30/17 09:20 Pulse Ox 96 05/30/17 08:00 Weight - Most Recent: 361 lb 15.984 oz I&O - Last 24 Hours: Intake & Output 05/29/17 05/30/17 05/30/17 22:59 06:59 14:59 Intake Total 2220 450 Output Total 600 100 Balance 1620 -100 450 Lab Results Last 24 Hours: Laboratory Results - last 24 hr 05/29/17 05/29/17 05/29/17 Range/Units 11:18 17:08 20:14 WBC (4.0-10.2) K/uL RBC (4.33-5.41) M/uL Hgb (13.1-16.8) g/dL Hct (39.0-49.0) % MCV (84.0-98.0) fL MCH (28.2-33.3) pg MCHC (31.7-36.0) g/dL RDW (11.2-14.1) % Plt Count (150-350) K/uL Neut % (Auto) (45.0-80.0) % Lymph % (Auto) (10.0-50.0) % [place] % (Auto) (2.0-14.0) % Eos % (Auto) (0.0-5.0) % Baso % (Auto) (0.0-2.0) % Neut # (Auto) (1.40-7.00) K/uL Lymph # (Auto) (0.50-3.50) K/uL [place] # (Auto) (0.00-1.00) K/uL Eos # (Auto) (0.00-0.50) K/uL Baso # (Auto) (0.00-0.20) K/uL Sodium (136-145) mmol/L Potassium (3.5-5.1) mmol/L Chloride (98-107) mmol/L Carbon Dioxide (21.0-32.0) mmol/L BUN (7-18) mg/dL Creatinine (0.51-1.17) mg/dL Est Cr Clr Drug Dosing mL/min Estimated GFR (MDRD) mL/min Glucose (74-106) mg/dL POC Glucose 288 H* 263 H* 221 H (65-110) mg/dl Calcium (8.5-10.1) mg/dL Total Bilirubin (0.2-1.0) mg/dL AST (15-37) U/L ALT (12-78) U/L Alkaline Phosphatase (46-116) IU/L C-Reactive Protein (<=0.9) mg/dL Total Protein (6.4-8.2) g/dL Albumin (3.4-5.0) g/dL 05/30/17 05/30/17 05/30/17 Range/Units 03:43 05:43 06:35 WBC 14.5 H (4.0-10.2) K/uL RBC 4.12 L (4.33-5.41) M/uL Hgb 11.9 L (13.1-16.8) g/dL Hct 35.9 L (39.0-49.0) % MCV 87.1 (84.0-98.0) fL MCH 28.9 (28.2-33.3) pg MCHC 33.1 (31.7-36.0) g/dL RDW 13.5 (11.2-14.1) % Plt Count 259 (150-350) K/uL Neut % (Auto) 82.2 H (45.0-80.0) % Lymph % (Auto) 9.2 L (10.0-50.0) % [place] % (Auto) 8.4 (2.0-14.0) % Eos % (Auto) 0.1 (0.0-5.0) % Baso % (Auto) 0.1 (0.0-2.0) % Neut # (Auto) 11.88 H (1.40-7.00) K/uL Lymph # (Auto) 1.33 (0.50-3.50) K/uL [place] # (Auto) 1.22 H (0.00-1.00) K/uL Eos # (Auto) 0.01 (0.00-0.50) K/uL Baso # (Auto) 0.01 (0.00-0.20) K/uL Sodium (136-145) mmol/L Potassium (3.5-5.1) mmol/L Chloride (98-107) mmol/L Carbon Dioxide (21.0-32.0) mmol/L BUN (7-18) mg/dL Creatinine (0.51-1.17) mg/dL Est Cr Clr Drug Dosing mL/min Estimated GFR (MDRD) mL/min Glucose (74-106) mg/dL POC Glucose 71 91 (65-110) mg/dl Calcium (8.5-10.1) mg/dL Total Bilirubin (0.2-1.0) mg/dL AST (15-37) U/L ALT (12-78) U/L Alkaline Phosphatase (46-116) IU/L C-Reactive Protein (<=0.9) mg/dL Total Protein (6.4-8.2) g/dL Albumin (3.4-5.0) g/dL 05/30/17 05/30/17 Range/Units 06:35 07:32 WBC (4.0-10.2) K/uL RBC (4.33-5.41) M/uL Hgb (13.1-16.8) g/dL Hct (39.0-49.0) % MCV (84.0-98.0) fL MCH (28.2-33.3) pg MCHC (31.7-36.0) g/dL RDW (11.2-14.1) % Plt Count (150-350) K/uL Neut % (Auto) (45.0-80.0) % Lymph % (Auto) (10.0-50.0) % [place] % (Auto) (2.0-14.0) % Eos % (Auto) (0.0-5.0) % Baso % (Auto) (0.0-2.0) % Neut # (Auto) (1.40-7.00) K/uL Lymph # (Auto) (0.50-3.50) K/uL [place] # (Auto) (0.00-1.00) K/uL Eos # (Auto) (0.00-0.50) K/uL Baso # (Auto) (0.00-0.20) K/uL Sodium 135 L (136-145) mmol/L Potassium 4.2 (3.5-5.1) mmol/L Chloride 100 (98-107) mmol/L Carbon Dioxide 29.1 (21.0-32.0) mmol/L BUN 47 H (7-18) mg/dL Creatinine 1.26 H (0.51-1.17) mg/dL Est Cr Clr Drug Dosing 36.05 mL/min Estimated GFR (MDRD) 54 mL/min Glucose 87 (74-106) mg/dL POC Glucose 65 (65-110) mg/dl Calcium 9.2 (8.5-10.1) mg/dL Total Bilirubin 0.4 (0.2-1.0) mg/dL AST 25 (15-37) U/L ALT 27 (12-78) U/L Alkaline Phosphatase 57 (46-116) IU/L C-Reactive Protein 1.6 H (<=0.9) mg/dL Total Protein 6.0 L (6.4-8.2) g/dL Albumin 2.3 L (3.4-5.0) g/dL [place] Results Last 24 Hours: Microbiology 05/26/17 13:23 Aerobic Blood Culture - Preliminary Blood - Venous - Lab Draw NO GROWTH AFTER 3 DAYS Anaerobic Blood Culture - Preliminary NO GROWTH AFTER 3 DAYS 05/26/17 13:18 Aerobic Blood Culture - Preliminary Blood - Venous NO GROWTH AFTER 3 DAYS Anaerobic Blood Culture - Preliminary NO GROWTH AFTER 3 DAYS Med Orders - Current: Current Medications Acetaminophen (Tylenol Arthritis Pain) 650 mg PO BID@0800,1999 [facility] Last Admin: 05/30/17 08:54 Dose: 650 mg Albuterol/Ipratropium (Duoneb 3.0-0.5 Mg/3 Ml) 3 ml NEB ASDIRECTED PRN PRN Reason: sob Albuterol/Ipratropium (Duoneb 3.0-0.5 Mg/3 Ml) 3 ml NEB QID [facility] Last Admin: 05/30/17 08:47 Dose: 3 ml Arformoterol Tartrate (Brovana) 15 mcg NEB BIDRT [facility] Last Admin: 05/30/17 08:47 Dose: 15 mcg Artificial Tears (Liquitears 1.4% Ophth Soln) 1 ml EYEBOTH ASDIRECTED PRN PRN Reason: Dry Eyes Azithromycin (Zithromax) 500 mg PO DAILY@1200 [facility] Last Admin: 05/29/17 12:02 Dose: 500 mg Benzonatate (Tessalon Perles) 200 mg PO BID [facility] Last Admin: 05/30/17 08:53 Dose: 200 mg Budesonide (Pulmicort) 0.5 mg NEB BIDRT [facility] Last Admin: 05/30/17 09:21 Dose: 0.5 mg Ceftazidime (Fortaz) 1 gm IVPUSH Q8H [facility] Last Admin: 05/30/17 05:45 Dose: 1 gm Famotidine (Pepcid) 20 mg PO BEDTIME [facility] Last Admin: 05/29/17 20:16 Dose: 20 mg Finasteride (Proscar) 5 mg PO BEDTIME [facility] Last Admin: 05/29/17 20:15 Dose: 5 mg Furosemide (Lasix) 80 mg IVPUSH DAILY [facility] Last Admin: 05/30/17 09:20 Dose: Not Given Gabapentin (Neurontin) 300 mg PO BEDTIME [facility] Last Admin: 05/29/17 20:15 Dose: 300 mg Guaifenesin/Dextromethorphan (Mucinex Dm Er 600-30 Mg) 1 tab PO BID [facility] Last Admin: 05/30/17 08:52 Dose: 1 tab Metronidazole 500 mg/ Premix 100 mls @ 100 mls/hr IV Q8H [facility] Last Admin: 05/30/17 05:45 Dose: 100 mls/hr Insulin Aspart (Novolog) 0 unit SUBCUT ACBED [facility] PRN Reason: Protocol Last Admin: 05/30/17 08:47 Dose: Not Given Insulin Detemir (Levemir) 40 unit SUBCUT DAILY [facility] Last Admin: 05/30/17 09:22 Dose: Not Given Isosorbide Mononitrate (Imdur) 60 mg PO DAILY [facility] Last Admin: 05/30/17 09:21 Dose: Not Given Lorazepam (Ativan) 0.5 mg PO BID PRN PRN Reason: Anxiety Methyl Salicylate (Icy Hot Cream) 0 gm TOP ASDIRECTED PRN PRN Reason: Muscle aches Last Admin: 05/26/17 21:45 Dose: 1 applic Metoprolol Tartrate (Lopressor) 50 mg PO BID@ [facility] Last Admin: 05/30/17 09:20 Dose: 50 mg Sodium Chloride (Saline Flush) 10 ml FLUSH ASDIRECTED PRN PRN Reason: Keep Vein Open Last Admin: 05/30/17 05:46 Dose: 10 ml Tamsulosin HCl (Flomax) 0.8 mg PO DAILY@1999 [facility] Last Admin: 05/29/17 20:16 Dose: 0.8 mg Discontinued Medications Aspirin (Halfprin) 81 mg PO DAILY [facility] Last Admin: 05/27/17 08:04 Dose: 81 mg Furosemide (Lasix) 40 mg IVPUSH NOW ONE Stop: 05/30/17 09:34 Azithromycin 500 mg/ Sodium (Chloride) 250 mls @ 250 mls/hr IV Q24H [facility] Last Admin: 05/28/17 16:18 Dose: 250 mls/hr Insulin Aspart (Novolog) 20 unit SUBCUT ONETIME ONE PRN Reason: Protocol Stop: 05/27/17 17:01 Last Admin: 05/27/17 18:05 Dose: 20 units Insulin Human NPH (Humulin N) 20 unit SUBCUT Q12HR [facility] Last Admin: 05/27/17 22:35 Dose: Not Given Insulin Human NPH (Humulin N) 26 unit SUBCUT Q12HR [facility] Last Admin: 05/28/17 08:02 Dose: 26 units Insulin Human NPH (Humulin N) 35 unit SUBCUT Q12HR [facility] Last Admin: 05/28/17 19:24 Dose: 35 unit Insulin Human Regular (Humulin R) 10 unit SUBCUT BIDAC [facility] Stop: 05/26/17 23:59 Last Admin: 05/26/17 20:57 Dose: 10 units Insulin Human Regular (Humulin R) 10 unit SUBCUT ONETIME ONE PRN Reason: Protocol Stop: 05/27/17 00:02 Last Admin: 05/27/17 00:44 Dose: 10 units Insulin Human Regular (Humulin R) 10 unit IV ONETIME ONE Stop: 05/27/17 21:11 Last Admin: 05/27/17 21:57 Dose: 10 units Insulin Human Regular (Humulin R) 15 unit SUBCUT ONETIME ONE Stop: 05/28/17 20:01 Last Admin: 05/28/17 21:15 Dose: 15 units Lisinopril (Prinivil) 2.5 mg PO BEDTIME [facility] Last Admin: 05/28/17 19:22 Dose: 2.5 mg Losartan Potassium (Cozaar) 25 mg PO BEDTIME [facility] Methylprednisolone Sodium Succinate (Solu-Medrol) 20 mg IVPUSH Q12H [facility] Last Admin: 05/27/17 13:46 Dose: 20 mg Methylprednisolone Sodium Succinate (Solu-Medrol) 20 mg IVPUSH Q12HR [facility] Last Admin: 05/28/17 19:21 Dose: 20 mg - Exam General: Alert, Oriented, Cooperative, No Acute Distress HEENT: Pupils Reactive, Mucous Membr. Moist/[place] Neck: Supple, Trachea Midline, No JVD Lungs: Decreased Breath Sounds Cardiovascular: Regular Rate, Regular Rhythm GI/Abdominal Exam: Normal Bowel Sounds, Soft, Non-Tender, No Distention (Male) Exam: Other (permanent indwelling urinary catheter) Back Exam: Normal Inspection Extremities: Pedal Edema (minimal, teds on) Skin: Warm, Dry, Intact Neurological: No New Focal Deficit Psy/Mental Status: Alert, Normal Affect, Normal Mood - Problem List & Annotations (1) Pneumonia SNOMED Code(s): 471060495 Code(s): J18.9 - PNEUMONIA, UNSPECIFIED ORGANISM Status: Acute Priority: High Current Visit: No Qualifiers: Pneumonia type: due to unspecified organism Laterality: unspecified laterality - Problem List Review Problem List Initiated/Reviewed/Updated: Yes - Plan Plan:: 05-26-17 Andrez Schmidt PA-C Admitting for IP therapy, from the [facility]. O2 sats 84-93% in the clinic, and respirations up to 28 breaths/min. Increased dyspnea with ambulation. Denied any CP. Says just so tired, weak, fatigued, no appetite, some nausea. Not able to take last doses of po antibiotic d/t nausea. Blood sugars have been reading High over the weekend. Patient very thirsty. Some headache last night. Consulted Dr. Burden at the time of admit. 05/27/17 Jenise Bonds MD Still with congested cough. Continue IV antibiotics. Blood sugar quite high. Insulin ordered. 05/28/17 Jenise Bonds MD Says he feels a little bit better today. Still with cough. Continue IV antibiotics. Blood sugars still high but he feels fine. Continue to adjust insulin. 05-29-17 Andrez Schmidt PA-C Thanks me for putting him in the hospital, says he feels so much better than he did on admit. Still some cough. Some SOB with ambulation, but says so much better - says worked with PT yesterday and was happy how well he did. Denies CP. Consulted with Dr. Burden, will consider discharge back to [facility] tomorrow. Need to continue acute care at least another day, will repeat labs in AM and exam tomorrow. 05-30-17 Andrez Schmidt PA-C Patient feels good, wants to go home to [facility]. Was hypoglycemic this morning and insulin held. BP 115/64 P 80, did hold Imdur and gave 40mg of Lasix instead of 80mg and gave Metoprolol. Will transfer back to the [facility] today, and continue to monitor VS and Glucose out there. Is up ambulating and clinically much improved from admit.
[2017-05-30] MEDS ORDERED: Insulin Detemir 100 Units/ML 3 ML Pen SUBCUT ONE (10:45)
--- NOTE | 2017-05-31 11:19 | PCM.DCSUM1 ---
Discharge Summary - Hospital Course Brief History: Admitted for acute treatment for pneumonia. Was hypoxic, weak, fatigued and coughing. - Discharge Data Discharge Date: 05/30/17 Discharge Disposition: Home, Self-Care 01 Condition: Good - Discharge Diagnosis/Problem(s) (1) Pneumonia SNOMED Code(s): 045011555 ICD Code: J18.9 - PNEUMONIA, UNSPECIFIED ORGANISM Status: Acute Priority : High Qualifiers: Pneumonia type: due to unspecified organism Laterality: unspecified laterality - Patient Summary/Data Consults: Consultations 05/26/17 12:57 Consult to Case Management [CONS] Routine OT Evaluation and Treatment [CONS] Routine PT Evaluation and Treatment [CONS] Routine Hospital Course: Responded well to IV antibiotics. Mycoplasma screen came back positive. He worked with PT and did well. Glucose was noted to be markedly elevated, possibly due to infection and then steroid administration. - Patient Instructions Diet: Diabetic Diet Activity: As Tolerated Driving: Do Not Drive Showering/Bathing: May Shower Other/Special Instructions: Please monitor VS and BS Q shift and call me with any concerns. - Discharge Plan Prescriptions/Med Rec: Azithromycin [Zithromax] 500 mg PO DAILY #6 tab Budesonide [Pulmicort] 0.5 mg NEB BIDRT #1 neb Cefuroxime Axetil [Cefuroxime] 500 mg PO BID #10 tablet Insulin Detemir [Levemir] 20 unit SUBCUT DAILY #1 pen metroNIDAZOLE [Flagyl] 500 mg PO TID #15 tab Salmeterol Xinafoate [Serevent Diskus] 50 mcg IH BID #1 diskus Home Medications: Home Meds Acetaminophen with Codeine [Tylenol with Codeine #3 Tablet] 1 tab PO Q3HR PRN [History] Aspirin [Halfprin] 81 mg PO DAILY 03/14/15 [History] Furosemide [Lasix] 80 mg PO DAILY 03/14/15 [History] Ketotifen [Ketotifen 0.025% Ophth Soln] 2 drop EYEBOTH ASDIRECTED PRN 03/14/15 [ History] Loperamide HCl [Imodium A-D] 2 mg PO ASDIRECTED PRN 03/14/15 [History] Metoprolol Tartrate 50 mg PO 08,20 03/14/15 [History] Multivitamin [Multi-Vitamin Daily] 1 tab PO DAILY 03/14/15 [History] Naproxen Sodium 220 mg PO DAILY PRN 03/14/15 [History] Potassium Chloride [Klor-Con M20] 20 meq PO DAILY 03/14/15 [History] Simvastatin [Zocor] 40 mg PO BEDTIME 03/14/15 [History] predniSONE [Prednisone] 5 mg PO DAILY 03/14/15 [History] Acetaminophen [Tylenol Arthritis Pain] 650 mg PO 11/27/16 [History] Albuterol/Ipratropium [DuoNeb 3.0-0.5 MG/3 ML] 3 ml NEB QID 11/27/16 [History] Dextran 70/Hypromellose [Artificial Tears] 1 drop EYEBOTH ASDIRECTED PRN [History] Gabapentin [Neurontin] 300 mg PO BEDTIME 11/27/16 [History] Famotidine [Pepcid] 20 mg PO BEDTIME #30 tablet 12/18/16 [Rx] Isosorbide Mononitrate [Isosorbide Mononitrate ER] 60 mg PO DAILY #30 tab.sr.24h 12/18/16 [Rx] Phenylephrine HCl [Sudogest PE] 10 mg PO Q4HR PRN MDD 6 12/18/16 [History] Albuterol/Ipratropium [DuoNeb 3.0-0.5 MG/3 ML] 3 ml NEB 6XDAY PRN 05/26/17 [ History] Finasteride [Proscar] 5 mg PO BEDTIME 05/26/17 [History] LORazepam 0.5 mg PO BID PRN 05/26/17 [History] Tamsulosin [Flomax] 0.8 mg PO DAILY@199905/26/17 [History] guaiFENesin/Dextromethorphan [Tussin Dm Cough Syrup] 5 ml PO Q4HR PRN 05/26/17 [ History] Azithromycin [Zithromax] 500 mg PO DAILY #6 tab 05/30/17 [Rx] Budesonide [Pulmicort] 0.5 mg NEB BIDRT #1 neb 05/30/17 [Rx] Cefuroxime Axetil [Cefuroxime] 500 mg PO BID #10 tablet 05/30/17 [Rx] Insulin Detemir [Levemir] 20 unit SUBCUT DAILY #1 pen 05/30/17 [Rx] Salmeterol Xinafoate [Serevent Diskus] 50 mcg IH BID #1 diskus 05/30/17 [Rx] metroNIDAZOLE [Flagyl] 500 mg PO TID #15 tab 05/30/17 [Rx] - Discharge Summary/Plan Comment DC Time >30 min.: Yes Discharge Summary/Plan Comment: Transferred back to [facility] Basic Unit on po antibiotics. Nursing staff will monitor VS and glucose, and we will adjust insulin as needed. - Patient Data Vitals - Most Recent: Last Vital Signs Temp 98.5 F 05/30/17 08:00 Pulse 86 05/30/17 09:20 Resp 16 05/30/17 08:00 BP 115/69 05/30/17 09:20 Pulse Ox 96 05/30/17 08:00 Weight - Most Recent: 361 lb 15.984 oz DONALD Results - Last 24 hrs: Microbiology 05/26/17 13:23 Aerobic Blood Culture - Preliminary Blood - Venous - Lab Draw NO GROWTH AFTER 4 DAYS Anaerobic Blood Culture - Preliminary NO GROWTH AFTER 4 DAYS 05/26/17 13:18 Aerobic Blood Culture - Preliminary Blood - Venous NO GROWTH AFTER 4 DAYS Anaerobic Blood Culture - Preliminary NO GROWTH AFTER 4 DAYS 05/29/17 06:50 Mycoplasma Serology - Final Blood Med Orders - Current: Current Medications Discontinued Medications Acetaminophen (Tylenol Arthritis Pain) 650 mg PO BID@0800,1999 [facility] Last Admin: 05/30/17 08:54 Dose: 650 mg Albuterol/Ipratropium (Duoneb 3.0-0.5 Mg/3 Ml) 3 ml NEB ASDIRECTED PRN PRN Reason: sob Albuterol/Ipratropium (Duoneb 3.0-0.5 Mg/3 Ml) 3 ml NEB QID [facility] Last Admin: 05/30/17 08:47 Dose: 3 ml Arformoterol Tartrate (Brovana) 15 mcg NEB BIDRT [facility] Last Admin: 05/30/17 08:47 Dose: 15 mcg Artificial Tears (Liquitears 1.4% Ophth Soln) 1 ml EYEBOTH ASDIRECTED PRN PRN Reason: Dry Eyes Aspirin (Halfprin) 81 mg PO DAILY [facility] Last Admin: 05/27/17 08:04 Dose: 81 mg Azithromycin (Zithromax) 500 mg PO DAILY@1200 [facility] Last Admin: 05/29/17 12:02 Dose: 500 mg Benzonatate (Tessalon Perles) 200 mg PO BID [facility] Last Admin: 05/30/17 08:53 Dose: 200 mg Budesonide (Pulmicort) 0.5 mg NEB BIDRT [facility] Last Admin: 05/30/17 09:21 Dose: 0.5 mg Ceftazidime (Fortaz) 1 gm IVPUSH Q8H [facility] Last Admin: 05/30/17 05:45 Dose: 1 gm Famotidine (Pepcid) 20 mg PO BEDTIME [facility] Last Admin: 05/29/17 20:16 Dose: 20 mg Finasteride (Proscar) 5 mg PO BEDTIME [facility] Last Admin: 05/29/17 20:15 Dose: 5 mg Furosemide (Lasix) 80 mg IVPUSH DAILY [facility] Last Admin: 05/30/17 09:20 Dose: Not Given Furosemide (Lasix) 40 mg IVPUSH NOW ONE Stop: 05/30/17 09:34 Last Admin: 05/30/17 10:58 Dose: 40 mg Gabapentin (Neurontin) 300 mg PO BEDTIME [facility] Last Admin: 05/29/17 20:15 Dose: 300 mg Guaifenesin/Dextromethorphan (Mucinex Dm Er 600-30 Mg) 1 tab PO BID [facility] Last Admin: 05/30/17 08:52 Dose: 1 tab Azithromycin 500 mg/ Sodium (Chloride) 250 mls @ 250 mls/hr IV Q24H [facility] Last Admin: 05/28/17 16:18 Dose: 250 mls/hr Metronidazole 500 mg/ Premix 100 mls @ 100 mls/hr IV Q8H [facility] Last Admin: 05/30/17 05:45 Dose: 100 mls/hr Insulin Aspart (Novolog) 20 unit SUBCUT ONETIME ONE PRN Reason: Protocol Stop: 05/27/17 17:01 Last Admin: 05/27/17 18:05 Dose: 20 units Insulin Aspart (Novolog) 0 unit SUBCUT ACBED [facility] PRN Reason: Protocol Last Admin: 05/30/17 08:47 Dose: Not Given Insulin Detemir (Levemir) 40 unit SUBCUT DAILY [facility] Last Admin: 05/30/17 09:22 Dose: Not Given Insulin Detemir (Levemir) 20 unit SUBCUT ONETIME ONE Stop: 05/30/17 10:46 Last Admin: 05/30/17 10:56 Dose: 20 units Insulin Human NPH (Humulin N) 20 unit SUBCUT Q12HR [facility] Last Admin: 05/27/17 22:35 Dose: Not Given Insulin Human NPH (Humulin N) 26 unit SUBCUT Q12HR [facility] Last Admin: 05/28/17 08:02 Dose: 26 units Insulin Human NPH (Humulin N) 35 unit SUBCUT Q12HR [facility] Last Admin: 05/28/17 19:24 Dose: 35 unit Insulin Human Regular (Humulin R) 10 unit SUBCUT BIDAC [facility] Stop: 05/26/17 23:59 Last Admin: 05/26/17 20:57 Dose: 10 units Insulin Human Regular (Humulin R) 10 unit SUBCUT ONETIME ONE PRN Reason: Protocol Stop: 05/27/17 00:02 Last Admin: 05/27/17 00:44 Dose: 10 units Insulin Human Regular (Humulin R) 10 unit IV ONETIME ONE Stop: 05/27/17 21:11 Last Admin: 05/27/17 21:57 Dose: 10 units Insulin Human Regular (Humulin R) 15 unit SUBCUT ONETIME ONE Stop: 05/28/17 20:01 Last Admin: 05/28/17 21:15 Dose: 15 units Isosorbide Mononitrate (Imdur) 60 mg PO DAILY [facility] Last Admin: 05/30/17 09:21 Dose: Not Given Lisinopril (Prinivil) 2.5 mg PO BEDTIME [facility] Last Admin: 05/28/17 19:22 Dose: 2.5 mg Lorazepam (Ativan) 0.5 mg PO BID PRN PRN Reason: Anxiety Losartan Potassium (Cozaar) 25 mg PO BEDTIME [facility] Methyl Salicylate (Icy Hot Cream) 0 gm TOP ASDIRECTED PRN PRN Reason: Muscle aches Last Admin: 05/26/17 21:45 Dose: 1 applic Methylprednisolone Sodium Succinate (Solu-Medrol) 20 mg IVPUSH Q12H [facility] Last Admin: 05/27/17 13:46 Dose: 20 mg Methylprednisolone Sodium Succinate (Solu-Medrol) 20 mg IVPUSH Q12HR [facility] Last Admin: 05/28/17 19:21 Dose: 20 mg Metoprolol Tartrate (Lopressor) 50 mg PO BID@0800,2000 [facility] Last Admin: 05/30/17 09:20 Dose: 50 mg Sodium Chloride (Saline Flush) 10 ml FLUSH ASDIRECTED PRN PRN Reason: Keep Vein Open Last Admin: 05/30/17 05:46 Dose: 10 ml Tamsulosin HCl (Flomax) 0.8 mg PO DAILY@1999 [facility] Last Admin: 05/29/17 20:16 Dose: 0.8 mg *Q Meaningful Use (DIS) - VTE *Q VTE Criteria *Q: - Stroke *Q Stroke Criteria *Q: - AMI *Q AMI Criteria *Q:
== END 2017-05-30 11:40 | disposition home or self-care (01) | DRG 194 ==
LOC: LL.DI 11:29 → LL.MS 12:41
PROVIDERS: ADMIT Physician Assistant; ATTEND Family Medicine
DX: J18.9 Pneumonia, unspecified organism (principal); I13.0 Hypertensive heart and chronic kidney disease with heart failure and stage 1 through stage 4 chronic kidney disease, or unspecified chronic kidney disease; B96.0 Mycoplasma pneumoniae [M. pneumoniae] as the cause of diseases classified elsewhere; T17.900A Unspecified foreign body in respiratory tract, part unspecified causing asphyxiation, initial encounter; I10 Essential (primary) hypertension; I25.10 Atherosclerotic heart disease of native coronary artery without angina pectoris; I50.9 Heart failure, unspecified; N18.2 Chronic kidney disease, stage 2 (mild); E78.00 Pure hypercholesterolemia, unspecified; I25.2 Old myocardial infarction; I27.20 Pulmonary hypertension, unspecified; Z85.828 Personal history of other malignant neoplasm of skin; I73.9 Peripheral vascular disease, unspecified; J44.9 Chronic obstructive pulmonary disease, unspecified; M35.3 Polymyalgia rheumatica; E11.22 Type 2 diabetes mellitus with diabetic chronic kidney disease; E11.40 Type 2 diabetes mellitus with diabetic neuropathy, unspecified; E11.21 Type 2 diabetes mellitus with diabetic nephropathy; M15.0 Primary generalized (osteo)arthritis; F41.8 Other specified anxiety disorders; K21.9 Gastro-esophageal reflux disease without esophagitis; Z79.899 Other long term (current) drug therapy; Z85.46 Personal history of malignant neoplasm of prostate; Z87.11 Personal history of peptic ulcer disease; Z95.1 Presence of aortocoronary bypass graft; Z51.5 Encounter for palliative care
CPT/HCPCS: 36415; 71046; 80053; 82009; 82803; 82947; 82962; 83605; 83880; 84100; 85025; 86140; 86738; 87040; 94640; 97110-GP; 97116-GP; 97161-GP; 97530-GP; A9270-GY; J0456; J0713; J1815; J1815-GY; J1940; J2920; J7050

== ENCOUNTER 2017-06-24 19:26 | Emergency (ER) | payer MEDICARE, BC ==
[2017-06-24] MEDS ORDERED: Sodium Chloride 0.9% 10 ML Syringe FLUSH PRN (19:28)
[2017-06-24] MEDS ORDERED: Famotidine 20 MG/2 ML SDV IVPUSH ONE (19:28)
--- NOTE | 2017-06-24 19:28 | EDM.PDOC ---
ED HPI GENERAL MEDICAL PROBLEM - General Chief Complaint: General Stated Complaint: Constipation, Fever, tachycardia Time Seen by Provider: 06/24/17 19:27 Source of Information: Reports: Patient, EMS, Assisted Records (Limited), Old Records ([facility] EMR. No paper hospital chart available. ). Denies: EMS Notes Reviewed (Not available at time of dictation) History Limitations: Reports: No Limitations - History of Present Illness INITIAL COMMENTS - FREE TEXT/NARRATIVE: The patient was brought to the emergency room via ambulance with motion picture equipment supervisor accompaniment with no treatment in route. Patient's Accu-Chek by the paramedics was 232 mg percent. International Sales Manager did show irregular heart rhythm with heart rates ranging in the 120s to 150s per the motion picture equipment supervisor. The patient is a somewhat poor historian secondary to his presbycusis and borderline organic brain syndrome. By history from the nurses at the [facility] the patient apparently had some nonspecific chest pain earlier this morning with some dyspnea, however he did not notify the nursing staff at that time and he denies symptoms at this time or symptoms earlier today. He did mention some brief possible dyspnea to the paramedics upon their arrival. Patient did have some chills and shakes after supper today with blood pressure of 155/116 and pulse of 159 at that time. The patient denies any chest pain/pressure, heart flutter, dizziness, orthostasis, orthopnea, diaphoresis, paresthesias, recent decreased exercise tolerance, or any other anginal-type symptoms despite history as above with stable overall chronic nonspecific fatigue. No recent history of abdominal pain , heartburn, nausea, diarrhea, melena, gross hematochezia, or any food intolerance, including fatty foods, etc., despite not having a bowel movement for 3 days. He has been having problems with chronic urinary leakage from his urinary catheter, however no gross hematuria or other UTI symptoms. The patient also denies any recent fever, cough, wheezing, dyspnea, etc.. No history of recent visual changes, diplopia, change in mental status, or other change in neurological status, although he apparently had a nonspecific headache earlier today. Onset: Today, Unknown/Unsure Duration: Constant, Getting Worse Location: Reports: Other (No pain) Improves with: Reports: None Worsens with: Reports: None Context: Reports: Other (As above) Associated Symptoms: Reports: Confusion (Stable baseline), Chest Pain (Possible as above), Headaches, Shortness of Breath (As above), Weakness (Stable generalized). Denies: Cough, Diaphoresis, Fever/Chills, Loss of Appetite, Malaise, Nausea/Vomiting, Seizure Treatments FILTER PULP WASHER: Reports: Other (see below) (None) - Related Data Allergies Allergy/AdvReac Type Severity Reaction Status Date / Time No Known Allergies Allergy Verified 06/24/17 21:40 Home Meds: Home Meds Acetaminophen with Codeine [Tylenol with Codeine #3 Tablet] 1 tab PO Q3HR PRN [History] Aspirin [Halfprin] 81 mg PO DAILY 03/14/15 [History] Furosemide [Lasix] 80 mg PO DAILY 03/14/15 [History] Ketotifen [Ketotifen 0.025% Ophth Soln] 2 drop EYEBOTH ASDIRECTED PRN 03/14/15 [ History] Loperamide HCl [Imodium A-D] 2 mg PO ASDIRECTED PRN 03/14/15 [History] Metoprolol Tartrate 50 mg PO 03/14/15 [History] Multivitamin [Multi-Vitamin Daily] 1 tab PO DAILY 03/14/15 [History] Naproxen Sodium 220 mg PO DAILY PRN 03/14/15 [History] Potassium Chloride [Klor-Con M20] 20 meq PO DAILY 03/14/15 [History] Simvastatin [Zocor] 40 mg PO BEDTIME 03/14/15 [History] predniSONE [Prednisone] 5 mg PO DAILY 03/14/15 [History] Acetaminophen [Tylenol Arthritis Pain] 650 mg PO 11/27/16 [History] Albuterol/Ipratropium [DuoNeb 3.0-0.5 MG/3 ML] 3 ml NEB QID 11/27/16 [History] Dextran 70/Hypromellose [Artificial Tears] 1 drop EYEBOTH ASDIRECTED PRN [History] Gabapentin [Neurontin] 300 mg PO BEDTIME 11/27/16 [History] Famotidine [Pepcid] 20 mg PO BEDTIME #30 tablet 12/18/16 [Rx] Isosorbide Mononitrate [Isosorbide Mononitrate ER] 60 mg PO DAILY #30 tab.sr.24h 12/18/16 [Rx] Phenylephrine HCl [Sudogest PE] 10 mg PO Q4HR PRN MDD 6 12/18/16 [History] Albuterol/Ipratropium [DuoNeb 3.0-0.5 MG/3 ML] 3 ml NEB 6XDAY PRN 05/26/17 [ History] Finasteride [Proscar] 5 mg PO BEDTIME 05/26/17 [History] LORazepam 0.5 mg PO BID PRN 05/26/17 [History] Tamsulosin [Flomax] 0.8 mg PO DAILY@199905/26/17 [History] guaiFENesin/Dextromethorphan [Tussin Dm Cough Syrup] 5 ml PO Q4HR PRN 05/26/17 [ History] Clotrimazole [Lotrimin AF 1% Crm] 30 gm TOP BID 06/24/17 [History] Insulin Aspart [NovoLOG] 4 unit SQ ACBREAKFAST 06/24/17 [History] Insulin Detemir [Levemir] 28 unit SUBCUT DAILY 06/24/17 [History] Mometasone Furoate 200mcg [Asmanex HFA 200mcg] 2 puff IH BID 06/24/17 [History] Olodaterol HCl [Striverdi Respimat] 2 puff IH DAILY 06/24/17 [History] Past Medical History HEENT History: Reports: Allergic Rhinitis, Cataract, Hard of Hearing, Impaired Vision, Other (See Below). Denies: Glaucoma, Macular Degeneration, Retinal Detachment Other HEENT History: Dry eye syndrome, Chronic oral pain, bilateral presbycusis with bilateral hearing aide therapy, the patient wears glasses Cardiovascular History: Reports: Arrhythmia, Bypass, CAD, Cardiomyopathy, Heart Failure, Heart Murmur, High Cholesterol, Hypertension, [place], Pulmonary Hypertension, PVD, Other (See Below). 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 PACs with occasional borderline threatening atrial fibrillation diagnosed on 12/18/16 with no current Coumadin therapy Respiratory History: Reports: Bronchitis, Recurrent, COPD, Intubation, Previous , Pneumonia, Recurrent. Denies: Asthma, Intubation, Difficult, PE, Pneumothorax , Pulmonary Fibrosis, Sleep Apnea, TB Gastrointestinal History: Reports: Chronic Constipation, Chronic Diarrhea, Colon Polyp, Diverticulosis, GERD, GI Bleed, PUD, Other (See Below). Denies: Bowel Obstruction, Celiac Disease, Cholelithiasis, Fecal Incontinence, Gastritis , Hepatitis, Inflammatory Bowel Disease, Irritable Bowel Syndrome, Pancreatitis Other Gastrointestinal History: Upper GI bleed secondary to peptic ulcer disease in the 1980s requiring surgery as below, Mild dysphagia Genitourinary History: Reports: BPH, Chronic Renal Insuffiency, Prostate Disorder, Retention, Urinary, Urinary Incontinence, Other (See Below). Denies: Acute Renal Failure, Dialysis, Renal Calculus, STD, UTI, Recurrent Other Genitourinary History: Current chronic Edwards catheter therapy. Apparent prostate cancer as below with additional history of prostate calcification. Grade 2 chronic renal disease and recurrent hyperkalemia and hypokalemia Musculoskeletal History: Reports: Arthritis, Back Pain, Chronic, Neck Pain, Chronic, Osteoarthritis, Osteoporosis, RA, Other (See Below). 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 Denies: Alzheimers Disease, Brain Injury, Cerebral Aneurysms, CVA, Headaches, Chronic, Head Trauma, Migraines, MS, Parkinson's, Seizure, TIA Other Neuro History: Possible head concussion in his 30s Psychiatric History: Reports: Anxiety, Depression. Denies: Abuse, Victim of, ADD, ADHD, Addiction, Alzheimers Disease, Dementia, Psych Hospitalization(s), PTSD, Suicide Attempt, Suicidal Ideation Endocrine/Metabolic History: Reports: Diabetes, Type II, IDDM, Multinodular Thyroid, Osteoporosis, Other (See Below). Denies: Hyperthyroidism, Hypothyroidism Other Endocrine/Metabolic History: AODMID, thyroid nodules with right thyroid nodule by CT scan on 11/27/16 Hematologic History: Reports: Anemia, Blood Transfusion(s), Other (See Below). Denies: B12 Deficiency, Iron Deficiency Other Hematologic History: Blood transfusion of 2 units packed red blood cells in secondary to peptic ulcer disease as above Immunologic History: Reports: None. Denies: AIDS, HIV, SLE Oncologic (Cancer) History: Reports: Prostate, Other (See Below). Denies: Basal Cell Carcinoma, Hodgkin's Lymphoma, Leukemia, Lymphoma, Malignant Melanoma , Metastatic, Non-Hodgkin's Lymphoma, Squamous Cell Carcinoma, Thyroid Other Oncologic History: Prostate cancer with history of cryotherapy in his late 70s Dermatologic History: Reports: Cellulitis, Chronic Cellulitis, Decubitus Ulcer, Other (See Below). Denies: Eczema, Psoriasis, Venous Stasis Dermatitis Other Dermatologic History: Cutaneous Candidiasis, recurrent diabetic ulcers, recurrent cellulitis - Infectious Disease History Infectious Disease History: Reports: Chicken Pox, Measles, MRSA (Right ankle), Mumps. Denies: C-Difficile, Meningitis, Mononucleosis, Pertussis (Whooping Cough), Rheumatic Fever, Rubella, Scarlet Fever, Shingles, VRE - Past Surgical History Head Surgeries/Procedures: Reports: None HEENT Surgical History: Reports: Cataract Surgery, Eye Surgery, Oral Surgery, Other (See Below). Denies: Adenoidectomy, Laser Surgery, LASIK, Myringotomy w Tube(s), Naso-Sinus Surgery, Tonsillectomy Other HEENT Surgeries/Procedures: bilateral cataract surgery in about 2013, multiple teeth extractions with complete upper dentures and partial lowers Cardiovascular Surgical History: Reports: Carotid Endarterectomy, Coronary Artery Bypass, Vascular Surgery, Other (See Below). Denies: AAA Repair, Aneurysm, Cardiac Ablation, Coronary Artery Stent, Pacer, Percutaneous Transluminal Angioplasty, Varicose Other Cardiovascular Surgeries/Procedures: Bilateral carotid endarterectomy in about 2010, four-vessel CABG at age 88, right femoral artery bypass/stent placement in about 2010 Respiratory Surgical History: Reports: None. Denies: Lung Biopsies, Thoracentesis GI Surgical History: Reports: Appendectomy, Colonoscopy, Hernia, Inguinal, Other (See Below). Denies: Cholecystectomy, EGD, Hernia Repair/Other, Polypectomy Other GI Surgeries/Procedures: Right inguinal hernia repair in about 2001, appendectomy at about age 17, possible distant colonoscopy Male Surgical History: Reports: Circumcision, Prostate Biopsy, Other (See Below). Denies: Vasectomy Other Male Surgeries/Procedures: Circumcision as an , cryotherapy of prostate cancer as below Endocrine Surgical History: Reports: None. Denies: Thyroid Biopsy Neurological Surgical History: Reports: None. Denies: C-Spine, Discectomy, Laminectomy, Lumbar Spine, Spinal Fusion, Vertebroplasty Musculoskeletal Surgical History: Reports: Joint Replacement, Knee Replacement, Shoulder Replacement, Shoulder Surgery, Other (See Below). Denies: Amputation, Arthroscopic Knee, Arthroscopic Procedure, Carpal Tunnel, Ganglion Cyst, Hip Replacement, ORIF Other Musculoskeletal Surgeries/Procedures:: bilateral total knee arthroplasty with right TKA in about 2011 with left TKA in about 2012, right shoulder replacement in 2013 Oncologic Surgical History: Reports: None Dermatological Surgical History: Reports: None - Past Imaging History Past Imaging History: Reports: Angiography (Heart catheterization at age 88), Carotid US (Last carotid artery Doppler studies on 10/17/14), CAT Scan (CT of the chest on 11/27/16, CT of the abdomen and pelvis on 03/15/15), Swallow Study ( 03/16/15), Ultrasound (Last ultrasound of thyroid gland on 10/30/16 with previous evaluations on 08/23/15 and 10/13/13), Venous Doppler (11/27/16) Social & Family History - Family History HEENT: Reports: None. Denies: Glaucoma, Macular Degeneration, Retinal Detachment Cardiac: Reports: CAD, Heart Failure, Other (See Below). Denies: Afib, Aneurysm , Arrhythmia, Blood Clots/VTE/DVT, High Cholesterol, Hypertension, [place], PVD/COD, Syncope Other Cardiac Family History: Father with fatal CHF at age 75, brother with history of 5 vessel CABG at age 75, brother with CABG 2 at an unknown age Respiratory: Reports: None. Denies: Asthma, COPD, PE, Pneumothorax, Sleep Apnea GI: Reports: Cholelithiasis, Other (See Below). Denies: Celiac Disease, GERD, GI bleed, Inflammatory Bowel Disease, Irritable Bowel Syndrome, PUD Other GI Family History: Mother with cholelithiasis : Reports: None. Denies: Dialysis, Renal Calculus, Renal Disease/ Insufficiency OBGYN: Reports: None. Denies: Endometriosis, Recurrent Spontaneous Musculoskeletal: Reports: None. Denies: Gout, RA, SLE Neurological: Reports: CVA, Parkinson's, Other (See Below). Denies: Alzheimers Disease, Cerebral Aneurysms, Dementia, Migraines, MS, Seizure, TIA Other Neurological Family History: Mother with Parkinson's disease, father with CVA in his 70s Psychiatric: Reports: None. Denies: Abuse, Victim of, ADD, ADHD, Anxiety, Depression, Psych Hospitalization(s), PTSD, Suicide Attempt Endocrine/Metabolic: Reports: None. Denies: Diabetes, Type I, Diabetes, type II , Hypothyroidism, IDDM Hematologic: Reports: None. Denies: Anemia Immunologic: Reports: None. Denies: AIDS, HIV, SLE Dermatologic: Reports: None. Denies: Eczema, Psoriasis Oncologic: Reports: None. Denies: Colon, Hodgkin's Lymphoma, Leukemia, Lymphoma , Non-Hodgkin's Lymphoma, Prostate, Thyroid - Tobacco Use Smoking Status *Q: Former Smoker Tobacco Use Within Last Twelve Months: No Years of Tobacco use: 37 Packs/Tins Daily: 1 (Smoked between ages 20 and 57 with additional cigar use) Used Tobacco, but Quit: Yes Month/Year Tobacco Last Used: 1984 Smoking Cessation Information Provided To Patient: No Second Hand Smoke Exposure: No Second Hand Smoke Education Provided: No - Caffeine Use Caffeine Use: Reports: Coffee (One cup per day). Denies: Energy Drinks, Soda, Tea - Alcohol Use Days Per Week of Alcohol Use: 0 (No previous DWIs, problems with alcohol abuse, etc.) Number of Drinks Per Day: 0 (No alcohol use since age 89) Total Drinks Per Week: 0 Alcohol Use in Last Twelve Months: No - Recreational Drug Use Recreational Drug Use: No Drug Use in Last 12 Months: No Recreational Drug Type: Denies: Amphetamines (Speed), Cocaine, Heroin, Inhalants (Glues, Solvents, Aerosols), LSD (Acid), Marijuana/Hashish, Methamphetamine, Morphine, Oxycodone - Living Situation & Occupation Living situation: Reports: (2017, 3 children), Extended Care Facility ( [facility] in [place], [facility]) 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 ED EXAM, GENERAL - Physical Exam Exam: See Below Exam Limited By: No Limitations General Appearance: Alert, WD/WN, No Apparent Distress Eye Exam: Bilateral Eye: EOMI, Normal Inspection (No nystagmus, patient wearing glasses), PERRL Ears: Normal Canal, Normal TMs, Hearing Loss (Patient only wearing his right hearing aid today. Moderate to severe bilateral presbycusis) Nose: Normal Inspection, Normal Mucosa, No Blood Throat/Mouth: Normal Lips, Normal Teeth (Complete upper dentures with the patient not wearing his lower partials), Normal Gums, Normal Oropharynx, Normal Voice, No Airway Compromise. No: Dysphagia, Inflammation, Perioral Cyanosis Head: Atraumatic, Normocephalic. No: Facial Swelling, Facial Tenderness, Sinus Tenderness Neck: Supple, Non-Tender, Full Range of Motion, Carotid Bruit (Mild bilateral carotid bruits versus transmitted heart sounds). No: Lymphadenopathy (L), Lymphadenopathy (R), Thyromegaly Respiratory/Chest: No Respiratory Distress, No Accessory Muscle Use, Chest Non- Tender, Rales (Mild bilateral basilar rales), Rhonchi (Occasional bilateral). No: Wheezing, Pleural Rub, Retractions Cardiovascular: Normal Peripheral Pulses, No Edema (Dependent edema as below), No Gallop, No JVD, No Rub, Tachycardia, Systolic Murmur (1/6 CAPO at the aortic and mitral valves), Extra Beats (Frequent PACs and occasional PVCs by heart monitor). No: Gallop/S3, Gallop/S4, Friction Rub Peripheral Pulses: 1+: Dorsalis Pedis (L), Dorsalis Pedis (R), 2+: Radial (L), Radial (R) GI/Abdominal: Soft, Non-Tender, No Organomegaly, No Distention, No Abnormal Bruit, No Mass, Pelvis Stable, Abnormal Bowel Sounds (Mild diffuse increased bowel sounds not high-pitched in nature). No: Guarding (Male) Exam: Deferred Rectal (Males) Exam: Normal Rectal Tone, BPH (Mild), Heme - Stool, Tenderness ( No Jakub space tenderness), Other (Mild perirectal dermatitis). No: Fecal Impaction Back Exam: Full Range of Motion, Other (Moderate scoliosis). No: CVA Tenderness (L), CVA Tenderness (R), Muscle Spasm, Paraspinal Tenderness, Vertebral Tenderness Extremities: Normal Range of Motion, Non-Tender, Normal Capillary Refill, Pedal Edema (Trace to +1 bilateral pedal/pretibial edema). No: Monet's Sign Neurological: Alert, Normal Reflexes (Negative Babinski's), No Motor/Sensory Deficits, Confused (Borderline Organic brain syndrome) Psychiatric: Normal Affect, Normal Mood Skin Exam: Warm, Dry, No Rash, Decubitus (Grade to 1. 52 centimeter decubitus over the proximal adductor region of the right leg at site of catheter securing device), Ecchymosis (Mild in abdominal region at site of insulin injections), Wound/Incision (Mild cracked left heel). No: Diaphoretic, Increased Warmth, Jaundice, Lymphangitis, Petechiae, Rash Lymphatic: No Adenopathy EKG INTERPRETATION EKG Date: 06/24/17 Time: 19:50 Rhythm: Other (Sinus tachycardia with threatening atrial fibrillation and frequent PACs) Rate (Beats/Min): 110 [place]: Normal (Left cardiac axis) P-Wave: Enlarged (Moderate diffuse biphasic P waves) QRS: Normal (QRS interval of 0.08 seconds with improvement of previous repolarization changes and nonspecific ST changes in leads 1, aVL, and V6) ST-T: Other (As above) QT: Normal WI/PQ Interval: 0.21 seconds with extreme poor R-wave progression in the anterior leads Comparison: Change From Previous EKG (As above since 12/18/16) EKG Interpretation Comments: 1. No acute ischemic changes with stable nonspecific possible lateral wall cardiac ischemia 2. Frequent PACs with borderline atrial fibrillation 3. Left Atrial enlargement 4. First-degree AV block Course - Vital Signs Last Recorded V/S: Last Vital Signs Temp 38.8 C H 06/24/17 19:45 Pulse 105 H 06/24/17 21:32 Resp 28 H 06/24/17 21:32 BP 122/46 L 06/24/17 21:32 Pulse Ox 98 06/24/17 21:32 Vital Signs - 24 hr 06/24/17 06/24/17 06/24/17 19:30 19:35 19:45 Temperature [ 38.8 C H 38.8 C H Oral] Pulse, Peripheral Pulse, 120 H Peripheral [ Right Pulse Oximetry] Respiratory 32 H Rate Blood Pressure Blood Pressure 144/81 H [Left Upper Arm ] O2 Sat by Pulse 99 Oximetry O2 Sat by Pulse 97 Oximetry [ Nasal Cannula] 06/24/17 06/24/17 06/24/17 20:00 21:00 21:11 Temperature [ Oral] Pulse, 136 H Peripheral Pulse, 115 H 134 H Peripheral [ Right Pulse Oximetry] Respiratory 27 H 26 H Rate Blood Pressure 118/60 Blood Pressure 147/75 H 153/74 H [Left Upper Arm ] O2 Sat by Pulse 95 Oximetry O2 Sat by Pulse Oximetry [ Nasal Cannula] 06/24/17 06/24/17 21:15 21:32 Temperature [ Oral] Pulse, Peripheral Pulse, 109 H 105 H Peripheral [ Right Pulse Oximetry] Respiratory 28 H 28 H Rate Blood Pressure Blood Pressure 118/60 122/46 L [Left Upper Arm ] O2 Sat by Pulse 98 98 Oximetry O2 Sat by Pulse Oximetry [ Nasal Cannula] - Orders/Labs/Meds Orders: Active Orders 24 hr Category Date Time Status Cardiac Monitoring [RC] . DIRECTED Care 06/24/17 19:30 Active EKG Documentation Completion [RC] ASDIRECTED Care 06/24/17 19:31 Active Oxygen Therapy, ED [RC] CONTINUOUS Care 06/24/17 19:30 Active Peripheral IV Care [RC] . DIRECTED Care 06/24/17 19:29 Active Nothing Per Oral Diet [DIET] Diet 06/24/17 Breakfast Active Abdomen Series w Chest 1V [CR] Stat Exams 06/24/17 19:28 Taken CULTURE BLOOD [BC] Stat Lab 06/24/17 19:45 Received CULTURE BLOOD [BC] Stat Lab 06/24/17 20:17 Received CULTURE URINE [RM] Stat Lab 06/24/17 20:00 Received H PYLORI STOOL ANTIGEN [MREF] Urgent Lab 06/24/17 20:00 Ordered Sodium Chloride 0.9% [Saline Flush] Med 06/24/17 19:28 Active 10 ml FLUSH ASDIRECTED PRN Blood Culture x2 Reflex Set [OM.PC] Urgent Oth 06/24/17 19:28 Ordered Obtain Past Medical Record [OM.PC] Urgent Oth 06/24/17 19:28 Active Peripheral IV Insertion Adult [OM.PC] Stat Oth 06/24/17 19:28 Ordered Resuscitation Status Stat Resus Stat 06/24/17 19:28 Ordered Medication Orders Sodium Chloride (Saline Flush) 10 ml FLUSH ASDIRECTED PRN PRN Reason: Keep Vein Open Last Admin: 03/20/18 20:57 Dose: 10 ml Labs: Laboratory Tests 06/24/17 06/24/17 06/24/17 Range/Units 19:45 19:45 19:45 WBC 16.3 H (4.0-10.2) K/uL RBC 4.07 L (4.33-5.41) M/uL Hgb 11.9 L (13.1-16.8) g/dL Hct 36.8 L (39.0-49.0) % MCV 90.4 D (84.0-98.0) fL MCH 29.2 (28.2-33.3) pg MCHC 32.3 (31.7-36.0) g/dL RDW 14.9 H (11.2-14.1) % Plt Count 234 (150-350) K/uL Neut % (Auto) 91.4 H (45.0-80.0) % Lymph % (Auto) 3.2 L (10.0-50.0) % [place] % (Auto) 5.2 (2.0-14.0) % Eos % (Auto) 0.0 (0.0-5.0) % Baso % (Auto) 0.2 (0.0-2.0) % Neut # (Auto) 14.91 H (1.40-7.00) K/uL Lymph # (Auto) 0.53 (0.50-3.50) K/uL [place] # (Auto) 0.85 (0.00-1.00) K/uL Eos # (Auto) 0.00 (0.00-0.50) K/uL Baso # (Auto) 0.03 (0.00-0.20) K/uL PT 11.7 (9.8-11.7) SEC INR 1.1 APTT 25.7 (22.1-29.8) SEC Sodium (136-145) mmol/L Potassium (3.5-5.1) mmol/L Chloride (98-107) mmol/L Carbon Dioxide (21.0-32.0) mmol/L BUN (7-18) mg/dL Creatinine (0.51-1.17) mg/dL Est Cr Clr Drug Dosing Estimated GFR (MDRD) mL/min Glucose (74-106) mg/dL Lactic Acid (0.4-2.0) mmol/L Uric Acid (2.6-7.2) mg/dL Calcium (8.5-10.1) mg/dL Magnesium (1.8-2.4) mg/dL Total Bilirubin (0.2-1.0) mg/dL AST (15-37) U/L ALT (12-78) U/L Alkaline Phosphatase (46-116) IU/L Creatine Kinase (26-308) U/L Creatine Kinase Index (0.0-2.5) % CK-MB (CK-2) (0.00-3.60) ng/mL Troponin I (0.000-0.056) ng/mL NT-Pro-B Natriuret Pep (0-125) pg/mL Total Protein (6.4-8.2) g/dL Albumin (3.4-5.0) g/dL Amylase 73 (25-115) U/L Lipase (73-393) U/L TSH, Ultra Sensitive (0.358-3.740) mIU/mL Specimen Type Urine Color Urine Appearance Urine pH (5.0-9.0) Ur Specific [place] (1.005-1.030) Urine Protein (NEGATIVE) mg/dL Urine Glucose (UA) (NEGATIVE) mg/dL Urine Ketones (NEGATIVE) mg/dL Urine Occult Blood (NEGATIVE) Urine Nitrite (NEGATIVE) Urine Bilirubin (NEGATIVE) Urine Urobilinogen (0.2-1.0) E.U./dL Ur Leukocyte Esterase (NEGATIVE) Urine RBC /HPF Urine WBC /HPF Ur Epithelial Cells /LPF Urine Bacteria (NONE TO FEW) /HPF 06/24/17 06/24/17 06/24/17 Range/Units 19:45 19:45 20:00 WBC (4.0-10.2) K/uL RBC (4.33-5.41) M/uL Hgb (13.1-16.8) g/dL Hct (39.0-49.0) % MCV (84.0-98.0) fL MCH (28.2-33.3) pg MCHC (31.7-36.0) g/dL RDW (11.2-14.1) % Plt Count (150-350) K/uL Neut % (Auto) (45.0-80.0) % Lymph % (Auto) (10.0-50.0) % [place] % (Auto) (2.0-14.0) % Eos % (Auto) (0.0-5.0) % Baso % (Auto) (0.0-2.0) % Neut # (Auto) (1.40-7.00) K/uL Lymph # (Auto) (0.50-3.50) K/uL [place] # (Auto) (0.00-1.00) K/uL Eos # (Auto) (0.00-0.50) K/uL Baso # (Auto) (0.00-0.20) K/uL PT (9.8-11.7) SEC INR APTT (22.1-29.8) SEC Sodium 137 (136-145) mmol/L Potassium 4.3 (3.5-5.1) mmol/L Chloride 100 (98-107) mmol/L Carbon Dioxide 27.4 (21.0-32.0) mmol/L BUN 29 H (7-18) mg/dL Creatinine 1.14 (0.51-1.17) mg/dL Est Cr Clr Drug Dosing TNP Estimated GFR (MDRD) > 60 mL/min Glucose 263 H* (74-106) mg/dL Lactic Acid 2.1 H (0.4-2.0) mmol/L Uric Acid 6.8 (2.6-7.2) mg/dL Calcium 8.9 (8.5-10.1) mg/dL Magnesium 1.6 L (1.8-2.4) mg/dL Total Bilirubin 0.4 (0.2-1.0) mg/dL AST 37 (15-37) U/L ALT 30 (12-78) U/L Alkaline Phosphatase 68 (46-116) IU/L Creatine Kinase 59 (26-308) U/L Creatine Kinase Index 2.7 H (0.0-2.5) % CK-MB (CK-2) 1.60 (0.00-3.60) ng/mL Troponin I 0.064 H* (0.000-0.056) ng/mL NT-Pro-B Natriuret Pep 2386 H (0-125) pg/mL Total Protein 6.7 (6.4-8.2) g/dL Albumin 2.3 L (3.4-5.0) g/dL Amylase (25-115) U/L Lipase 394 H (73-393) U/L TSH, Ultra Sensitive 0.459 (0.358-3.740) mIU/mL Specimen Type Urincc Urine Color Yellow Urine Appearance Cloudy Urine pH 6.0 (5.0-9.0) Ur Specific [place] 1.015 (1.005-1.030) Urine Protein 100 H (NEGATIVE) mg/dL Urine Glucose (UA) 100 H (NEGATIVE) mg/dL Urine Ketones Negative (NEGATIVE) mg/dL Urine Occult Blood Large H (NEGATIVE) Urine Nitrite Positive H (NEGATIVE) Urine Bilirubin Negative (NEGATIVE) Urine Urobilinogen 0.2 (0.2-1.0) E.U./dL Ur Leukocyte Esterase Moderate H (NEGATIVE) Urine RBC >100 H /HPF Urine WBC >100 H /HPF Ur Epithelial Cells Few /LPF Urine Bacteria Many H (NONE TO FEW) /HPF Blood cultures x 2 collected. Urine set up for culture and sensitivity Microbiology 06/24/17 19:45 Stool Occult Blood (DONALD) - Final Stool / Feces NEGATIVE OCCULT BLOOD Meds: Medications Generic Name Dose Route Start Last Admin Trade Name Freq PRN Reason Stop Dose Admin Sodium Chloride 10 ml 06/24/17 19:28 06/24/17 20:57 Saline Flush FLUSH 10 ml ASDIRECTED PRN Administration Keep Vein Open Discontinued Medications Generic Name Dose Route Start Last Admin Trade Name Freq PRN Reason Stop Dose Admin Acetaminophen 650 mg 06/24/17 21:13 06/24/17 21:23 Tylenol PO 06/24/17 21:14 650 mg NOW ONE Administration Famotidine 40 mg 06/24/17 19:28 06/24/17 20:51 Pepcid IVPUSH 06/24/17 19:29 40 mg ONETIME ONE Administration Furosemide 60 mg 06/24/17 20:46 06/24/17 20:57 Lasix IVPUSH 06/24/17 20:47 60 mg NOW ONE Administration Ceftriaxone Sodium 1 gm/ 100 mls @ 200 mls/hr 06/24/17 20:46 06/24/17 20:57 Sodium Chloride IV 06/24/17 21:15 200 mls/hr ONETIME ONE Administration Metoprolol Tartrate 5 mg 06/24/17 20:58 06/24/17 21:11 Lopressor IVPUSH 06/24/17 20:59 5 mg ONETIME ONE Administration - Radiology Interpretation Free Text/Narrative:: desk monitor showed sinus tachycardia with threatening atrial fibrillation and frequent PACs with average heart rates in the 110s to 130s with very occasional PVCs initially on arrival with subsequent improvement to the 90s to 100s prior to transfer after beta rosana therapy was given Acute abdominal x-rays shows evidence of moderate to severe cardiomegaly with mild to moderate mostly centralized CHF with Inna B lines noted. Moderate COPD with no direct pulmonary infiltrates, pneumothorax, etc. Moderate prominence of the proximal aortic arch with additional moderate aortic valve calcification. Note status post medial sternotomy and right shoulder arthroplasty. Additional significant scoliosis with moderate osteoarthritic and osteoporotic changes. Note somewhat increased previously elevated right hemidiaphragm. Large amounts of stool present with somewhat increased nonspecific bowel gaseous pattern with no free air, ileus, obstruction, fluid levels, etc. Departure - Departure Time of Disposition: 22:30 Disposition: DC/Tfer to [facility] Condition: Fair Clinical Impression: Peptic reflux disease, Renal insufficiency, IDDM (insulin dependent diabetes mellitus), Hypoalbuminemia, Hypomagnesemia, Mixed anxiety depressive disorder, Prostate cancer, Lactic acid increased Hypertension Qualifiers: Hypertension type: essential hypertension Qualified Code(s): I10 - Essential ( primary) hypertension Coronary artery disease Qualifiers: Coronary Disease-Associated Artery/Lesion type: bypass graft, autologous vein Associated angina: with unstable angina Qualified Code(s): I25.710 - 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 COPD (chronic obstructive pulmonary disease) Qualifiers: COPD type: emphysema Emphysema type: panlobular Qualified Code(s): J43.1 - Panlobular emphysema Hyperlipidemia Qualifiers: Hyperlipidemia type: unspecified Qualified Code(s): E78.5 - Hyperlipidemia, unspecified CHF (congestive heart failure) Qualifiers: Heart failure type: unspecified Heart failure chronicity: acute on chronic Qualified Code(s): I50.9 - Heart failure, unspecified Osteoarthritis Qualifiers: Osteoarthritis location: multiple joints Osteoarthritis type: primary Qualified Code(s): M15.0 - Primary generalized (osteo)arthritis Constipation Qualifiers: Constipation type: chronic idiopathic constipation Qualified Code(s): K59.04 - Chronic idiopathic constipation UTI (urinary tract infection) Qualifiers: Urinary tract infection type: acute cystitis Hematuria presence: without hematuria Qualified Code(s): N30.00 - Acute cystitis without hematuria Anemia Qualifiers: Anemia type: unspecified type Qualified Code(s): D64.9 - Anemia, unspecified - Discharge Information Referrals: Sheets-Yari Bonds MD [Primary Care Provider] - Forms: ED Department Discharge, Interfacility Transfer EMTALA - Problem List & Annotations (1) CHF (congestive heart failure) SNOMED Code(s): 67297467 Code(s): I50.9 - HEART FAILURE, UNSPECIFIED Status: Acute Priority: High Onset Date: 11/27/16 Annotation/Comment:: Moderate BNP elevation with additional CHF by chest x-ray. IV Lasix initiated in the emergency room. No further cardiology consultation or workup per the patient's request, including heart catheterization, echocardiogram, etc. Note comfort care as below. Telephone consultation at 20:[address] Brambila, hospitalist at the [facility], who does agree to accept a bed is available in that facility. She is aware of the patient's NO CODE STATUS as above. Subsequent telephone consultation with her at 21:13 hours with [facility] refusing transfer to their facility secondary to cardiac symptoms despite NO CODE STATUS as above. Subsequent telephone consultation at 21:[address] Landers, hospitalist at [facility], who does accept the patient for direct admission, with no further treatment recommendations given. Dr. Landers is also aware of the patient's NO CODE STATUS. Ambulance transfer with motion picture equipment supervisor accompaniment. Standard rule out [place] orders recommended Qualifiers: Heart failure type: unspecified Heart failure chronicity: acute on chronic Qualified Code(s): I50.9 - Heart failure, unspecified (2) Coronary artery disease SNOMED Code(s): 60611760 Code(s): I25.10 - ATHSCL HEART DISEASE OF [place] CORONARY ARTERY W/O ANG PCTRS Status: Chronic Priority: High Annotation/Comment:: No true chest pain or anginal type symptoms and therefore chest pain protocol was not initiated on arrival. Note CHF as above. Once again threatening atrial fibrillation with frequent PACs and occasional PVCs and some tachycardia secondary to current fever. IV Lopressor given in the emergency room. Note status post CABG as above. No EKG changes with mildly elevated troponin I likely secondary to his CHF and artifactually elevated CK index with low CK baseline. 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 The patient denies significant abdominal pain at this time. Continue to observe symptoms closely especially in light of his significant leukocytosis. Cannot rule out colitis and/or diverticulitis with negative rectal exam and Hemoccult today. Blood cultures 2 have been collected with continuation of IV Rocephin in the emergency room with consideration of additional IV Flagyl depending on his clinical course. Qualifiers: Constipation type: chronic idiopathic constipation Qualified Code(s): K59.04 - Chronic idiopathic constipation (4) UTI (urinary tract infection) SNOMED Code(s): 18889591 Code(s): N39.0 - URINARY TRACT INFECTION, SITE NOT SPECIFIED Status: Acute Priority: High Onset Date: 06/24/17 Annotation/Comment:: Edwards catheter replaced as below. Urine specimen set up for culture and sensitivity. Initiated IV Rocephin antibiotic therapy as above. Qualifiers: Urinary tract infection type: acute cystitis Hematuria presence: without hematuria Qualified Code(s): N30.00 - Acute cystitis without hematuria (5) Hypertension SNOMED Code(s): 05922221 Code(s): I10 - ESSENTIAL (PRIMARY) HYPERTENSION Status: Acute Priority: High Annotation/Comment:: Blood pressure was elevated prior to transfer to this facility as above. Blood pressures were under relatively good control in the emergency room. Continue to observe closely especially in light of initiation of IV Lasix therapy Qualifiers: Hypertension type: essential hypertension Qualified Code(s): I10 - Essential (primary) hypertension (6) Hypoalbuminemia SNOMED Code(s): 149289897 Code(s): E88.09 - OTH DISORDERS OF PLASMA-PROTEIN METABOLISM, NEC Status: Chronic Priority: Medium Annotation/Comment:: High-protein Glucerna supplements twice a day as snacks advisable (7) Hypomagnesemia SNOMED Code(s): 552097823 Code(s): E83.42 - HYPOMAGNESEMIA Status: Acute Priority: Medium Onset Date: 06/24/17 Annotation/Comment:: Magnesium oxide therapy recommended in light of patient's IV Lasix therapy as above and also history of chronic constipation (8) IDDM (insulin dependent diabetes mellitus) SNOMED Code(s): 72371694 Code(s): E11.9 - TYPE 2 DIABETES MELLITUS WITHOUT COMPLICATIONS; Z79.4 - ALF (CURRENT) USE OF INSULIN Status: Chronic Priority: Medium Annotation/Comment:: 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 Continue to observe renal function and blood sugars closely secondary to Lasix therapy and his leukocytosis. Consider glycosylated hemoglobin in the a.m. (9) Renal insufficiency SNOMED Code(s): 554750018 Code(s): N28.9 - DISORDER OF KIDNEY AND URETER, UNSPECIFIED Status: Chronic Priority: High Onset Date: 11/27/16 Annotation/Comment:: As above. Creatinine normal today. Continue to observe closely secondary to his IV Lasix (10) COPD (chronic obstructive pulmonary disease) SNOMED Code(s): 69214823 Code(s): J44.9 - CHRONIC OBSTRUCTIVE PULMONARY DISEASE, UNSPECIFIED Status : Chronic Priority: Medium Annotation/Comment:: COPD by chest x-ray with no recent bronchitic type symptoms or history of aspiration, however note leukocytosis and fever today. Continue to observe closely Qualifiers: COPD type: emphysema Emphysema type: panlobular Qualified Code(s): J43.1 - Panlobular emphysema (11) Hyperlipidemia SNOMED Code(s): 58777559 Code(s): E78.5 - HYPERLIPIDEMIA, UNSPECIFIED Status: Chronic Priority: Medium Annotation/Comment:: 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 SNOMED Code(s): 470162093 Code(s): F41.8 - OTHER SPECIFIED ANXIETY DISORDERS Status: Chronic Priority: Medium Annotation/Comment:: Stable by history (13) Need for comfort care SNOMED Code(s): 169705157 Code(s): TKS8283 - Status: Chronic Priority: Medium Annotation/Comment :: As above with comfort care verified with the patient today (14) Peptic reflux disease SNOMED Code(s): 25227344 Code(s): K21.9 - GASTRO-ESOPHAGEAL REFLUX DISEASE WITHOUT ESOPHAGITIS Status: Chronic Priority: Medium Annotation/Comment:: Stable by history with no true abdominal pain despite his constipation as above. High-dose IV Pepcid given in the emergency room as GI prophylaxis. (15) Prostate neoplasm SNOMED Code(s): 245092867 Code(s): D49.5 - NEOPLASM OF UNSP BEHAVIOR OF OTHER GENITOURIN * DO NOT USE * Status: Chronic Priority: Medium Annotation/Comment:: Note chronic Edwards catheter therapy significant leakage day and Edwards catheter replaced with no further leakage. Leakage is present both from catheter site and also from leg bag with leg ulcer also noted as above with no local signs of infection. Consider wound specimen secondary to his previous MRSA (16) Lactic acid increased SNOMED Code(s): 87371990 Code(s): E87.2 - ACIDOSIS Status: Acute Priority: High Onset Date: Annotation/Comment:: Despite tachycardia and mild lactic acid elevation no direct evidence of clinical sepsis. Note aggressive antibiotic therapy initiated in the emergency room as above. Repeat lactic acid level in about 3 hours and in the a.m. recommended (17) Anemia SNOMED Code(s): 637435019 Code(s): D64.9 - ANEMIA, UNSPECIFIED Status: Chronic Priority: Medium Annotation/Comment:: Stable from previous evaluations. Likely secondary to chronic illnesses and renal function. Consider workup depending on his clinical course Qualifiers: Anemia type: unspecified type Qualified Code(s): D64.9 - Anemia, unspecified - Problem List Review Problem List Initiated/Reviewed/Updated: Yes - My Orders Last 24 Hours: My Active Orders 06/24/17 19:28 Abdomen Series w Chest 1V [CR] Stat Sodium Chloride 0.9% [Saline Flush] 10 ml FLUSH ASDIRECTED PRN Blood Culture x2 Reflex Set [OM.PC] Urgent Obtain Past Medical Record [OM.PC] Urgent Peripheral IV Insertion Adult [OM.PC] Stat Resuscitation Status Stat 03/20/18 19:29 Peripheral IV Care [RC] . DIRECTED 06/24/17 19:30 Cardiac Monitoring [RC] . DIRECTED Oxygen Therapy, ED [RC] CONTINUOUS 06/24/17 19:31 EKG Documentation Completion [RC] ASDIRECTED 06/24/17 19:45 CULTURE BLOOD [BC] Stat 06/24/17 20:00 CULTURE URINE [RM] Stat H PYLORI STOOL ANTIGEN [MREF] Urgent 06/24/17 20:17 CULTURE BLOOD [BC] Stat 06/24/17 Breakfast Nothing Per Oral Diet [DIET] - Assessment/Plan Last 24 Hours: My Active Orders 06/24/17 19:28 Abdomen Series w Chest 1V [CR] Stat Sodium Chloride 0.9% [Saline Flush] 10 ml FLUSH ASDIRECTED PRN Blood Culture x2 Reflex Set [OM.PC] Urgent Obtain Past Medical Record [OM.PC] Urgent Peripheral IV Insertion Adult [OM.PC] Stat Resuscitation Status Stat 06/24/17 19:29 Peripheral IV Care [RC] . DIRECTED 06/24/17 19:30 Cardiac Monitoring [RC] . DIRECTED Oxygen Therapy, ED [RC] CONTINUOUS 06/24/17 19:31 EKG Documentation Completion [RC] ASDIRECTED 06/24/17 19:45 CULTURE BLOOD [BC] Stat 06/24/17 20:00 CULTURE URINE [RM] Stat H PYLORI STOOL ANTIGEN [MREF] Urgent 06/24/17 20:17 CULTURE BLOOD [BC] Stat 06/24/17 Breakfast Nothing Per Oral Diet [DIET] Assessment:: As above Plan: As above. Extensive precautions were given to the patient, who is in agreement with the treatment plan. Ambulance transfer with motion picture equipment supervisor accompaniment as above
[2017-06-24 20:19] LABS: CHLORIDE,CL 100 mmol/L (98-107); SODIUM,NA 137 mmol/L (136-145)
[2017-06-24] MEDS ORDERED: Furosemide 40 MG/4 ML VIAL IVPUSH ONE (20:46)
[2017-06-24] MEDS ORDERED: cefTRIAXone 1 GM in Sodium Chloride 0.9% 100 ML IV ONE (20:46)
[2017-06-24] MEDS ORDERED: Metoprolol Tartrate 5 MG/5 ML SDV IVPUSH ONE (20:58)
[2017-06-24] MEDS ORDERED: Acetaminophen 325 MG Tab PO ONE (21:13)
[2017-06-24 23:03] VITALS: BP 124/50
== END 2017-06-24 20:20 ==
LOC: LL.ED 19:26
DX: I11.0 Hypertensive heart disease with heart failure (principal); I50.9 Heart failure, unspecified; E83.42 Hypomagnesemia; J43.1 Panlobular emphysema; N28.9 Disorder of kidney and ureter, unspecified; I25.710 Atherosclerosis of autologous vein coronary artery bypass graft(s) with unstable angina pectoris; E78.5 Hyperlipidemia, unspecified; M15.0 Primary generalized (osteo)arthritis; K59.04 Chronic idiopathic constipation; N30.00 Acute cystitis without hematuria; D64.9 Anemia, unspecified; F41.8 Other specified anxiety disorders; K21.9 Gastro-esophageal reflux disease without esophagitis; E78.00 Pure hypercholesterolemia, unspecified; E11.9 Type 2 diabetes mellitus without complications; E87.2 Acidosis; C61 Malignant neoplasm of prostate; I25.2 Old myocardial infarction; Z79.899 Other long term (current) drug therapy; Z79.82 Long term (current) use of aspirin; Z79.4 Long term (current) use of insulin; Z87.891 Personal history of nicotine dependence
CPT/HCPCS: 36415; 51702; 74022; 80053; 81001; 82150; 82272; 82550; 82553; 83605; 83690; 83735; 83880; 84443; 84484; 84550; 85025; 85610; 85730; 87040; 87077; 87086; 87186; 93005; 93010; 96365; 96375; 99285; A9270-GY; J0696; J1940; J3490; J7050; S0028